=== PATIENT | male | born 1945 | race Caucasian/White ===

== ENCOUNTER 2020-09-20 08:07 | Outpatient (REF) | payer MEDICARE, SELFPAY ==
--- NOTE | ~2020-09-20 | US_ITS ---
EXAMINATION: US RETROPERITONEAL LIMITED (AORTA) CLINICAL INFORMATION: Screening for AAA. Tobacco abuse. COMPARISON: None. TECHNIQUE: Martin-scale, color Doppler and spectral Doppler evaluation of the abdominal aorta. Technically limited study secondary to bowel gas. FINDINGS: The measurements of the aorta in maximum AP and transverse dimensions respectively are as follows: There is moderate calcified plaque visualized in the abdominal aorta. Proximal: 3.0 x 2.9 cm. Mid: 2.3 x 2.3 cm. Distal: 1.8 x 2.0 cm. PSV: 102 cm/s. The measurements of the common iliac arteries in maximum AP and TRV dimensions are as follows: Right Common Iliac Artery: 1.2 x 1.2 cm. Left Common Iliac Artery: 1.2 x 1.2 cm. US/US aorta IMPRESSION: No evidence of abdominal aortic aneurysm. Moderate calcified plaque seen in the abdominal aorta. Normal bilateral common iliac arteries.
== END 2020-09-20 08:08 | disposition home or self-care (01) ==
LOC: HO.US 08:07
PROVIDERS: PCP Internal Medicine; Visit Provider Internal Medicine
DX: Z13.6 Encounter for screening for cardiovascular disorders (principal)
CPT/HCPCS: 76775

== ENCOUNTER 2022-07-23 16:14 | Inpatient (IN) | payer MEDICARE, SELFPAY ==
--- NOTE | ~2022-07-23 | XR_ITS ---
EXAMINATION: XR CHEST CLINICAL INFORMATION: Shortness of breath. COMPARISON: Chest radiograph 06/27/2015. TECHNIQUE: Frontal view of the chest was obtained. FINDINGS: Stable appearance of the cardiomediastinal silhouette with of atherosclerotic disease of the thoracic aorta. EKG wires overlie the chest. New diffuse interstitial coarsening. No dense focal airspace opacity. No pleural effusion or pneumothorax. No acute osseous abnormalities. XR/XR chest 1V IMPRESSION: New diffuse interstitial coarsening which is nonspecific and could be associated with bronchitis, reactive airways disease or atypical infections. Recommend clinical correlation and a follow-up study after treatment.
--- NOTE | 2022-07-23 16:16 | ED.SOB ---
HPI - SOB/Dyspnea General Chief Complaint: Dyspnea <RY Steiner - Last Filed: 07/23/22 16:25> Stated Complaint: SOB <RY Steiner - Last Filed: 07/23/22 16:25> Time Seen by Provider: 07/23/22 16:42 <RY Steiner - Last Filed: 07/23/22 16:25> Source: patient and family <Mariela Stinson MD - Last Filed: 07/23/22 20:09> Mode of arrival: ambulatory <Mariela Stinson MD - Last Filed: 07/23/22 20:09> History of Present Illness HPI Narrative: 77-year-old male who arrives as a referral from his primary care provider for shortness of breath. Patient and his report that he has had worsening shortness of breath over the past couple of weeks and has continued to smoke cigarettes and was noted to be 70% on room air upon arrival. He denies any associated fever, chills, but has had increased sputum production with cough. Otherwise he denies any GI or symptoms. <Mariela Stinson MD - Last Filed: 07/23/22 20:09> Related Data Home Medications: Home Medications Medication Instructions Recorded Confirmed albuterol sulfate 90 mcg/actuation 2 puff inhalation Q6H PRN wheezing 07/23/22 07/23/22 aerosol inhaler amlodipine 10 mg tablet 1 tab PO DAILY 07/23/22 07/23/22 cyanocobalamin (vitamin B-12) 1,000 mcg PO DAILY 07/23/22 07/23/22 1,000 mcg tablet garlic 1,000 mg capsule 2,000 mg PO DAILY 07/23/22 07/23/22 hydrochlorothiazide 12.5 mg tablet 1 tab PO DAILY 07/23/22 07/23/22 ketoconazole 2 % shampoo 1 appl topical MO 07/23/22 07/23/22 metformin 500 mg tablet,extended 2 tab PO DAILY@1700 07/23/22 07/23/22 release 24 hr multivitamin 1 tab PO DAILY 07/23/22 07/23/22 olmesartan 40 mg tablet 1 tab PO DAILY PRN high blood 07/23/22 07/23/22 pressure omega 6-lkd-hob-fish oil 1,000 mg 1 cap PO DAILY 07/23/22 07/23/22 (120 mg-180 mg) capsule (Fish Oil) simvastatin 10 mg tablet 1 tab PO BEDTIME 07/23/22 07/23/22 umeclidinium 62.5 mcg/actuation 1 puff inhalation DAILY 07/23/22 07/23/22 blister powder for inhalation (Incruse Ellipta) <RY Steiner - Last Filed: 07/23/22 16:25> Allergies/Adverse Reactions: Allergies Allergy/AdvReac Type Severity Reaction Status Date / Time No Known Allergies Allergy Unverified 04/06/20 15:42 [No Known Allergies*] <RY Steiner - Last Filed: 07/23/22 16:25> Review of Systems Review of Systems: Pertinent positives and negatives as stated in HPI <Mariela Stinson MD - Last Filed: 07/23/22 20:09> PMFSH Past Medical History Source: nursing notes reviewed <Mariela Stinson MD - Last Filed: 07/23/22 20:09> Social History Social History: Social History Advance Directives: No Advance Directives Information Provided: No <RY Steiner - Last Filed: 07/23/22 16:25> Physical Exam Vital Signs: Vital Signs: Last Vital Signs Temp 98.4 F 07/23/22 16:18 Pulse 97 07/23/22 18:09 Resp 15 07/23/22 18:09 BP 150/89 H 07/23/22 16:18 Pulse Ox 70 L 07/23/22 16:18 O2 Del Method 07/23/22 16:18 BMI result Body Mass Index 23.3 <RY Steiner - Last Filed: 07/23/22 16:25> Vital Signs: Last Vital Signs Temp 98.4 F 07/23/22 16:18 Pulse 97 07/23/22 18:09 Resp 15 07/23/22 18:09 BP 150/89 H 07/23/22 16:18 Pulse Ox 70 L 07/23/22 16:18 O2 Del Method 07/23/22 16:18 BMI result Body Mass Index 23.3 VITAL SIGNS: Reviewed. GENERAL: Chronically ill, elderly, in mild distress. HEAD: Normocephalic/atraumatic EYES: PERRLA, EOMI EARS: Ext canals without abnormality OROPHARYNX: no oral lesions noted, posterior pharynx clear LUNGS: Decreased breath sounds bilaterally with trace expiratory wheeze and occasional rhonchi, increased shortness of breath. SpO2<100> on 100% non-rebreather which is improved from 70% on room air. CARDIOVASCULAR: Regular rate and rhythm without noted murmurs, no JVD or lower extremity edema. ABDOMEN: Soft, non-tender, non-distended with bowel sounds. MUSCULOSKELETAL: No tenderness, deformities, or effusions noted on gross inspection. EXTREMITIES: No cyanosis, clubbing or edema. SKIN: Inspection of the skin reveals no rashes NEUROLOGIC: Alert and oriented x 3. Strength and sensation to light touch were grossly intact x 4. <Mariela Stinson MD - Last Filed: 07/23/22 20:09> Course Course Course Narrative: RME-- 77yo M w/PMHx DM, COPD, HTN, HLD, ?skin CA, c/o cough & SOB x 2 weeks. Sent in from urgent care for hypoxia 75-85% on RA. Denies CP, fever, recent travel, history of clots, pedal edema, sick contacts. Patient 70% on RA in triage increased to 100% on non-rebreather, coarse lung sounds throughout with diffuse rhonchi. No appreciable pedal edema Patient will be brought back to main department immediately EKG, labs, CXR, COVID/flu/RSV, DuoNeb, Solu-Medrol, magnesium ordered in triage <RY Steiner - Last Filed: 07/23/22 16:25> Medications Administered Discontinued Medications Generic Name Dose Route Start Last Admin Trade Name Freq PRN Reason Stop Dose Admin Albuterol Sulfate 7.5 mg/ 10 mg 07/23/22 16:19 07/23/22 17:43 Albuterol Sulfate 2.5 mg INHALE 07/23/22 16:20 Not Given ONCE ONE Albuterol Sulfate 2.5 mg/ 0 mg 07/23/22 16:19 07/23/22 17:04 Ipratropium [place] 0.5 mg INHALE 07/23/22 16:20 2.5 each ONCE ONE Administration Albuterol Sulfate 10 mg/ 0 mg 07/23/22 17:51 07/23/22 18:09 Ipratropium [place] 0.5 mg INHALE 07/23/22 17:52 10 each ONCE ONE Administration Magnesium Sulfate 2 gm in 50 mls @ 25 mls/hr 07/23/22 16:16 07/23/22 16:51 Magnesium Sulfate/H2o IV 07/23/22 18:15 25 mls/hr ONCE ONE Administration Methylprednisolone Sodium Succinate 125 mg 07/23/22 16:16 07/23/22 16:51 Methylprednisolone Sod Succ 125 Mg/2 Ml Vial IVPUSH 07/23/22 16:17 125 mg ONCE ONE Administration <RY Steiner - Last Filed: 07/23/22 16:25> Medications Administered Discontinued Medications Generic Name Dose Route Start Last Admin Trade Name Tylorq PRN Reason Stop Dose Admin Albuterol Sulfate 7.5 mg/ 10 mg 07/23/22 16:19 07/23/22 17:43 Albuterol Sulfate 2.5 mg INHALE 07/23/22 16:20 Not Given ONCE ONE Albuterol Sulfate 2.5 mg/ 0 mg 07/23/22 16:19 07/23/22 17:04 Ipratropium [place] 0.5 mg INHALE 07/23/22 16:20 2.5 each ONCE ONE Administration Albuterol Sulfate 10 mg/ 0 mg 07/23/22 17:51 07/23/22 18:09 Ipratropium [place] 0.5 mg INHALE 07/23/22 17:52 10 each ONCE ONE Administration Magnesium Sulfate 2 gm in 50 mls @ 25 mls/hr 07/23/22 16:16 07/23/22 16:51 Magnesium Sulfate/H2o IV 07/23/22 18:15 25 mls/hr ONCE ONE Administration Methylprednisolone Sodium Succinate 125 mg 07/23/22 16:16 07/23/22 16:51 Methylprednisolone Sod Succ 125 Mg/2 Ml Vial IVPUSH 07/23/22 16:17 125 mg ONCE ONE Administration <Mariela Stinson MD - Last Filed: 07/23/22 20:09> Medical Decision Making Medical Decision Making MDM Narrative: 77-year-old male who presents with shortness of breath and hypoxic. Patient started on DuoNebs as well as IV steroids and given supplemental oxygen 1800: I suspect infection 2000: My interpretation of entire workup is that this is a patient who is an acute COPD exacerbation/bronchitis with concomitant influenza a infection requiring supplemental oxygen. Patient to receive antibiotics and will be admitted. <Mariela Stinson MD - Last Filed: 07/23/22 20:09> Differential Diagnosis Differential Diagnoses: The differential diagnosis associated with the presentation includes <Mariela Stinson MD - Last Filed: 07/23/22 20:09> I will rule out pneumonia, COPD exacerbation, viral infection, CHF, cardiac ischemia <Mariela Stinson MD - Last Filed: 07/23/22 20:09> Admission/Observation Consideration of admission/observation: Escalation of care including admission/observation considered <Mariela Stinson MD - Last Filed: 07/23/22 20:09> Consult Healthcare Provider Management of the patient was discussed with: Hospitalist <Mariela Stinson MD - Last Filed: 07/23/22 20:09> 2002: I discussed the case with inpatient hospitalist who accepts admission. <Mariela Stinson MD - Last Filed: 07/23/22 20:09> Lab Data MDM Lab Attestation statement: I reviewed the patient's lab results. <Mariela Stinson MD - Last Filed: 07/23/22 20:09> Please see the discussion above <Mariela Stinson MD - Last Filed: 07/23/22 20:09> Result Diagrams: : 07/23/22 16:43 07/23/22 16:43 <RY Steiner - Last Filed: 07/23/22 16:25> Labs: Lab Results 07/23/22 07/23/22 07/23/22 Range/Units 16:43 16:43 16:43 WBC 13.2 H (4.8-10.8) X10*3/uL RBC 4.41 L (4.60-5.80) X10*6/uL Hgb 13.3 L (14.0-18.0) g/dl Hct 40.0 L (42.0-52.0) % MCV 90.7 (80.0-98.0) fL MCH 30.2 (27.0-33.0) pg MCHC 33.3 (31.0-36.0) g/dl RDW 12.9 (11.0-16.0) % Plt Count 304 (160-400) X10*3/uL MPV 10.1 (9.4-12.4) fL Immature Gran % (Auto) 2.2 H (0.0-0.4) % Neut % (Auto) 75.9 H (45-73) % Lymph % (Auto) 9.8 L (20-40) % [place] % (Auto) 11.8 H (2-11) % Eos % (Auto) 0.1 (0-4) % Baso % (Auto) 0.2 (0-2) % Lymph # (Auto) 1.3 (1.2-4.9) X10*3/uL [place] # (Auto) 1.6 H (0.1-1.2) X10*3/uL Eos # (Auto) 0.0 (0.0-0.4) X10*3/uL Baso # (Auto) 0.0 (0.0-0.2) X10*3/uL Abs Immat Gran (auto) 0.29 H (0.00-0.03) X10*3/uL Absolute Neuts (auto) 10.0 H (2.0-8.3) x10*3/uL Absolute Nucleated RBC 0.000 (0.0-0.012) X10*3/uL Nucleated RBC % (auto) 0.0 (0.0-0.2) /100WBC Smear Tech's Comments VERIFIED PT 12.1 (10.0-13.1) SEC INR 1.1 (0.9-1.1) Sodium 140 (135-145) mmol/L Potassium 4.2 (3.3-5.1) mmol/L Chloride 101 (96-108) mmol/L Carbon Dioxide 28 (22-29) mmol/L Anion Gap 15 (12-20) BUN 31 H (9-16) mg/dL Creatinine 1.49 H (0.5-1.4) mg/dL Estim Creat Clear Calc 36.6 Estimated GFR 46 Random Glucose 100 (60-115) mg/dL Lactic Acid (0.5-2.0) mmol/L Calcium 9.6 (8.4-10.2) mg/dL Magnesium 2.2 (1.6-2.6) mg/dL Total Bilirubin 1.4 H (0.0-1.0) mg/dL Direct Bilirubin 0.7 H (0.0-0.5) mg/dL AST 34 (5-37) U/L ALT 38 (0-40) U/L Alkaline Phosphatase 112 (39-117) U/L Troponin I High Sens (<3.5-35.0) ng/L B-Natriuretic Peptide (<100) pg/mL Total Protein 6.8 (6.5-8.0) g/dL Albumin 3.9 (3.5-5.0) g/dL Influenza Type A (PCR) (Negative) Influenza Type B (PCR) (Negative) RSV RNA Qual (PCR) (Negative) SARS-CoV-2 RNA (RT-PCR) (Negative) 07/23/22 07/23/22 07/23/22 Range/Units 16:43 16:43 16:52 WBC (4.8-10.8) X10*3/uL RBC (4.60-5.80) X10*6/uL Hgb (14.0-18.0) g/dl Hct (42.0-52.0) % MCV (80.0-98.0) fL MCH (27.0-33.0) pg MCHC (31.0-36.0) g/dl RDW (11.0-16.0) % Plt Count (160-400) X10*3/uL MPV (9.4-12.4) fL Immature Gran % (Auto) (0.0-0.4) % Neut % (Auto) (45-73) % Lymph % (Auto) (20-40) % [place] % (Auto) (2-11) % Eos % (Auto) (0-4) % Baso % (Auto) (0-2) % Lymph # (Auto) (1.2-4.9) X10*3/uL [place] # (Auto) (0.1-1.2) X10*3/uL Eos # (Auto) (0.0-0.4) X10*3/uL Baso # (Auto) (0.0-0.2) X10*3/uL Abs Immat Gran (auto) (0.00-0.03) X10*3/uL Absolute Neuts (auto) (2.0-8.3) x10*3/uL Absolute Nucleated RBC (0.0-0.012) X10*3/uL Nucleated RBC % (auto) (0.0-0.2) /100WBC Smear Tech's Comments PT (10.0-13.1) SEC INR (0.9-1.1) Sodium (135-145) mmol/L Potassium (3.3-5.1) mmol/L Chloride (96-108) mmol/L Carbon Dioxide (22-29) mmol/L Anion Gap (12-20) BUN (9-16) mg/dL Creatinine (0.5-1.4) mg/dL Estim Creat Clear Calc Estimated GFR Random Glucose (60-115) mg/dL Lactic Acid (0.5-2.0) mmol/L Calcium (8.4-10.2) mg/dL Magnesium (1.6-2.6) mg/dL Total Bilirubin (0.0-1.0) mg/dL Direct Bilirubin (0.0-0.5) mg/dL AST (5-37) U/L ALT (0-40) U/L Alkaline Phosphatase (39-117) U/L Troponin I High Sens 19.1 (<3.5-35.0) ng/L B-Natriuretic Peptide 76 (<100) pg/mL Total Protein (6.5-8.0) g/dL Albumin (3.5-5.0) g/dL Influenza Type A (PCR) POSITIVE A (Negative) Influenza Type B (PCR) NEGATIVE (Negative) RSV RNA Qual (PCR) NEGATIVE (Negative) SARS-CoV-2 RNA (RT-PCR) NEGATIVE (Negative) 07/23/22 Range/Units 17:03 WBC (4.8-10.8) X10*3/uL RBC (4.60-5.80) X10*6/uL Hgb (14.0-18.0) g/dl Hct (42.0-52.0) % MCV (80.0-98.0) fL MCH (27.0-33.0) pg MCHC (31.0-36.0) g/dl RDW (11.0-16.0) % Plt Count (160-400) X10*3/uL MPV (9.4-12.4) fL Immature Gran % (Auto) (0.0-0.4) % Neut % (Auto) (45-73) % Lymph % (Auto) (20-40) % [place] % (Auto) (2-11) % Eos % (Auto) (0-4) % Baso % (Auto) (0-2) % Lymph # (Auto) (1.2-4.9) X10*3/uL [place] # (Auto) (0.1-1.2) X10*3/uL Eos # (Auto) (0.0-0.4) X10*3/uL Baso # (Auto) (0.0-0.2) X10*3/uL Abs Immat Gran (auto) (0.00-0.03) X10*3/uL Absolute Neuts (auto) (2.0-8.3) x10*3/uL Absolute Nucleated RBC (0.0-0.012) X10*3/uL Nucleated RBC % (auto) (0.0-0.2) /100WBC Smear Tech's Comments PT (10.0-13.1) SEC INR (0.9-1.1) Sodium (135-145) mmol/L Potassium (3.3-5.1) mmol/L Chloride (96-108) mmol/L Carbon Dioxide (22-29) mmol/L Anion Gap (12-20) BUN (9-16) mg/dL Creatinine (0.5-1.4) mg/dL Estim Creat Clear Calc Estimated GFR Random Glucose (60-115) mg/dL Lactic Acid 0.8 (0.5-2.0) mmol/L Calcium (8.4-10.2) mg/dL Magnesium (1.6-2.6) mg/dL Total Bilirubin (0.0-1.0) mg/dL Direct Bilirubin (0.0-0.5) mg/dL AST (5-37) U/L ALT (0-40) U/L Alkaline Phosphatase (39-117) U/L Troponin I High Sens (<3.5-35.0) ng/L B-Natriuretic Peptide (<100) pg/mL Total Protein (6.5-8.0) g/dL Albumin (3.5-5.0) g/dL Influenza Type A (PCR) (Negative) Influenza Type B (PCR) (Negative) RSV RNA Qual (PCR) (Negative) SARS-CoV-2 RNA (RT-PCR) (Negative) <RY Steiner - Last Filed: 07/23/22 16:25> Lab Results 07/23/22 07/23/22 07/23/22 Range/Units 16:43 16:43 16:43 WBC 13.2 H (4.8-10.8) X10*3/uL RBC 4.41 L (4.60-5.80) X10*6/uL Hgb 13.3 L (14.0-18.0) g/dl Hct 40.0 L (42.0-52.0) % MCV 90.7 (80.0-98.0) fL MCH 30.2 (27.0-33.0) pg MCHC 33.3 (31.0-36.0) g/dl RDW 12.9 (11.0-16.0) % Plt Count 304 (160-400) X10*3/uL MPV 10.1 (9.4-12.4) fL Immature Gran % (Auto) 2.2 H (0.0-0.4) % Neut % (Auto) 75.9 H (45-73) % Lymph % (Auto) 9.8 L (20-40) % [place] % (Auto) 11.8 H (2-11) % Eos % (Auto) 0.1 (0-4) % Baso % (Auto) 0.2 (0-2) % Lymph # (Auto) 1.3 (1.2-4.9) X10*3/uL [place] # (Auto) 1.6 H (0.1-1.2) X10*3/uL Eos # (Auto) 0.0 (0.0-0.4) X10*3/uL Baso # (Auto) 0.0 (0.0-0.2) X10*3/uL Abs Immat Gran (auto) 0.29 H (0.00-0.03) X10*3/uL Absolute Neuts (auto) 10.0 H (2.0-8.3) x10*3/uL Absolute Nucleated RBC 0.000 (0.0-0.012) X10*3/uL Nucleated RBC % (auto) 0.0 (0.0-0.2) /100WBC Smear Tech's Comments VERIFIED PT 12.1 (10.0-13.1) SEC INR 1.1 (0.9-1.1) Sodium 140 (135-145) mmol/L Potassium 4.2 (3.3-5.1) mmol/L Chloride 101 (96-108) mmol/L Carbon Dioxide 28 (22-29) mmol/L Anion Gap 15 (12-20) BUN 31 H (9-16) mg/dL Creatinine 1.49 H (0.5-1.4) mg/dL Estim Creat Clear Calc 36.6 Estimated GFR 46 Random Glucose 100 (60-115) mg/dL Lactic Acid (0.5-2.0) mmol/L Calcium 9.6 (8.4-10.2) mg/dL Magnesium 2.2 (1.6-2.6) mg/dL Total Bilirubin 1.4 H (0.0-1.0) mg/dL Direct Bilirubin 0.7 H (0.0-0.5) mg/dL AST 34 (5-37) U/L ALT 38 (0-40) U/L Alkaline Phosphatase 112 (39-117) U/L Troponin I High Sens (<3.5-35.0) ng/L B-Natriuretic Peptide (<100) pg/mL Total Protein 6.8 (6.5-8.0) g/dL Albumin 3.9 (3.5-5.0) g/dL Influenza Type A (PCR) (Negative) Influenza Type B (PCR) (Negative) RSV RNA Qual (PCR) (Negative) SARS-CoV-2 RNA (RT-PCR) (Negative) 07/23/22 07/23/22 07/23/22 Range/Units 16:43 16:43 16:52 WBC (4.8-10.8) X10*3/uL RBC (4.60-5.80) X10*6/uL Hgb (14.0-18.0) g/dl Hct (42.0-52.0) % MCV (80.0-98.0) fL MCH (27.0-33.0) pg MCHC (31.0-36.0) g/dl RDW (11.0-16.0) % Plt Count (160-400) X10*3/uL MPV (9.4-12.4) fL Immature Gran % (Auto) (0.0-0.4) % Neut % (Auto) (45-73) % Lymph % (Auto) (20-40) % [place] % (Auto) (2-11) % Eos % (Auto) (0-4) % Baso % (Auto) (0-2) % Lymph # (Auto) (1.2-4.9) X10*3/uL [place] # (Auto) (0.1-1.2) X10*3/uL Eos # (Auto) (0.0-0.4) X10*3/uL Baso # (Auto) (0.0-0.2) X10*3/uL Abs Immat Gran (auto) (0.00-0.03) X10*3/uL Absolute Neuts (auto) (2.0-8.3) x10*3/uL Absolute Nucleated RBC (0.0-0.012) X10*3/uL Nucleated RBC % (auto) (0.0-0.2) /100WBC Smear Tech's Comments PT (10.0-13.1) SEC INR (0.9-1.1) Sodium (135-145) mmol/L Potassium (3.3-5.1) mmol/L Chloride (96-108) mmol/L Carbon Dioxide (22-29) mmol/L Anion Gap (12-20) BUN (9-16) mg/dL Creatinine (0.5-1.4) mg/dL Estim Creat Clear Calc Estimated GFR Random Glucose (60-115) mg/dL Lactic Acid (0.5-2.0) mmol/L Calcium (8.4-10.2) mg/dL Magnesium (1.6-2.6) mg/dL Total Bilirubin (0.0-1.0) mg/dL Direct Bilirubin (0.0-0.5) mg/dL AST (5-37) U/L ALT (0-40) U/L Alkaline Phosphatase (39-117) U/L Troponin I High Sens 19.1 (<3.5-35.0) ng/L B-Natriuretic Peptide 76 (<100) pg/mL Total Protein (6.5-8.0) g/dL Albumin (3.5-5.0) g/dL Influenza Type A (PCR) POSITIVE A (Negative) Influenza Type B (PCR) NEGATIVE (Negative) RSV RNA Qual (PCR) NEGATIVE (Negative) SARS-CoV-2 RNA (RT-PCR) NEGATIVE (Negative) 07/23/22 Range/Units 17:03 WBC (4.8-10.8) X10*3/uL RBC (4.60-5.80) X10*6/uL Hgb (14.0-18.0) g/dl Hct (42.0-52.0) % MCV (80.0-98.0) fL MCH (27.0-33.0) pg MCHC (31.0-36.0) g/dl RDW (11.0-16.0) % Plt Count (160-400) X10*3/uL MPV (9.4-12.4) fL Immature Gran % (Auto) (0.0-0.4) % Neut % (Auto) (45-73) % Lymph % (Auto) (20-40) % [place] % (Auto) (2-11) % Eos % (Auto) (0-4) % Baso % (Auto) (0-2) % Lymph # (Auto) (1.2-4.9) X10*3/uL [place] # (Auto) (0.1-1.2) X10*3/uL Eos # (Auto) (0.0-0.4) X10*3/uL Baso # (Auto) (0.0-0.2) X10*3/uL Abs Immat Gran (auto) (0.00-0.03) X10*3/uL Absolute Neuts (auto) (2.0-8.3) x10*3/uL Absolute Nucleated RBC (0.0-0.012) X10*3/uL Nucleated RBC % (auto) (0.0-0.2) /100WBC Smear Tech's Comments PT (10.0-13.1) SEC INR (0.9-1.1) Sodium (135-145) mmol/L Potassium (3.3-5.1) mmol/L Chloride (96-108) mmol/L Carbon Dioxide (22-29) mmol/L Anion Gap (12-20) BUN (9-16) mg/dL Creatinine (0.5-1.4) mg/dL Estim Creat Clear Calc Estimated GFR Random Glucose (60-115) mg/dL Lactic Acid 0.8 (0.5-2.0) mmol/L Calcium (8.4-10.2) mg/dL Magnesium (1.6-2.6) mg/dL Total Bilirubin (0.0-1.0) mg/dL Direct Bilirubin (0.0-0.5) mg/dL AST (5-37) U/L ALT (0-40) U/L Alkaline Phosphatase (39-117) U/L Troponin I High Sens (<3.5-35.0) ng/L B-Natriuretic Peptide (<100) pg/mL Total Protein (6.5-8.0) g/dL Albumin (3.5-5.0) g/dL Influenza Type A (PCR) (Negative) Influenza Type B (PCR) (Negative) RSV RNA Qual (PCR) (Negative) SARS-CoV-2 RNA (RT-PCR) (Negative) <Mariela Stinson MD - Last Filed: 07/23/22 20:09> Independent Interpretation I performed an independent interpretation of an: EKG <Mariela Stinson MD - Last Filed: 07/23/22 20:09> Interpretation: Normal sinus rhythm, HR-86, no STEMI, WA/QRS/QTC is within normal limits. <Mariela Stinson MD - Last Filed: 07/23/22 20:09> Radiology Impression Radiologist Impression: My interpretation is in agreement with radiology's impression of imaging studies. <Mariela Stinson MD - Last Filed: 07/23/22 20:09> External Record Review External record reviewed: Inpatient record, Outpatient record and Prior outpatient labs <Mariela Stinson MD - Last Filed: 07/23/22 20:09> Chronic Conditions Patient?s care impacted by: Diabetes and Hypertension <Mariela Stinson MD - Last Filed: 07/23/22 20:09> Critical Care Time Critical Care Time Critical Care Time: Yes <Mariela Stinson MD - Last Filed: 07/23/22 20:09> Total Critical Care Time: 45 <Mariela Stinson MD - Last Filed: 07/23/22 20:09> Attestation: I personally attest to this time spent taking care of the patient. <Mariela Stinson MD - Last Filed: 07/23/22 20:09> Discharge Plan Discharge Clinical Impression: Hypoxia, COPD exacerbation, Acute on chronic renal failure, Acute bronchitis with COPD <RY Steiner - Last Filed: 07/23/22 16:25> Patient Disposition: Admitted As Inpatient <RY Steiner - Last Filed: 07/23/22 16:25> Prescriptions: No Action multivitamin Tablet 1 tab PO DAILY ketoconazole 2 % shampoo 1 appl TOPICAL MO simvastatin 10 mg tablet 1 tab PO BEDTIME cyanocobalamin (vitamin B-12) 1,000 mcg Tablet 1,000 mcg PO DAILY garlic 1,000 mg Capsule 2,000 mg PO DAILY amlodipine 10 mg tablet 1 tab PO DAILY albuterol sulfate 90 mcg/actuation HFA aerosol inhaler 2 puff inhalation Q6H PRN (Reason: wheezing) metformin 500 mg tablet extended release 24 hr 2 tab PO DAILY@1700 olmesartan 40 mg tablet 1 tab PO DAILY PRN (Reason: high blood pressure) hydrochlorothiazide 12.5 mg tablet 1 tab PO DAILY omega 7-yji-lay-fish oil [Fish Oil] 1,000 mg (120 mg-180 mg) Capsule 1 cap PO DAILY Incruse Ellipta 62.5 mcg/actuation blister with device 1 puff inhalation DAILY <RY Steiner - Last Filed: 07/23/22 16:25>
[2022-07-23 16:18] VITALS: BP 150/89; PULSE 88; RESP 40; TEMP 36.9; O2SAT 70; BMI 23.3
--- NOTE | 2022-07-23 16:18 | ECG_ITS ---
Test Reason : SOB Blood Pressure : / mmHG Vent. Rate : 086 BPM Atrial Rate : 086 BPM P-R Int : 130 ms QRS Dur : 096 ms QT Int : 358 ms P-R-T Axes : 071 055 062 degrees QTc Int : 428 ms Normal sinus rhythm Incomplete right bundle branch block Nonspecific ST abnormality Abnormal ECG No previous ECGs available Referred By: Darcy Soriano Electronically Signed By:RAFAELA PRATHER
[2022-07-23] MEDS: Magnesium Sulfate/H2O 2 GM/50 ML PIGGYBACK IV (16:51)
[2022-07-23] MEDS: methylPREDNISolone Sod Succ 125 MG/2 ML VIAL IVPUSH (16:51)
[2022-07-23 16:59] LABS: INTERNATIONAL NORM RATIO 1.1 (0.9-1.1); Prothrombin Time 12.1 SEC (10.0-13.1)
[2022-07-23 17:05] LABS: Alanine Aminotransferase 38 U/L (0-40); Albumin Level 3.9 g/dL (3.5-5.0); Alkaline Phosphatase 112 U/L (39-117); Anion Gap 15 (12-20); Aspartate Amino Transferase 34 U/L (5-37); Bilirubin Direct 0.7 mg/dL (0.0-0.5); Bilirubin Total 1.4 mg/dL (0.0-1.0); Blood Urea Nitrogen 31 mg/dL (9-16); Calcium 9.6 mg/dL (8.4-10.2); Carbon Dioxide 28 mmol/L (22-29); Chloride 101 mmol/L (96-108); Creatinine Clr Calc Pharmacy 36.6; Estimated Glomerular Filt Rate 46; Glucose Random 100 mg/dL (60-115); Magnesium 2.2 mg/dL (1.6-2.6); Potassium 4.2 mmol/L (3.3-5.1); Sodium 140 mmol/L (135-145); Total Protein 6.8 g/dL (6.5-8.0)
[2022-07-23 17:07] VITALS: PULSE 81; RESP 20; O2SAT 91
[2022-07-23 17:08] LABS: Basophils Percent Auto 0.2 % (0-2); Eosinophils Percent Auto 0.1 % (0-4); Hemoglobin 13.3 g/dl (14.0-18.0); Imm Gran Abs Auto 0.29 X10*3/uL (0.00-0.03); Imm Gran Pct Auto 2.2 % (0.0-0.4); Lymphocytes Absolute Auto 1.3 X10*3/uL (1.2-4.9); Lymphocytes Percent Auto 9.8 % (20-40); MANUAL DIFF FLAG SCAN; Mean Corpuscular HGB Conc 33.3 g/dl (31.0-36.0); Mean Corpuscular Hemoglobin 30.2 pg (27.0-33.0); Mean Corpuscular Volume 90.7 fL (80.0-98.0); Mean Platelet Volume 10.1 fL (9.4-12.4); Monocytes Absolute Auto 1.6 X10*3/uL (0.1-1.2); Monocytes Percent Auto 11.8 % (2-11); Neutrophils Percent Auto 75.9 % (45-73); Platelet Count 304 X10*3/uL (160-400); Red Blood Count 4.41 X10*6/uL (4.60-5.80); Red Cell Distribution Width 12.9 % (11.0-16.0); SCAN SMEAR FLAG 1; White Blood Count 13.2 X10*3/uL (4.8-10.8)
--- NOTE | 2022-07-23 17:14 | PHA.MEDREC ---
Pharmacy Consult ? Medication Reconciliation Pharmacy has completed the medication reconciliation.
[2022-07-23 17:16] LABS: Troponin-I High Sensitivity 19.1 ng/L (<3.5-35.0)
[2022-07-23 17:18] LABS: B Type Natriuretic Peptide 76 pg/mL (<100)
[2022-07-23 17:21] LABS: Lactic Acid 0.8 mmol/L (0.5-2.0)
[2022-07-23 17:33] LABS: SLIDE REVIEW VERIFIED
[2022-07-23 17:54] LABS: Influenza A PCR POSITIVE (Negative); Influenza B PCR NEGATIVE (Negative); Resp Syncy Virus RNA Qual PCR NEGATIVE (Negative); SARS COV2 PCR INHOUSE NEGATIVE (Negative)
[2022-07-23 18:09] VITALS: PULSE 97; RESP 15; O2SAT 90
--- NOTE | 2022-07-23 20:06 | P.HPHOSP_ITS ---
History of Present Illness Date of Service: 07/23/22 Attending physician on admission: Katherine Haskins Chief Complaint: SOB Pt is a 77-year-old male with a PMH significant for?COPD, diabetes, HTN, and HLD who presents to the ED with?cough and shortness of breath. Patient states that the symptoms began approximately 3 weeks ago when he began coughing and feeling short of breath. Symptoms initially got better but did not fully resolve and then they became worse. 2-3 days ago patient was noted to be very weak and shaking when trying to walk. Patient then went to his PCP who noted him to be hypoxic and sent him to the ED. Patient has not been eating or drinking much during this period of time; his notes that he has not been drinking fluids even though family has been encouraging him to. Also complains of having headache, and he has become especially weak in the last 2 days to the fact that he has been shaking uncontrollably when trying to move. Patient self reports a low-grade fever on and off for the past few weeks with occasional nausea. No chills, vomiting. No chest pain/pressure, palpitations. No abdominal pain. Patient is former smoker of at least 1 pack a day for many years who has recently quit. In the ED patient was afebrile but initially tachypneic at 40 and hypoxic at 70 on RA. Labs were significant for leukocytosis of 13.2, elevated BUN of 31, mild hyperbilirubinemia, elevated creatinine of 1.49 (baseline unknown), and lactic acid WNL. Patient tested positive for influenza A. CXR showed new diffuse interstitial coarsening which is nonspecific and could be associated with bronchitis, reactive airway disease, or atypical infection. Pt was treated with DuoNebs, Solu-Medrol, and Zosyn. Pt will be admitted to the hospital for treatment for hypoxia and respiratory failure in setting of COPD exacerbation and influenza infection. Review of Systems Review of Systems: Shortness of breath Productive cough Generalized weakness and fatigue with tremors Intermittent Headache Denies chest pain/pressure, palpitations No abdominal pain Yes all other systems are reviewed and are negative [facility] Social History Advance Directives: No Advance Directives Information Provided: No Meds Allergies Allergy/AdvReac Type Severity Reaction Status Date / Time No Known Allergies Allergy Unverified 04/06/20 15:42 [No Known Allergies*] Active Medications: Current Medications Piperacillin Sod/Tazobactam (Sod 3.375 gm/ Sodium Chloride) 50 mls @ 100 mls/hr IV ONCE ONE Stop: 07/23/22 20:27 Home Medications Medication Instructions Recorded Confirmed Last Taken Type albuterol sulfate 90 mcg/actuation 2 puff inhalation Q6H PRN wheezing 07/23/22 07/23/22 Unknown History aerosol inhaler amlodipine 10 mg tablet 1 tab PO DAILY 07/23/22 07/23/22 07/23/22 History cyanocobalamin (vitamin B-12) 1,000 mcg PO DAILY 07/23/22 07/23/22 07/23/22 History 1,000 mcg tablet garlic 1,000 mg capsule 2,000 mg PO DAILY 07/23/22 07/23/22 07/23/22 History hydrochlorothiazide 12.5 mg tablet 1 tab PO DAILY 07/23/22 07/23/22 07/23/22 History ketoconazole 2 % shampoo 1 appl topical MO 07/23/22 07/23/22 07/22/22 History metformin 500 mg tablet,extended 2 tab PO DAILY@1700 07/23/22 07/23/22 07/22/22 History release 24 hr multivitamin 1 tab PO DAILY 07/23/22 07/23/22 07/23/22 History olmesartan 40 mg tablet 1 tab PO DAILY PRN high blood 07/23/22 07/23/22 Unknown History pressure omega 3-bif-fnc-fish oil 1,000 mg 1 cap PO DAILY 07/23/22 07/23/22 07/23/22 History (120 mg-180 mg) capsule (Fish Oil) simvastatin 10 mg tablet 1 tab PO BEDTIME 07/23/22 07/23/22 07/22/22 History umeclidinium 62.5 mcg/actuation 1 puff inhalation DAILY 07/23/22 07/23/22 07/23/22 History blister powder for inhalation (Incruse Ellipta) Physical Exam Vital Signs and Narrative: Vital Signs: Last Vital Signs Temp 98.4 F 07/23/22 16:18 Pulse 97 07/23/22 18:09 Resp 15 07/23/22 18:09 BP 150/89 H 07/23/22 16:18 Pulse Ox 70 L 07/23/22 16:18 O2 Del Method 07/23/22 16:18 BMI result Body Mass Index 23.3 Constitutional: Alert, in respiratory distress, using a non-rebreather. Mental Status: Oriented to person, place and time. Eyes: Pupils are equal, round, and reactive to light. Ear, Nose, and Throat: Oropharynx clear, mucous membranes dry. Ears and nose without deformities. Trachea midline. Respiratory: Coarse lung sounds throughout bilaterally. Mild rhonchi bilaterally. Cardiovascular: S1, S2. Tachycardic. No murmurs, rubs, or gallops. Gastrointestinal: Abdomen soft, non-tender, non-distended. Normal bowel sounds. Neurologic: Cranial nerves II-XI are grossly intact. No focal neurological deficits. Moves all extremities spontaneously. Skin: No rashes or lesions noted. Musculoskeletal: No cyanosis or clubbing. Extremities: No edema. Psychiatric: Normal mood and affect. Results Labs CBC and Chem 7: 07/23/22 16:43 07/23/22 16:43 Labs: Laboratory Results - last 24 hr 07/23/22 07/23/22 07/23/22 16:43 16:43 16:43 MCV 90.7 MCH 30.2 MCHC 33.3 RDW 12.9 Plt Count 304 MPV 10.1 Immature Gran % (Auto) 2.2 H Neut % (Auto) 75.9 H Lymph % (Auto) 9.8 L [place] % (Auto) 11.8 H Eos % (Auto) 0.1 Baso % (Auto) 0.2 Lymph # (Auto) 1.3 [place] # (Auto) 1.6 H Eos # (Auto) 0.0 Baso # (Auto) 0.0 Abs Immat Gran (auto) 0.29 H Absolute Neuts (auto) 10.0 H Absolute Nucleated RBC 0.000 Nucleated RBC % (auto) 0.0 Smear Tech's Comments VERIFIED PT 12.1 INR 1.1 Anion Gap 15 Estim Creat Clear Calc 36.6 Estimated GFR 46 Random Glucose 100 Lactic Acid Calcium 9.6 Magnesium 2.2 Total Bilirubin 1.4 H Direct Bilirubin 0.7 H AST 34 ALT 38 Alkaline Phosphatase 112 Troponin I High Sens B-Natriuretic Peptide Total Protein 6.8 Albumin 3.9 Influenza Type A (PCR) Influenza Type B (PCR) RSV RNA Qual (PCR) SARS-CoV-2 RNA (RT-PCR) 07/23/22 07/23/22 07/23/22 16:43 16:43 16:52 MCV MCH MCHC RDW Plt Count MPV Immature Gran % (Auto) Neut % (Auto) Lymph % (Auto) [place] % (Auto) Eos % (Auto) Baso % (Auto) Lymph # (Auto) [place] # (Auto) Eos # (Auto) Baso # (Auto) Abs Immat Gran (auto) Absolute Neuts (auto) Absolute Nucleated RBC Nucleated RBC % (auto) Smear Tech's Comments PT INR Anion Gap Estim Creat Clear Calc Estimated GFR Random Glucose Lactic Acid Calcium Magnesium Total Bilirubin Direct Bilirubin AST ALT Alkaline Phosphatase Troponin I High Sens 19.1 B-Natriuretic Peptide 76 Total Protein Albumin Influenza Type A (PCR) POSITIVE A Influenza Type B (PCR) NEGATIVE RSV RNA Qual (PCR) NEGATIVE SARS-CoV-2 RNA (RT-PCR) NEGATIVE 07/23/22 17:03 MCV MCH MCHC RDW Plt Count MPV Immature Gran % (Auto) Neut % (Auto) Lymph % (Auto) [place] % (Auto) Eos % (Auto) Baso % (Auto) Lymph # (Auto) [place] # (Auto) Eos # (Auto) Baso # (Auto) Abs Immat Gran (auto) Absolute Neuts (auto) Absolute Nucleated RBC Nucleated RBC % (auto) Smear Tech's Comments PT INR Anion Gap Estim Creat Clear Calc Estimated GFR Random Glucose Lactic Acid 0.8 Calcium Magnesium Total Bilirubin Direct Bilirubin AST ALT Alkaline Phosphatase Troponin I High Sens B-Natriuretic Peptide Total Protein Albumin Influenza Type A (PCR) Influenza Type B (PCR) RSV RNA Qual (PCR) SARS-CoV-2 RNA (RT-PCR) Imaging Radiologist's Impressions: Impressions Chest X-Ray 07/23/22 16:51 IMPRESSION: New diffuse interstitial coarsening which is nonspecific and could be associated with bronchitis, reactive airways disease or atypical infections. Recommend clinical correlation and a follow-up study after treatment. Assessment and Plan (1) Hypoxia: Status: Acute (2) COPD exacerbation: Status: Acute (3) Influenza A: Status: Acute Plan Pt is a 77-year-old male with a PMH significant for?COPD, diabetes, HTN, and HLD who presents to the ED with?worsening cough and shortness of breath x3 weeks. Pt was hypoxic at O2 sat of 70 on RA on arrival and tested positive for influenza A. Hypoxic respiratory failure in the setting of acute COPD exacerbation and influenza infection Tamiflu 30 mg b.i.d. 1/5 days, renally dosed DuoNebs Q 4 while awake? Solu-Medrol 40 mg b.i.d.? Azithromycin for COPD exacearbation Continue on non-rebreather and wean as tolerated with goal of O2>92 Monitor respiratory status Sepsis Likely viral rather than bacterial Chest x-ray showed no focal consolidation, patient afebrile upon presentation, lactic acid WNL Check procalcitonin Azithromycin for COPD exacerbation ELSIE Creatinine 1.49, baseline unknown Likely secondary to dehydration due to poor p.o. intake for the past 3 weeks while still taking hydrochlorothiazide 1L IVF tonight, check labs and BP tomorrow and supplement as necessary HTN Hold hydrochlorothiazide for now while receiving IV fluids for dehydration HLD Continue home meds Non insulin-dependent diabetes Hold metformin SSI Full Code Attending:?Dr. Haskins DVT Prophylaxis: Lovenox Pt will require a hospitalization of at least two nights for treatment of hypoxic respiratory failure in the setting of acute COPD and influenza infection.. Time Spent With Patient Time: Total time managing care of this patient today ____ minutes. Quality Stroke Does the patient have a stroke diagnosis?: No VTE Prior VTE?: No VTE Risk Level:: Medical - moderate - high VTE Device Contraindication: Treatment Not Indicated VTE Drug Contraindication: N/A - Med Ordered
[2022-07-23] MEDS: Piperacillin Sodium/Tazobactam 3.375 GM in 0.9 % Sodium Chloride 50 ML IV (20:08)
[2022-07-23 20:11] VITALS: PULSE 97; RESP 15; O2SAT 90
[2022-07-23 20:14] LABS: VBG Base Excess -5.4 mmol/L; VBG HCO3 18 mmol/L (22-26); VBG pCO2 31 mmHg; VBG pH 7.37 (7.32-7.43); VBG pO2 76 mmHg
[2022-07-23 20:14] LABS: Venous Blood Gas Refer to POC result
--- OUTSIDE RECORDS SUMMARY | 2022-07-23 21:22 | XMS_ITS ---
:1945 Author Name ScottyGabriel barry Care Team Providers Name Role Phone Gabriel Fajardo Unavailable Unavailable PROBLEMS Type Condition ICD9-CM [id number] Onset Condition SNOMED Cod e Code Code Dates Status Problem Other hammer M20.42 Active 8679469 [id number] toe(s) (acquired), left foot Problem Type 2 diabetes E11.51 Active 3149 85674 mellitus with diabetic peripheral angiopathy without gangrene Problem Plantar wart B07.0 Active 8599240 8 Problem Other hammer M20.41 Active 6439929 [id number] toe(s) (acquired), right foot ALLERGIES No Known Allergies ENCOUNTERS Encounter Location Date Diagnosis [address] May, Aris n in right toe(s) [place], [place] M79.674 ; Pain in left [address] toe(s) M79.675 ; Tinea unguium B35.1 ; Plantar wart B07.0 ; Aris n in right foot M79.6 71 ; Other hammer toe (s) (acquired), righ t foot M20.41 ; Other h ammer toe(s) (acquired ), left foot M20.42 and Type 2 diabetes mellitu s with diabetic periphe ral angiopathy witho ut gangrene E11.51 [facility] [address] [address] 14 Mar, 2022 [place] [address] [facility] Oct, Typ e 2 diabetes mellitus [place]enio [place] without complic [place]ion [address] E11.9 ; Pain in right toe(s) M79.674 ; Tinea unguium B35.1 ; Pain in left toe(s) M79. 675 ; Plantar wart B07 .0 ; Pain in right foot M7 9.671 ; Other hammer toe (s) (acquired), righ t foot M20.41 and Other hammer toe(s) (acquired ), left foot M20.[address] 17 Mar, 2020 Typ e 2 diabetes mellitus Eugenio Becker [place] without complic [place]ion [address] E11.9 ; Pain in right toe(s) M79.674 ; Tinea unguium B35.1 ; Pain in left toe(s) M79. 675 ; Plantar wart B07 .0 ; Pain in right foot M7 9.671 ; Other hammer toe (s) (acquired), righ t foot M20.41 and Other hammer toe(s) (acquired ), left foot M20.[address] Sep, Tin ea unguium B35.1 ; Eugenio Becker [place] Plantar wart B0 7.0 ; [address] Other hammer toe (s) (acquired), righ t foot M20.41 ; Other h ammer toe(s) (acquired ), left foot M20.42 ; Pa in in right foot M79.6 71 ; Pain in right toe(s) M79.674 ; Pain in left toe (s) M79.675 and Type 2 diabetes mellitu s without complications E1 1.[address] Mar, Tin ea unguium B35.1 ; Eugenio Becker [place] Plantar wart B0 7.0 ; [address] Other hammer toe (s) (acquired), righ t foot M20.41 ; Other h ammer toe(s) (acquired ), left foot M20.42 ; Pa in in right foot M79.6 71 ; Pain in right toe(s) M79.674 ; Pain in left toe (s) M79.675 and Type 2 diabetes mellitu s without complications E1 1.[address] Sep, Tin ea unguium B35.1 ; Eugenio Becker [place] Plantar wart B0 7.0 ; [address] Other hammer toe (s) (acquired), righ t foot M20.41 ; Other h ammer toe(s) (acquired ), left foot M20.42 ; Pa in in right foot M79.6 71 ; Pain in right toe(s) M79.674 ; Pain in left toe (s) M79.675 and Type 2 diabetes mellitu s without complications E1 1. [address] Mar, Tin ea unguium B35.1 ; Eugenio Becker [place] Plantar wart B0 7.0 ; [address] Other hammer toe (s) (acquired), righ t foot M20.41 ; Other h ammer toe(s) (acquired ), left foot M20.42 ; Pa in in right foot M79.6 71 ; Pain in right toe(s) M79.674 ; Pain in left toe (s) M79.675 and Type 2 diabetes mellitu s without complications E1 1.[address] Sep, Eugenio Becker ALEJANDR[place] [address] Sep, Tin ea unguium B35.1 ; Eugenio Becker [place] Plantar wart B0 7.0 ; [address] Other hammer toe (s) (acquired), righ t foot M20.41 ; Other h ammer toe(s) (acquired ), left foot M20.42 ; Pa in in right foot M79.6 71 ; Pain in right toe(s) M79.674 ; Pain in left toe (s) M79.675 and Type 2 diabetes mellitu s without complications E1 1.[address] Mar, Tin ea unguium B35.1 ; Eugenio Becker [place] Plantar wart B0 7.0 ; [address] Other hammer toe (s) (acquired), righ t foot M20.41 ; Other h ammer toe(s) (acquired ), left foot M20.42 ; Pa in in right foot M79.6 71 ; Pain in right toe(s) M79.674 ; Pain in left toe (s) M79.675 and Type 2 diabetes mellitu s without complications E1 . [address] Sep, Oth er hammer toe(s) [place]enio [place] (acquired), rig ht foot [address] M20.41 ; Tinea u nguium B35.1 ; Other lucero mmer toe(s) (acquired ), left foot M20.42 ; Pl jose wart B07.0 ; Aris n in right foot M79.6 71 ; Pain in right toe(s) M79.674 ; Pain in left toe (s) M79.675 and Type 2 diabetes mellitu s without complications E1 07.[address] Sep, [place] [address] Mar, Tin ea unguium B35.1 ; Eugenio Becker [place] Plantar wart B0 7.0 ; [address] Other hammer toe (s) (acquired), righ t foot M20.41 ; Other h ammer toe(s) (acquired ), left foot M20.42 ; Pa in in right foot M79.6 71 ; Pain in right toe(s) M79.674 ; Pain in left toe (s) M79.675 and Type 2 diabetes mellitu s without complications E1 .[address] [place] [address] Sep, Tin ea unguium B35.1 ; Eugenio Becker [place] Plantar wart B0 7.0 ; [address] Other hammer toe (s) (acquired), righ t foot M20.41 ; Other h ammer toe(s) (acquired ), left foot M20.42 ; Pa in in right foot M79.6 71 ; Pain in right toe(s) M79.674 ; Pain in left toe (s) M79.675 and Type 2 diabetes mellitu s without complications E1 .[address] [place] [address] Mar, Carey ntar wart B07.0 ; Eugenio Becker [place] Tinea unguium B 35.1 ; [address] Other hammer toe (s) (acquired), righ t foot M20.41 ; Other h ammer toe(s) (acquired ), left foot M20.42 ; Pa in in right foot M79.6 71 ; Pain in right toe(s) M79.674 ; Pain in left toe (s) M79.675 and Type 2 diabetes mellitu s without complications E1 1.[address] [facility] Sep, Tin ea unguium B35.1 ; Eugenio Becker [place] Other hammer to e(s) [address] (acquired), righ t foot M20.41 ; Other v iral warts B07.8 ; Ot her hammer toe(s) (a cquired), left foot M20.42 ; Pain in right foot M7 9.671 ; Pain in right to e(s) M79.674 ; Pain i n left toe(s) M79.675 a nd Type 2 diabetes mellitu s without complications E1 1.[address] [facility] Mar, Cherri chomycosis 110.1 ; Eugenio Becker [place] Verruca Plantar is 078.19 [address] ; Hammer toe 735 .4 ; Pain in Limb 729.5 an d Diabetic - NIDDM 250.[address] [facility] Sep, Cherri chomycosis 110.1 ; Eugenio Becker [place] Plantar is 078.19 [address] ; Pain in Limb 7 29.5 and Diabetic - NIDDM 250.[address] [facility] Mar, Cherri chomycosis 110.1 ; Eugenio Becker [place]ca Plantar is 078.19 [address] ; Hammer toe 735 .4 ; Xerosis 706.8 ; Pain in Limb 729.5 and D iabetic - NIDDM 250.[address] [facility] Sep, Cherri chomycosis 110.1 ; [facility] [place] Verruca Plantar is 078.19 [address] ; Pain in Limb 7 29.5 and Diabetic - NIDDM 250.[address] Mar, Cherri chomycosis 110.1 ; Eugenio [facility] Eugneio [place] Pain in Limb 72 9.5 ; [address] Diabetic - NIDDM 250.00 and Verruca Plan taris 078.[address] November, Cherri chomycosis 110.1 ; Eugenio [facility] Eugenio [place] Pain in Limb 72 9.5 ; [address] Diabetic - NIDDM 250.00 ; Verruca Plantari s 078.19 and Hammer toe 7 35.4 IMMUNIZATIONS Vaccine Route Administration Date Status COVID-19 Moderna Vaccine Unknown Apr 13, 2022 Adminis tered Pneumococcal Unknown May 20, 2016 Administered Influenza Unknown Mar 21, 2022 Administered Influenza Unknown Mar 27, 2018 Administered Influenza Unknown May 20, 2016 Administered SOCIAL HISTORY Qualifiers Date Current Smoker REASON FOR REFERRAL Referring Provider First Name Felice Referring Provider Last Name Melly Referring Provider Specialty Podiatry Referring Provider email [email or web address] Referred Provider Gabriel Fajardo Reason Consult Notes Referring Provider First Name Felice Referring Provider Last Name Melly Referring Provider Specialty Podiatry Referring Provider email [email or web address] Referred Provider Gabriel Fajardo Reason Consult Notes Referring Provider First Name Felice Referring Provider Last Name Melly Referring Provider Specialty Podiatry Referring Provider email [email or web address] Referred Provider Gabriel Fajardo Reason Consult Notes Referring Provider First Name Felice Referring Provider Last Name Melly Referring Provider Specialty Podiatry Referring Provider email [email or web address] Referred Provider Gabriel Fajardo FUNCTIONAL STATUS PLAN OF CARE Activity Details Follow Up prn Reason: Future Appointment Provider Name:Felice Pickard , 2022-12-17 09:30:00 AM, [address] [place] [address] [place], [address], Referral Gabriel Fajardo Referral Consult Notes, Gabriel Fajardo Referral Consult Notes, Gabriel Fajardo Referral Consult Notes, Gabriel Fajardo Pending Test Hemoglobin A1c Future/Pending Procedure 43454-VPXBJCE NAIL, 6 [place] MOR E Future/Pending Procedure 22373-Zixi Destruction, 1-14 Future/Pending Procedure 91409-ENFO SKIN LESIONS, OVE R 4 Future/Pending Procedure 50235-MYJRISJ NAIL, 6 OR MOR E Future/Pending Procedure 07847-Cjvw Destruction, 1-14 Future/Pending Procedure 91421-DERRIMH NAIL, 6 OR MOR E Future/Pending Procedure 64235-Orii Destruction, 1-14 Future/Pending Procedure 03209-AYVNJYG NAIL, 6 OR MOR E Future/Pending Procedure 31951-Kcbv Destruction, 1-14 Future/Pending Procedure 78771-TVORJVP NAIL, 6 OR MOR E Future/Pending Procedure 04412-Ytcx Destruction, 1-14 Future/Pending Procedure 73836-BQPEMIX NAIL, 6 OR MOR E Future/Pending Procedure 82737-Eupo Destruction, 1-14 Future/Pending Procedure 74983-TOOAQSN NAIL, 6 OR MOR E Future/Pending Procedure 51878-Xdae Destruction, 1-14 Future/Pending Procedure 87909-CMJOILW NAIL, 6 OR MOR E Future/Pending Procedure 07829-Gylf Destruction, 1-14 Future/Pending Procedure 15939-RCRSDOL NAIL, 6 [place] MOR E Future/Pending Procedure 64323-Itvq Destruction, 1-14 Future/Pending Procedure 62805-YCEUELK NAIL, 6 OR MOR E Future/Pending Procedure 64675-Mhia Destruction, 1-14 Future/Pending Procedure 24595-EWEXZUS NAIL, 6 [place] MOR E Future/Pending Procedure 02567-Zajt Destruction, 1-14 Future/Pending Procedure 88918-LHZBSPD NAIL, 6 OR MOR E Future/Pending Procedure 07170-Jqtm Destruction, 1-14 Future/Pending Procedure 06741-OCOXIYS NAIL, 6 OR MOR E Future/Pending Procedure 87121-Bguf Destruction, 1-14 Future/Pending Procedure 50408-MBLBTOQ NAIL, 6 OR MOR E Future/Pending Procedure 06003-Oapa Destruction, 1-14 Future/Pending Procedure 20627-ILGDUEQ NAIL, 6 OR MOR E Future/Pending Procedure 44493-Larr Destruction, 1-14 Future/Pending Procedure 90046-FNZRWNF NAIL, 6 OR MOR E Future/Pending Procedure 17991-Ppfk Destruction, 1-14 Future/Pending Procedure 38186-OCKOEWX NAIL, 6 OR MOR E Future/Pending Procedure 57071-Rfho Destruction, - Future/Pending Procedure 61640-AYWHLPI NAIL, 6 OR MOR E Future/Pending Procedure 58308-Pcuv Destruction, 08-03 Future/Pending Procedure 58968-IQFFISX NAIL, 6 OR MOR E Future/Pending Procedure 02344-Zjmw Destruction, 08-03 Future/Pending Procedure 73701-IFJKWHC NAIL, 6 OR MOR E Future/Pending Procedure 20146-Digh Destruction, 08-03 VITAL SIGNS Height 5 ft 6 in in 2022-06-18 Weight 162 lbs 2022-06-18 BMI 26.14 kg/m2 2022-06-18 Heart Rate 99 /min 2019-10-05 Temperature 97.2 degrees Fahrenheit 2020-10-06 Blood pressure systolic 130 mm Hg 2022-06-18 Blood pressure diastolic 70 mm Hg 2022-06-18 MEDICATIONS Medication Instructions Dosage Frequency Start End Duration Statu s Date Date hydroCHLOROthiazide Acti ve Multivitamin Not-Dante ing metFORMIN HCl 500 MG Orally Twice a 1 tablet 12h 30 day(s) Active day with meals Fish Oil 1000 MG Orally Once a 1 capsule 24h 30 day( s) Active day Dulera 100-5 MCG/ACT as Act damian directed Claritin Active Extra Depth as Active Orthopedic Shoes (1 directed Pair) with Customized Heat Molded Multidensity Innersoles (3 Pair) Simvastatin 10 MG Orally Once a 1 tablet 24h 30 day( s) Active day in the evening Centrum Silver as Active directed Incruse Ellipta Active Extra Depth as 29 Nov, Active Orthopedic Shoes (1 directed 2021 Pair) with Customized Heat Molded Multidensity Innersoles (3 Pair) Claravis Not-Dante ing Spiriva HandiHaler 18 Inhalation 1 capsule 24h Not-Dante MCG Once a day ing Garlic-Vit B6-Vit Active B12-FA PROCEDURES Procedure Date Ordered Result Body Site Wart Destruction, 08-03October 05, 2019 DEBRIDE NAIL, 6 OR MORE Apr 17, 2018 DEBRIDE NAIL, OR MORE Mar 28, 2017 Wart Destruction, -November 09, 2021 DEBRIDE NAIL, OR MORE September 20, 2016 DEBRIDE NAIL, OR MORE October 17, 2017 Wart Destruction, 08-03September 20, 2016 Wart Destruction, 08-03October 06, 2020 DEBRIDE NAIL, 6 OR MORE Mar 22, 2016 Wart Destruction, 08-03October 17, 2017 DEBRIDE NAIL, 6 OR MORE September 22, 2015 DEBRIDE NAIL, OR MORE Apr 07, 2020 Wart Destruction, 08-03Mar 24, 2015 BP SCR PRFRM RCMDD DEFIND SCR INTVL September 22, 2015 DEBRIDE NAIL, 6 OR MORE September 23, 2014 DEBRIDE NAIL, OR MORE Apr 06, 2019 TRIM SKIN LESIONS, OVER 4 Jun 18, 2022 DEBRIDE NAIL, 6 OR MORE Mar 24, 2014 Wart Destruction, 08-03September 23, 2014 DEBRIDE NAIL, OR MORE Mar 25, 2013 DEBRIDE NAIL, OR MORE October 09, 2018 Wart Destruction, 08-03Mar 22, 2016 DEBRIDE NAIL, OR MORE Jun 18, 2022 DEBRIDE NAIL, OR MORE Apr 06, 2021 Wart Destruction, 08-03September 21, 2013 Wart Destruction, 08-03Mar 25, 2014 DEBRIDE NAIL, OR MORE September 21, 2013 DEBRIDE NAIL, OR MORE Mar 23, 2013 Wart Destruction, 08-03Mar 23, 2013 EVAL ON FOOT DOCUMENTED Mar 25, 2014 LOW EXTEMITY NEUR EXAM DOCUM Mar 25, 2014 LOW EXTEMITY NEUR EXAM DOCUM Mar 24, 2015 Wart Destruction, 08-03Jun 18, 2022 Wart Destruction, 08-03December 08, 2012 FOOT EXAM PERFORMED Mar 25, 2014 DEBRIDE NAIL, OR MORE December 08, 2012 Wart Destruction, 08-03September 22, 2015 FOOT EXAM PERFORMED Mar 24, 2015 EVAL ON FOOT DOCUMENTED Mar 24, 2015 Wart Destruction, 08-03Apr 07, 2020 DEBRIDE NAIL, OR MORE October 06, 2020 DEBRIDE NAIL, 6 OR MORE November 09, 2021 Wart Destruction, 08-03Mar 28, 2017 Wart Destruction, 08-03Apr 06, 2021 Wart Destruction, 08-03October 09, 2018 DEBRIDE NAIL, OR MORE October 05, 2019 Wart Destruction, 08-03Apr 06, 2019 Wart Destruction, 08-03Apr 17, 2018 RESULTS Name Result Date Reference Range Hemoglobin A1c 2018-08-06 Hemoglobin A1c 5.9 Hemoglobin A1c 2016-05-20 Hemoglobin A1c 6.7 Microalbumin, 24 hr Urine 2016-05-20 Microalbum.,U,Random 7.9 Microalbumin,mg/day REASON FOR VISIT Insurance Providers [facility] Health Member Patient Patient Patient Patient Patient Subscriber Subscriber Subscriber Group Insurance Plan Plan Plan Plan ID Relationship Address Phone Name Date of ID Name Date of No Type Insurance Insurance Insurance Coverage to Subscriber Address Phone Name Dates [employer] [phone] [employer] self [place] [id number] Shield [id number] [place] [address] Medicare National [phone] Medicare self Edward [id number] [address] [employer] [address] [place] [address] Medicare National [phone] Medicare self Edward [id number] [address] [employer] [address] [place] [address] [facility] [phone] Blue[place]ield self [place] [id number] All Others [id number] All Others [address] [address] MEDICAL (GENERAL) HISTORY Type Description Date Medical History lung disease Medical History measles Medical History chicken pox Medical History cholesterol Medical History Diabetic type ll Surgical History appendectomy 1963 Surgical History colonoscopy 01/2014 Surgical History cataract surgery 09/28/2018
[2022-07-23] MEDS: 0.9 % Sodium Chloride 1,000 ML 100 ML IVCONT (21:35)
[2022-07-23 22:08] LABS: Procalcitonin 0.09 ng/mL
[2022-07-23] MEDS: Azithromycin 500 MG in 0.9 % Sodium Chloride 250 ML 125 MG IV (22:34)
[2022-07-23] MEDS: Oseltamivir Phosphate 30 MG CAPSULE PO (22:35)
[2022-07-23] MEDS: Enoxaparin Sodium 40 MG/0.4 ML SYRINGE SUBCUT (22:35)
[2022-07-24] VITALS (11 sets, daily range): BP systolic 116–159; BP diastolic 42–78; PULSE 74–100; RESP 16–100; TEMP 36–37.2; O2SAT 90–98; BMI 24.6
--- NOTE | 2022-07-24 00:20 | PC.NURSE ---
Pt resting, pt has removed NC a few time. This RN educated pt on need for supplemental O2.
--- NOTE | 2022-07-24 02:02 | PC.NURSE ---
Pt resting quietly, no needs expressed at this time.
--- NOTE | 2022-07-24 02:53 | PC.NURSE ---
Pt sleeping respirations regular.
--- NOTE | 2022-07-24 04:10 | PC.NURSE ---
Pt arrived from the ED via stretcher, stand and pivot to hospital bed with unsteady gait. No SOB, dizziness/lightheadedness, denies the use of assistive device at home, however he is agreeable to use the Walker, walker at bedsides.He is A/O X 3, forgetful. Respiration is even and non-labored; 94 % on 4L NC. Pt has no concerns at this time, resting in bed and is aware of plan of care.
[2022-07-24] MEDS: methylPREDNISolone Sod Succ 40 MG/ML VIAL IVPUSH ×2 (05:10→17:27)
[2022-07-24 05:55] LABS: Hematocrit 33.7 % (42.0-52.0); Hemoglobin 11.3 g/dl (14.0-18.0); Mean Corpuscular HGB Conc 33.5 g/dl (31.0-36.0); Mean Corpuscular Hemoglobin 30.5 pg (27.0-33.0); Mean Corpuscular Volume 90.8 fL (80.0-98.0); Mean Platelet Volume 10.3 fL (9.4-12.4); Platelet Count 283 X10*3/uL (160-400); Red Blood Count 3.71 X10*6/uL (4.60-5.80); Red Cell Distribution Width 12.9 % (11.0-16.0); White Blood Count 12.7 X10*3/uL (4.8-10.8)
[2022-07-24 06:16] LABS: Anion Gap 13 (12-20); Blood Urea Nitrogen 32 mg/dL (9-16); Calcium 8.4 mg/dL (8.4-10.2); Carbon Dioxide 25 mmol/L (22-29); Chloride 104 mmol/L (96-108); Creatinine Clr Calc Pharmacy 38.4; Estimated Glomerular Filt Rate 48; Glucose Random 183 mg/dL (60-115); Potassium 3.8 mmol/L (3.3-5.1); Sodium 138 mmol/L (135-145)
[2022-07-24 07:35] LABS: Glucose, Whole Blood 166 mg/dL (60-115)
[2022-07-24] MEDS: Insulin Lispro 100 UNIT/ML 3 ML VIAL SUBCUT ×4 (07:40→20:24)
[2022-07-24] MEDS: amLODIPine Besylate 10 MG TABLET PO (07:41)
[2022-07-24] MEDS: 0.9 % Sodium Chloride Flush 3 ML SYRINGE IVFLUSH ×3 (07:41→20:24)
[2022-07-24] MEDS: Cyanocobalamin (Vitamin B-12) 1,000 MCG TABLET 1000 MCG PO (07:41)
[2022-07-24] MEDS: Multivitamin TABLET 1 TAB PO (07:41)
--- NOTE | 2022-07-24 09:19 | MHC.CM.PN ---
PATIENT LIVES WITH , DAUGHTER, AND GRAND CHILD HE BELIEVES HE HAS A HCP DOCUMENT AT HOME AND WILL ASK HIS WHEN SHE VISITS TODAY NO DME OR VNA SERVICES IN THE HOME. HE HAS BEEN COVID VACCINATED AND BOOSTED PATIENT HOPES TO RETURN HOME WITH NO NEED FOR SERVICES. IMM 07/24 IN CHART
[2022-07-24] MEDS: Oseltamivir Phosphate 30 MG CAPSULE PO ×2 (09:26→20:24)
[2022-07-24 11:21] LABS: Glucose, Whole Blood 178 mg/dL (60-115)
--- NOTE | 2022-07-24 13:58 | P.PNIM_ITS ---
Subjective Subjective Date of Service: 07/24/22 Interval History: cc: sob interval history: still sob, desatting when walking to bathroom Physical Exam Vital Signs: Vital Signs: Last Vital Signs Temp 98.3 F 07/24/22 07:30 Pulse 88 07/24/22 12:14 Resp 16 07/24/22 12:14 BP 134/78 07/24/22 07:30 Pulse Ox 93 07/24/22 07:30 O2 Del Method 07/24/22 07:30 O2 Flow Rate 3 07/24/22 07:30 BMI result Body Mass Index 24.6 General: AO X 3, no acute distress Resp: wheezes bilateral, no accessory muscles used CVS: S1,S2,RRR GI: soft, non tender, non distended Neuro: motor grossly intact, alert Psych: appropriate affect, appropriate insight Objective Data Active Medications Acetaminophen (Acetaminophen 325 Mg Tablet) 650 mg PO Q6H PRN PRN Reason: Pain, Mild (Pain Scale 1-3) Amlodipine Besylate (Amlodipine Besylate 10 Mg Tablet) 10 mg PO DAILY [facility]; Protocol Last Admin: 07/24/22 07:41 Dose: 10 mg Documented By: MONA Atorvastatin Calcium (Atorvastatin Calcium 20 Mg Tablet) 20 mg PO BEDTIME [facility] Albuterol Sulfate 2.5 mg/ (Ipratropium [place] 0.5 mg) 0 mg INHALE RQ4H WHILE AWAKE [facility] Last Admin: 07/24/22 12:12 Dose: 2.5 each Documented By: LEXI Cyanocobalamin (Cyanocobalamin (Vitamin B-12) 1,000 Mcg Tablet) 1,000 mcg PO DAILY [facility] Last Admin: 07/24/22 07:41 Dose: 1,000 mcg Documented By: MONA Dextrose (Dextrose 50 % 25 Gm/50 Ml Syringe) 25 gm IVPUSH Q15M PRN; Protocol PRN Reason: per Hypoglycemia Standing Ord. Docusate Sodium (Docusate Sodium 100 Mg Capsule) 100 mg PO DAILY PRN PRN Reason: Constipation Enoxaparin Sodium (Enoxaparin Sodium 40 Mg/0.4 Ml Syringe) 40 mg SUBCUT Q24H [facility] Last Admin: 07/23/22 22:35 Dose: 40 mg Documented By: CAESAR Glucose (Glucose Gel 15 Gm Gel..Gram.) 15 gm PO Q15M PRN; Protocol PRN Reason: per Hypoglycemia Standing Ord. Azithromycin 500 mg/ Sodium (Chloride) 250 mls @ 125 mls/hr IV Q24H [facility] Stop: 07/26/22 21:59 Last Infusion: 07/24/22 00:36 Dose: 0 mls/hr Documented By: LITZY-LITRANJIT Insulin Human Lispro (Insulin Lispro 100 Unit/Ml 3 Ml Vial) 0 unit SUBCUT QIDACHS [facility]; Protocol Last Admin: 07/24/22 11:42 Dose: 2 unit Documented By: MONA Methylprednisolone Sodium Succinate (Methylprednisolone Sod Succ 40 Mg/Ml Vial) 40 mg IVPUSH Q12H [facility] Last Admin: 07/24/22 05:10 Dose: 40 mg Documented By: SAI Multivitamins/Vitamin C (Multivitamin Tablet) 1 tab PO DAILY [facility] Last Admin: 07/24/22 07:41 Dose: 1 tab Documented By: MONA Ondansetron HCl (Ondansetron Hcl 4 Mg/2 Ml Vial) 4 mg IVPUSH Q8H PRN PRN Reason: Nausea and Vomiting Oseltamivir Phosphate (Oseltamivir Phosphate 30 Mg Capsule) 30 mg PO Q12H [facility] Last Admin: 07/24/22 09:26 Dose: 30 mg Documented By: MONA Sodium Chloride (0.9 % Sodium Chloride Flush 3 Ml Syringe) 3 ml IVFLUSH QSHIFT [facility] Last Admin: 07/24/22 07:41 Dose: 3 ml Documented By: MONA Valsartan (Valsartan 160 Mg Tablet) 160 mg PO DAILY PRN PRN Reason: high blood pressure Labs CBC & Chem 7: 07/24/22 05:16 07/24/22 05:16 Labs: Laboratory Results - last 24 hr 07/23/22 07/23/22 07/23/22 16:43 16:43 16:43 MCV 90.7 MCH 30.2 MCHC 33.3 RDW 12.9 Plt Count 304 MPV 10.1 Immature Gran % (Auto) 2.2 H Neut % (Auto) 75.9 H Lymph % (Auto) 9.8 L [place] % (Auto) 11.8 H Eos % (Auto) 0.1 Baso % (Auto) 0.2 Lymph # (Auto) 1.3 [place] # (Auto) 1.6 H Eos # (Auto) 0.0 Baso # (Auto) 0.0 Abs Immat Gran (auto) 0.29 H Absolute Neuts (auto) 10.0 H Absolute Nucleated RBC 0.000 Nucleated RBC % (auto) 0.0 Smear Tech's Comments VERIFIED PT 12.1 INR 1.1 VBG pH VBG pCO2 VBG pO2 VBG HCO3 VBG O2 Saturation VBG Base Excess Anion Gap 15 Estim Creat Clear Calc 36.6 Estimated GFR 46 POC Glucose Random Glucose 100 Lactic Acid Calcium 9.6 Magnesium 2.2 Total Bilirubin 1.4 H Direct Bilirubin 0.7 H AST 34 ALT 38 Alkaline Phosphatase 112 Troponin I High Sens B-Natriuretic Peptide Total Protein 6.8 Albumin 3.9 Procalcitonin Influenza Type A (PCR) Influenza Type B (PCR) RSV RNA Qual (PCR) SARS-CoV-2 RNA (RT-PCR) 07/23/22 07/23/22 07/23/22 16:43 16:43 16:43 MCV MCH MCHC RDW Plt Count MPV Immature Gran % (Auto) Neut % (Auto) Lymph % (Auto) [place] % (Auto) Eos % (Auto) Baso % (Auto) Lymph # (Auto) [place] # (Auto) Eos # (Auto) Baso # (Auto) Abs Immat Gran (auto) Absolute Neuts (auto) Absolute Nucleated RBC Nucleated RBC % (auto) Smear Tech's Comments PT INR VBG pH VBG pCO2 VBG pO2 VBG HCO3 VBG O2 Saturation VBG Base Excess Anion Gap Estim Creat Clear Calc Estimated GFR POC Glucose Random Glucose Lactic Acid Calcium Magnesium Total Bilirubin Direct Bilirubin AST ALT Alkaline Phosphatase Troponin I High Sens 19.1 B-Natriuretic Peptide 76 Total Protein Albumin Procalcitonin 0.09 Influenza Type A (PCR) Influenza Type B (PCR) RSV RNA Qual (PCR) SARS-CoV-2 RNA (RT-PCR) 07/23/22 07/23/22 07/23/22 16:52 17:03 20:09 MCV MCH MCHC RDW Plt Count MPV Immature Gran % (Auto) Neut % (Auto) Lymph % (Auto) [place] % (Auto) Eos % (Auto) Baso % (Auto) Lymph # (Auto) [place] # (Auto) Eos # (Auto) Baso # (Auto) Abs Immat Gran (auto) Absolute Neuts (auto) Absolute Nucleated RBC Nucleated RBC % (auto) Smear Tech's Comments PT INR VBG pH 7.37 VBG pCO2 31 VBG pO2 76 VBG HCO3 18 L VBG O2 Saturation 94.0 VBG Base Excess -5.4 Anion Gap Estim Creat Clear Calc Estimated GFR POC Glucose Random Glucose Lactic Acid 0.8 Calcium Magnesium Total Bilirubin Direct Bilirubin AST ALT Alkaline Phosphatase Troponin I High Sens B-Natriuretic Peptide Total Protein Albumin Procalcitonin Influenza Type A (PCR) POSITIVE A Influenza Type B (PCR) NEGATIVE RSV RNA Qual (PCR) NEGATIVE SARS-CoV-2 RNA (RT-PCR) NEGATIVE 07/24/22 07/24/22 07/24/22 05:16 05:16 07:29 MCV 90.8 MCH 30.5 MCHC 33.5 RDW 12.9 Plt Count 283 MPV 10.3 Immature Gran % (Auto) Neut % (Auto) Lymph % (Auto) [place] % (Auto) Eos % (Auto) Baso % (Auto) Lymph # (Auto) [place] # (Auto) Eos # (Auto) Baso # (Auto) Abs Immat Gran (auto) Absolute Neuts (auto) Absolute Nucleated RBC 0.000 Nucleated RBC % (auto) 0.0 Smear Tech's Comments PT INR VBG pH VBG pCO2 VBG pO2 VBG HCO3 VBG O2 Saturation VBG Base Excess Anion Gap 13 Estim Creat Clear Calc 38.4 Estimated GFR 48 POC Glucose 166 H Random Glucose 183 H Lactic Acid Calcium 8.4 D Magnesium Total Bilirubin Direct Bilirubin AST ALT Alkaline Phosphatase Troponin I High Sens B-Natriuretic Peptide Total Protein Albumin Procalcitonin Influenza Type A (PCR) Influenza Type B (PCR) RSV RNA Qual (PCR) SARS-CoV-2 RNA (RT-PCR) 07/24/22 11:17 MCV MCH MCHC RDW Plt Count MPV Immature Gran % (Auto) Neut % (Auto) Lymph % (Auto) [place] % (Auto) Eos % (Auto) Baso % (Auto) Lymph # (Auto) [place] # (Auto) Eos # (Auto) Baso # (Auto) Abs Immat Gran (auto) Absolute Neuts (auto) Absolute Nucleated RBC Nucleated RBC % (auto) Smear Tech's Comments PT INR VBG pH VBG pCO2 VBG pO2 VBG HCO3 VBG O2 Saturation VBG Base Excess Anion Gap Estim Creat Clear Calc Estimated GFR POC Glucose 178 H Random Glucose Lactic Acid Calcium Magnesium Total Bilirubin Direct Bilirubin AST ALT Alkaline Phosphatase Troponin I High Sens B-Natriuretic Peptide Total Protein Albumin Procalcitonin Influenza Type A (PCR) Influenza Type B (PCR) RSV RNA Qual (PCR) SARS-CoV-2 RNA (RT-PCR) Assessment and Plan (1) Hypoxia: Status: Acute Plan 77-year-old male with a PMH significant for?COPD, diabetes, HTN, and HLD who presented to the ED with?worsening cough and shortness of breath x3 weeks. Pt was hypoxic at O2 sat of 70 on RA on arrival and tested positive for influenza A. viral sepsis and acute hypoxic respiratory failure due to flu A complicated by copd with acute decompensation Tamiflu 30 mg b.i.d. 2/5 days, renally dosed DuoNebs Q 4 while awake? Solu-Medrol 40 mg b.i.d.? Azithromycin for COPD exacerbation wean o2 as tolerated Monitor respiratory status ELSIE vs CKD II baseline unknown HTN amldoipine HLD statin Non insulin-dependent diabetes Hold metformin SSI Full Code DVT Prophylaxis: Lovenox reason for continued hospitalization:still hypoxic Time Spent With Patient Time: Total time managing care of this patient today ____ minutes. Quality Stroke Does the patient have a stroke diagnosis?: No VTE Prior VTE?: No VTE Risk Level:: Medical - moderate - high VTE Device Contraindication: Treatment Not Indicated VTE Drug Contraindication: N/A - Med Ordered
[2022-07-24 16:31] LABS: Glucose, Whole Blood 173 mg/dL (60-115)
[2022-07-24 20:13] LABS: Glucose, Whole Blood 216 mg/dL (60-115)
[2022-07-24] MEDS: Atorvastatin Calcium 20 MG TABLET PO (20:24)
[2022-07-24] MEDS: Enoxaparin Sodium 40 MG/0.4 ML SYRINGE SUBCUT (21:06)
[2022-07-24] MEDS: Azithromycin 500 MG in 0.9 % Sodium Chloride 250 ML 125 MG IV (21:06)
[2022-07-25] VITALS (8 sets, daily range): BP systolic 107–158; BP diastolic 59–75; PULSE 55–102; RESP 16–24; TEMP 36.1–36.7; O2SAT 90–94
[2022-07-25] MEDS: methylPREDNISolone Sod Succ 40 MG/ML VIAL IVPUSH ×2 (05:00→17:18)
[2022-07-25 06:22] LABS: Hemoglobin 11.7 g/dl (14.0-18.0); Mean Corpuscular HGB Conc 33.4 g/dl (31.0-36.0); Mean Corpuscular Hemoglobin 30.4 pg (27.0-33.0); Mean Corpuscular Volume 90.9 fL (80.0-98.0); Mean Platelet Volume 10.4 fL (9.4-12.4); Platelet Count 327 X10*3/uL (160-400); Red Blood Count 3.85 X10*6/uL (4.60-5.80); White Blood Count 20.5 X10*3/uL (4.8-10.8)
[2022-07-25 07:16] LABS: Anion Gap 18 (12-20); Blood Urea Nitrogen 35 mg/dL (9-16); Calcium 8.3 mg/dL (8.4-10.2); Carbon Dioxide 18 mmol/L (22-29); Chloride 104 mmol/L (96-108); Creatinine Clr Calc Pharmacy 39.9; Estimated Glomerular Filt Rate 51; Glucose Fasting 148 mg/dL (60-99); Sodium 136 mmol/L (135-145)
[2022-07-25 07:50] LABS: Glucose, Whole Blood 159 mg/dL (60-115)
[2022-07-25] MEDS: Cyanocobalamin (Vitamin B-12) 1,000 MCG TABLET 1000 MCG PO (07:52)
[2022-07-25] MEDS: amLODIPine Besylate 10 MG TABLET PO (07:52)
[2022-07-25] MEDS: 0.9 % Sodium Chloride Flush 3 ML SYRINGE IVFLUSH ×3 (07:53→23:47)
[2022-07-25] MEDS: Insulin Lispro 100 UNIT/ML 3 ML VIAL SUBCUT ×3 (07:53→21:38)
[2022-07-25] MEDS: Multivitamin TABLET 1 TAB PO (07:53)
[2022-07-25] MEDS: Oseltamivir Phosphate 30 MG CAPSULE PO ×2 (07:58→21:37)
--- NOTE | 2022-07-25 10:24 | HO.PM.IMPN ---
Subjective Subjective Date of Service: 07/25/22 Interval History: cc: sob interval history: still sob, desatting Physical Exam Vital Signs: Vital Signs: Last Vital Signs Temp 97.6 F 07/25/22 08:00 Pulse 55 07/25/22 08:37 Resp 16 07/25/22 08:37 BP 120/62 07/25/22 08:00 Pulse Ox 93 07/25/22 08:00 O2 Del Method 07/25/22 08:00 O2 Flow Rate 4 07/25/22 02:56 BMI result Body Mass Index 24.6 General: AO X 3, no acute distress Resp: wheezes bilateral, no accessory muscles used CVS: S1,S2,RRR GI: soft, non tender, non distended Neuro: motor grossly intact, alert Psych: appropriate affect, appropriate insight Objective Data Active Medications Acetaminophen (Acetaminophen 325 Mg Tablet) 650 mg PO Q6H PRN PRN Reason: Pain, Mild (Pain Scale 1-3) Amlodipine Besylate (Amlodipine Besylate 10 Mg Tablet) 10 mg PO DAILY [facility]; Protocol Last Admin: 07/25/22 07:52 Dose: 10 mg Documented By: MONA Atorvastatin Calcium (Atorvastatin Calcium 20 Mg Tablet) 20 mg PO BEDTIME [facility] Last Admin: 07/24/22 20:24 Dose: 20 mg Documented By: SAI Albuterol Sulfate 2.5 mg/ (Ipratropium [place] 0.5 mg) 0 mg INHALE RQ4H WHILE AWAKE [facility]PL[facility] Last Admin: 07/25/22 08:35 Dose: 2.5 each Documented By: CONSUELO Cyanocobalamin (Cyanocobalamin (Vitamin B-12) 1,000 Mcg Tablet) 1,000 mcg PO DAILY [facility] Last Admin: 07/25/22 07:52 Dose: 1,000 mcg Documented By: MONA Dextrose (Dextrose 50 % 25 Gm/50 Ml Syringe) 25 gm IVPUSH Q15M PRN; Protocol PRN Reason: per Hypoglycemia Standing Ord. Docusate Sodium (Docusate Sodium 100 Mg Capsule) 100 mg PO DAILY PRN PRN Reason: Constipation Enoxaparin Sodium (Enoxaparin Sodium 40 Mg/0.4 Ml Syringe) 40 mg SUBCUT Q24H [facility] Last Admin: 07/24/22 21:06 Dose: 40 mg Documented By: SAI Glucose (Glucose Gel 15 Gm Gel..Gram.) 15 gm PO Q15M PRN; Protocol PRN Reason: per Hypoglycemia Standing Ord. Azithromycin 500 mg/ Sodium (Chloride) 250 mls @ 125 mls/hr IV Q24H [facility] Stop: 07/26/22 21:59 Last Infusion: 07/24/22 23:19 Dose: 0 mls/hr Documented By: SAI Insulin Human Lispro (Insulin Lispro 100 Unit/Ml 3 Ml Vial) 0 unit SUBCUT QIDACHS [facility]PL[facility]; Protocol Last Admin: 07/25/22 07:53 Dose: 2 unit Documented By: MONA Methylprednisolone Sodium Succinate (Methylprednisolone Sod Succ 40 Mg/Ml Vial) 40 mg IVPUSH Q12H [facility] Last Admin: 07/25/22 05:00 Dose: 40 mg Documented By: SAI Multivitamins/Vitamin C (Multivitamin Tablet) 1 tab PO DAILY [facility] Last Admin: 07/25/22 07:53 Dose: 1 tab Documented By: MONA Ondansetron HCl (Ondansetron Hcl 4 Mg/2 Ml Vial) 4 mg IVPUSH Q8H PRN PRN Reason: Nausea and Vomiting Oseltamivir Phosphate (Oseltamivir Phosphate 30 Mg Capsule) 30 mg PO Q12H [facility] Last Admin: 07/25/22 07:58 Dose: 30 mg Documented By: MNOA Sodium Chloride (0.9 % Sodium Chloride Flush 3 Ml Syringe) 3 ml IVFLUSH QSHIFT REPLACED BY [facility] Last Admin: 07/25/22 07:53 Dose: 3 ml Documented By: MONA Valsartan (Valsartan 160 Mg Tablet) 160 mg PO DAILY PRN PRN Reason: high blood pressure Labs CBC & Chem 7: 07/25/22 05:43 07/25/22 05:43 Labs: Laboratory Results - last 24 hr 07/24/22 07/24/22 07/24/22 11:17 16:18 20:04 MCV MCH MCHC RDW Plt Count MPV Absolute Nucleated RBC Nucleated RBC % (auto) Anion Gap Estim Creat Clear Calc Estimated GFR POC Glucose 178 H 173 H 216 H Fasting Glucose Calcium 07/25/22 07/25/22 07/25/22 05:43 05:43 07:32 MCV 90.9 MCH 30.4 MCHC 33.4 RDW 13.0 Plt Count 327 MPV 10.4 Absolute Nucleated RBC 0.000 Nucleated RBC % (auto) 0.0 Anion Gap 18 Estim Creat Clear Calc 39.9 Estimated GFR 51 POC Glucose 159 H Fasting Glucose 148 H Calcium 8.3 L Microbiology Microbiology Results: Microbiology 07/23/22 17:03 Blood Culture - Preliminary Blood - Venous No growth after 24 hours. 07/23/22 16:42 Blood Culture - Preliminary Blood - Venous No growth after 24 hours. Assessment and Plan (1) Hypoxia: Status: Acute Plan 77-year-old male with a PMH significant for?COPD, diabetes, HTN, and HLD who presented to the ED with?worsening cough and shortness of breath x3 weeks. Pt was hypoxic at O2 sat of 70 on RA on arrival and tested positive for influenza A. viral sepsis and acute hypoxic respiratory failure due to flu A complicated by copd with acute decompensation Tamiflu 30 mg b.i.d. 3/5 days, renally dosed DuoNebs Q 4 while awake? Solu-Medrol 40 mg b.i.d.? Azithromycin for COPD exacerbation wean o2 as tolerated Monitor respiratory status ELSIE vs CKD II baseline unknown HTN amldoipine HLD statin Non insulin-dependent diabetes Hold metformin SSI Full Code DVT Prophylaxis: Lovenox reason for continued hospitalization:still hypoxic Time Spent With Patient Time: Total time managing care of this patient today ____ minutes. Quality Stroke Does the patient have a stroke diagnosis?: No VTE Prior VTE?: No VTE Risk Level:: Medical - moderate - high VTE Device Contraindication: Treatment Not Indicated VTE Drug Contraindication: N/A - Med Ordered
[2022-07-25 11:48] LABS: Glucose, Whole Blood 239 mg/dL (60-115)
[2022-07-25 16:34] LABS: Glucose, Whole Blood 128 mg/dL (60-115)
[2022-07-25 20:20] LABS: Glucose, Whole Blood 207 mg/dL (60-115)
[2022-07-25] MEDS: Atorvastatin Calcium 20 MG TABLET PO (21:37)
[2022-07-25] MEDS: Docusate Sodium 100 MG CAPSULE PO (21:37)
[2022-07-25] MEDS: Enoxaparin Sodium 40 MG/0.4 ML SYRINGE SUBCUT (21:37)
[2022-07-25] MEDS: Azithromycin 500 MG in 0.9 % Sodium Chloride 250 ML 125 MG IV (21:38)
[2022-07-26] VITALS (7 sets, daily range): BP systolic 118–137; BP diastolic 59–74; PULSE 98–105; RESP 17–20; TEMP 36.2–36.8; O2SAT 90–94
[2022-07-26] MEDS: methylPREDNISolone Sod Succ 40 MG/ML VIAL IVPUSH ×2 (05:35→18:57)
[2022-07-26 06:36] LABS: Hematocrit 35.1 % (42.0-52.0); Hemoglobin 11.8 g/dl (14.0-18.0); Mean Corpuscular HGB Conc 33.6 g/dl (31.0-36.0); Mean Corpuscular Hemoglobin 29.9 pg (27.0-33.0); Mean Corpuscular Volume 89.1 fL (80.0-98.0); Platelet Count 369 X10*3/uL (160-400); Red Blood Count 3.94 X10*6/uL (4.60-5.80); Red Cell Distribution Width 12.9 % (11.0-16.0); White Blood Count 17.2 X10*3/uL (4.8-10.8)
[2022-07-26 07:03] LABS: Anion Gap 15 (12-20); Blood Urea Nitrogen 40 mg/dL (9-16); Calcium 8.6 mg/dL (8.4-10.2); Carbon Dioxide 23 mmol/L (22-29); Chloride 105 mmol/L (96-108); Creatinine Clr Calc Pharmacy 38.4; Estimated Glomerular Filt Rate 48; Glucose Fasting 153 mg/dL (60-99); Potassium 4.5 mmol/L (3.3-5.1); Sodium 138 mmol/L (135-145)
[2022-07-26] MEDS: 0.9 % Sodium Chloride Flush 3 ML SYRINGE IVFLUSH ×3 (07:08→23:53)
[2022-07-26 07:35] LABS: Glucose, Whole Blood 139 mg/dL (60-115)
--- NOTE | 2022-07-26 10:02 | P.PNIM_ITS ---
Subjective Subjective Date of Service: 07/26/22 Interval History: cc: sob interval history: still sob, desatting Physical Exam Vital Signs: Vital Signs: Last Vital Signs Temp 98.2 F 07/26/22 08:00 Pulse 104 H 07/26/22 08:49 Resp 20 07/26/22 08:49 BP 137/74 07/26/22 08:00 Pulse Ox 93 07/26/22 08:00 O2 Del Method 07/26/22 08:00 O2 Flow Rate 2.5 07/26/22 08:00 BMI result Body Mass Index 24.6 General: AO X 3, no acute distress Resp: wheezes bilateral, no accessory muscles used CVS: S1,S2,RRR GI: soft, non tender, non distended Neuro: motor grossly intact, alert Psych: appropriate affect, appropriate insight Objective Data Active Medications Acetaminophen (Acetaminophen 325 Mg Tablet) 650 mg PO Q6H PRN PRN Reason: Pain, Mild (Pain Scale 1-3) Amlodipine Besylate (Amlodipine Besylate 10 Mg Tablet) 10 mg PO DAILY [facility]; Protocol Last Admin: 07/25/22 07:52 Dose: 10 mg Documented By: MONA Atorvastatin Calcium (Atorvastatin Calcium 20 Mg Tablet) 20 mg PO BEDTIME [facility] Last Admin: 07/25/22 21:37 Dose: 20 mg Documented By: DEON Albuterol Sulfate 2.5 mg/ (Ipratropium [place] 0.5 mg) 0 mg INHALE RQ4H WHILE AWAKE [facility] Last Admin: 07/26/22 08:48 Dose: 1 each Documented By: ROBEL Cyanocobalamin (Cyanocobalamin (Vitamin B-12) 1,000 Mcg Tablet) 1,000 mcg PO DAILY [facility] Last Admin: 07/25/22 07:52 Dose: 1,000 mcg Documented By: MONA Dextrose (Dextrose 50 % 25 Gm/50 Ml Syringe) 25 gm IVPUSH Q15M PRN; Protocol PRN Reason: per Hypoglycemia Standing Ord. Docusate Sodium (Docusate Sodium 100 Mg Capsule) 100 mg PO DAILY PRN PRN Reason: Constipation Last Admin: 07/25/22 21:37 Dose: 100 mg Documented By: DEON Enoxaparin Sodium (Enoxaparin Sodium 40 Mg/0.4 Ml Syringe) 40 mg SUBCUT Q24H [facility] Last Admin: 07/25/22 21:37 Dose: 40 mg Documented By: DEON Glucose (Glucose Gel 15 Gm Gel..Gram.) 15 gm PO Q15M PRN; Protocol PRN Reason: per Hypoglycemia Standing Ord. Azithromycin 500 mg/ Sodium (Chloride) 250 mls @ 125 mls/hr IV Q24H [facility] Stop: 07/26/22 21:59 Last Infusion: 07/25/22 23:40 Dose: 0 mls/hr Documented By: CARLITO Insulin Human Lispro (Insulin Lispro 100 Unit/Ml 3 Ml Vial) 0 unit SUBCUT QIDACHS [facility]; Protocol Last Admin: 07/26/22 07:46 Dose: Not Given Documented By: CARLITO Non-Admin Reason: No Insulin Coverage Comments: poc 139 Methylprednisolone Sodium Succinate (Methylprednisolone Sod Succ 40 Mg/Ml Vial) 40 mg IVPUSH Q12H [facility] Last Admin: 07/26/22 05:35 Dose: 40 mg Documented By: CARLITO Multivitamins/Vitamin C (Multivitamin Tablet) 1 tab PO DAILY [facility] Last Admin: 07/25/22 07:53 Dose: 1 tab Documented By: MONA Ondansetron HCl (Ondansetron Hcl 4 Mg/2 Ml Vial) 4 mg IVPUSH Q8H PRN PRN Reason: Nausea and Vomiting Oseltamivir Phosphate (Oseltamivir Phosphate 30 Mg Capsule) 30 mg PO Q12H [facility] Last Admin: 07/25/22 21:37 Dose: 30 mg Documented By: DEON Sodium Chloride (0.9 % Sodium Chloride Flush 3 Ml Syringe) 3 ml IVFLUSH QSHIFT [facility] Last Admin: 07/26/22 07:08 Dose: 3 ml Documented By: CARLITO Valsartan (Valsartan 160 Mg Tablet) 160 mg PO DAILY PRN PRN Reason: high blood pressure Labs 07/26/22 06:22 07/26/22 06:22 Labs: Laboratory Results - last 24 hr 07/25/22 07/25/22 07/25/22 11:31 16:27 19:53 MCV MCH MCHC RDW Plt Count MPV Absolute Nucleated RBC Nucleated RBC % (auto) Anion Gap Estim Creat Clear Calc Estimated GFR POC Glucose 239 H 128 H 207 H Fasting Glucose Calcium 07/26/22 07/26/22 07/26/22 06:22 06:22 07:26 MCV 89.1 MCH 29.9 MCHC 33.6 RDW 12.9 Plt Count 369 MPV 10.0 Absolute Nucleated RBC 0.000 Nucleated RBC % (auto) 0.0 Anion Gap 15 Estim Creat Clear Calc 38.4 Estimated GFR 48 POC Glucose 139 H Fasting Glucose 153 H Calcium 8.6 Microbiology Microbiology Results: Microbiology 07/23/22 17:03 Blood Culture - Preliminary Blood - Venous No growth after 48 hours. 07/23/22 16:42 Blood Culture - Preliminary Blood - Venous No growth after 48 hours. Assessment and Plan (1) Hypoxia: Status: Acute Plan 77-year-old male with a PMH significant for?COPD, diabetes, HTN, and HLD who presented to the ED with?worsening cough and shortness of breath x3 weeks. Pt was hypoxic at O2 sat of 70 on RA on arrival and tested positive for influenza A. viral sepsis and acute hypoxic respiratory failure due to flu A complicated by copd with acute decompensation Tamiflu 30 mg b.i.d. 4/5 days, renally dosed DuoNebs Q 4 while awake? Solu-Medrol 40 mg b.i.d.? Azithromycin for COPD exacerbation wean o2 as tolerated Monitor respiratory status ELSIE vs CKD II baseline unknown HTN amldoipine HLD statin Non insulin-dependent diabetes Hold metformin SSI Full Code DVT Prophylaxis: Lovenox reason for continued hospitalization:still hypoxic on ambulation Time Spent With Patient Time: Total time managing care of this patient today ____ minutes. Quality Stroke Does the patient have a stroke diagnosis?: No VTE Prior VTE?: No VTE Risk Level:: Medical - moderate - high VTE Device Contraindication: Treatment Not Indicated VTE Drug Contraindication: N/A - Med Ordered
[2022-07-26] MEDS: Multivitamin TABLET 1 TAB PO (10:53)
[2022-07-26] MEDS: Oseltamivir Phosphate 30 MG CAPSULE PO ×2 (10:53→20:59)
[2022-07-26] MEDS: Cyanocobalamin (Vitamin B-12) 1,000 MCG TABLET 1000 MCG PO (10:53)
[2022-07-26] MEDS: amLODIPine Besylate 10 MG TABLET PO (10:54)
[2022-07-26 11:11] LABS: Glucose, Whole Blood 174 mg/dL (60-115)
[2022-07-26] MEDS: Insulin Lispro 100 UNIT/ML 3 ML VIAL SUBCUT ×3 (11:35→21:02)
[2022-07-26 16:44] LABS: Glucose, Whole Blood 193 mg/dL (60-115)
[2022-07-26 20:13] LABS: Glucose, Whole Blood 180 mg/dL (60-115)
[2022-07-26] MEDS: Atorvastatin Calcium 20 MG TABLET PO (21:00)
[2022-07-26] MEDS: Enoxaparin Sodium 40 MG/0.4 ML SYRINGE SUBCUT (21:01)
[2022-07-27] VITALS (7 sets, daily range): BP systolic 128–136; BP diastolic 60–76; PULSE 69–102; RESP 16–22; TEMP 36.6–36.9; O2SAT 87–95
[2022-07-27] MEDS: methylPREDNISolone Sod Succ 40 MG/ML VIAL IVPUSH (05:11)
[2022-07-27 07:43] LABS: Glucose, Whole Blood 157 mg/dL (60-115)
[2022-07-27] MEDS: Oseltamivir Phosphate 30 MG CAPSULE PO (08:03)
[2022-07-27] MEDS: Cyanocobalamin (Vitamin B-12) 1,000 MCG TABLET 1000 MCG PO (08:03)
[2022-07-27] MEDS: 0.9 % Sodium Chloride Flush 3 ML SYRINGE IVFLUSH (08:03)
[2022-07-27] MEDS: Multivitamin TABLET 1 TAB PO (08:03)
[2022-07-27] MEDS: Insulin Lispro 100 UNIT/ML 3 ML VIAL SUBCUT ×2 (08:03→11:43)
[2022-07-27] MEDS: amLODIPine Besylate 10 MG TABLET PO (08:03)
--- NOTE | 2022-07-27 10:23 | HO.PM.IMPN ---
Subjective Subjective Date of Service: 07/27/22 Interval History: cc: sob interval history: still sob, desatting Physical Exam Vital Signs: Vital Signs: Last Vital Signs Temp 98.2 F 07/27/22 08:00 Pulse 69 07/27/22 08:58 Resp 18 07/27/22 08:58 BP 136/76 07/27/22 08:00 Pulse Ox 92 07/27/22 08:00 O2 Del Method 07/27/22 08:00 O2 Flow Rate 2.5 07/26/22 08:00 BMI result Body Mass Index 24.6 General: AO X 3, no acute distress Resp: wheezes bilateral, no accessory muscles used CVS: S1,S2,RRR GI: soft, non tender, non distended Neuro: motor grossly intact, alert Psych: appropriate affect, appropriate insight Objective Data Active Medications Acetaminophen (Acetaminophen 325 Mg Tablet) 650 mg PO Q6H PRN PRN Reason: Pain, Mild (Pain Scale 1-3) Amlodipine Besylate (Amlodipine Besylate 10 Mg Tablet) 10 mg PO DAILY [facility]; Protocol Last Admin: 07/27/22 08:03 Dose: 10 mg Documented By: ALEX Atorvastatin Calcium (Atorvastatin Calcium 20 Mg Tablet) 20 mg PO BEDTIME [facility] Last Admin: 07/26/22 21:00 Dose: 20 mg Documented By: CAMERON Albuterol Sulfate 2.5 mg/ (Ipratropium [place] 0.5 mg) 0 mg INHALE RQ4H WHILE AWAKE [facility] Last Admin: 07/27/22 08:57 Dose: 0.5 each Documented By: DOUGLAS Cyanocobalamin (Cyanocobalamin (Vitamin B-12) 1,000 Mcg Tablet) 1,000 mcg PO DAILY [facility] Last Admin: 07/27/22 08:03 Dose: 1,000 mcg Documented By: ALEX Dextrose (Dextrose 50 % 25 Gm/50 Ml Syringe) 25 gm IVPUSH Q15M PRN; Protocol PRN Reason: per Hypoglycemia Standing Ord. Docusate Sodium (Docusate Sodium 100 Mg Capsule) 100 mg PO DAILY PRN PRN Reason: Constipation Last Admin: 07/25/22 21:37 Dose: 100 mg Documented By: DEON Enoxaparin Sodium (Enoxaparin Sodium 40 Mg/0.4 Ml Syringe) 40 mg SUBCUT Q24H [facility] Last Admin: 07/26/22 21:01 Dose: 40 mg Documented By: CAMERON Glucose (Glucose Gel 15 Gm Gel..Gram.) 15 gm PO Q15M PRN; Protocol PRN Reason: per Hypoglycemia Standing Ord. Insulin Human Lispro (Insulin Lispro 100 Unit/Ml 3 Ml Vial) 0 unit SUBCUT QIDACHS [facility]; Protocol Last Admin: 07/27/22 08:03 Dose: 2 unit Documented By: ALEX Methylprednisolone Sodium Succinate (Methylprednisolone Sod Succ 40 Mg/Ml Vial) 40 mg IVPUSH Q12H [facility] Last Admin: 07/27/22 05:11 Dose: 40 mg Documented By: LEONARDO Multivitamins/Vitamin C (Multivitamin Tablet) 1 tab PO DAILY [facility] Last Admin: 07/27/22 08:03 Dose: 1 tab Documented By: ALEX Ondansetron HCl (Ondansetron Hcl 4 Mg/2 Ml Vial) 4 mg IVPUSH Q8H PRN PRN Reason: Nausea and Vomiting Oseltamivir Phosphate (Oseltamivir Phosphate 30 Mg Capsule) 30 mg PO Q12H [facility] Last Admin: 07/27/22 08:03 Dose: 30 mg Documented By: ALXE Sodium Chloride (0.9 % Sodium Chloride Flush 3 Ml Syringe) 3 ml IVFLUSH QSHIFT [facility] Last Admin: 07/27/22 08:03 Dose: 3 ml Documented By: ALEX Valsartan (Valsartan 160 Mg Tablet) 160 mg PO DAILY PRN PRN Reason: high blood pressure Labs 07/26/22 06:22 07/26/22 06:22 Labs: Laboratory Results - last 24 hr 07/26/22 07/26/22 07/26/22 11:04 16:16 19:48 POC Glucose 174 H 193 H 180 H 07/27/22 07:30 POC Glucose 157 H Assessment and Plan (1) Hypoxia: Status: Acute Plan 77-year-old male with a PMH significant for?COPD, diabetes, HTN, and HLD who presented to the ED with?worsening cough and shortness of breath x3 weeks. Pt was hypoxic at O2 sat of 70 on RA on arrival and tested positive for influenza A. viral sepsis and acute hypoxic respiratory failure due to flu A complicated by copd with acute decompensation Tamiflu 30 mg b.i.d. 5/5 days, renally dosed DuoNebs Q 4 while awake? Solu-Medrol 40 mg b.i.d.? Azithromycin for COPD exacerbation wean o2 as tolerated Monitor respiratory status ELSIE vs CKD II baseline unknown HTN amldoipine HLD statin Non insulin-dependent diabetes Hold metformin SSI Full Code DVT Prophylaxis: Lovenox reason for continued hospitalization:still hypoxic on ambulation Time Spent With Patient Time: Total time managing care of this patient today ____ minutes. Quality Stroke Does the patient have a stroke diagnosis?: No VTE Prior VTE?: No VTE Risk Level:: Medical - moderate - high VTE Device Contraindication: Treatment Not Indicated VTE Drug Contraindication: N/A - Med Ordered
--- NOTE | 2022-07-27 10:40 | P.DS_ITS ---
DS: Providers Provider Date of Service: 07/27/22 Date of admission: 07/23/22 21:10 Primary care physician: Gabriel Fajardo MD DS: Diagnosis Discharge Diagnosis (1) Hypoxia: Status: Acute DS: Summary Hospital Course Hospital Course: from initial hpi: Pt is a 77-year-old male with a PMH significant for?COPD, diabetes, HTN, and HLD who presents to the ED with?cough and shortness of breath.? Patient states that the symptoms began approximately 3 weeks ago when he began coughing and feeling short of breath.? Symptoms initially got better but did not fully resolve and then they became worse.? 2-3 days ago patient was noted to be very weak and shaking when trying to walk.? Patient then went to his PCP who noted him to be hypoxic and sent him to the ED. Patient has not been eating or drinking much during this period of time; his notes that he has not been drinking fluids even though family has been encouraging him to.? Also complains of having headache, and he has become especially weak in the last 2 days to the fact that he has been shaking uncontrollably when trying to move.? Patient self reports a low-grade fever on and off for the past few weeks with occasional nausea.? No chills, vomiting.? No chest pain/pressure, palpitations.? No abdominal pain.? Patient is former smoker of at least 1 pack a day for many years who has recently quit. In the ED patient was afebrile but initially tachypneic at 40 and hypoxic at 70 on RA. Labs were significant for leukocytosis of 13.2, elevated BUN of 31, mild hyperbilirubinemia, elevated creatinine of 1.49 (baseline unknown), and lactic acid WNL. Patient tested positive for influenza A. CXR showed new diffuse interstitial coarsening which is nonspecific and could be associated with bronchitis, reactive airway disease, or atypical infection. Pt was treated with DuoNebs, Solu-Medrol, and Zosyn. Pt will be admitted to the hospital for treatment for hypoxia and respiratory failure in setting of COPD exacerbation and influenza infection. hospital course: Patient was admitted for viral sepsis and acute hypoxic respiratory failure due to flu a complicated by COPD with acute decompensation. He was treated with Tamiflu, Solu-Medrol, bronchodilators, azithromycin. His shortness of breath i mproved significantly he was able to be weaned off oxygen, though still requiring on ambulation. He will be discharged on 5 more days of p.o. prednisone and on home o2. Course complicated by acute kidney injury versus CKD 2, his baseline is unknown. First hypertension use continued on amlodipine. For hyperlipidemia continue on statin. For diabetes he was continued on insulin. Patient is feeling better will be discharged home. Time Spent with Patient Time attestation: Total time managing care of this patient today ____ minutes. Discharge coordination time: Greater than 30 minutes Quality: Safe Use of Opioids Does Pt have an Active Cancer Diagnosis on the Problem List?: No Quality: Stroke Does the patient have a stroke diagnosis?: No Physical Exam Vital Signs: Vital Signs: Last Vital Signs Temp 98.2 F 07/27/22 08:00 Pulse 69 07/27/22 08:58 Resp 18 07/27/22 08:58 BP 136/76 07/27/22 08:00 Pulse Ox 92 07/27/22 08:00 O2 Del Method 07/27/22 08:00 O2 Flow Rate 2.5 07/26/22 08:00 BMI result Body Mass Index 24.6 General: AO X 3, no acute distress Resp: CTA bilateral, no accessory muscles used CVS: S1,S2,RRR GI: soft, non tender, non distended Neuro: motor grossly intact, alert Psych: appropriate affect, appropriate insight DS: Data Data Completed and Pending Labs on day of discharge: Laboratory Results - last 24 hr 07/26/22 07/26/22 07/26/22 11:04 16:16 19:48 POC Glucose 174 H 193 H 180 H 07/27/22 07:30 POC Glucose 157 H Preliminary micro results at discharge 07/23/22 17:03 Blood Culture - Preliminary Blood - Venous No growth after 48 hours. 07/23/22 16:42 Blood Culture - Preliminary Blood - Venous No growth after 48 hours. Discharge Plan Discharge Anticipated Discharge Date/Time: 07/27/22 10:15 Patient Disposition: Home, Self-Care Discharge Diagnosis: flu Referrals: Gabriel Fajardo MD [Primary Care Provider] - 1 Week Discharge Medications: New prednisone 20 mg tablet 40 mg PO DAILY Qty: 10 0RF Continued multivitamin Tablet 1 tab PO DAILY ketoconazole 2 % shampoo 1 appl TOPICAL MO simvastatin 10 mg tablet 1 tab PO BEDTIME cyanocobalamin (vitamin B-12) 1,000 mcg Tablet 1,000 mcg PO DAILY garlic 1,000 mg Capsule 2,000 mg PO DAILY amlodipine 10 mg tablet 1 tab PO DAILY albuterol sulfate 90 mcg/actuation HFA aerosol inhaler 2 puff inhalation Q6H PRN (Reason: wheezing) metformin 500 mg tablet extended release 24 hr 2 tab PO DAILY@1700 olmesartan 40 mg tablet 1 tab PO DAILY PRN (Reason: high blood pressure) hydrochlorothiazide 12.5 mg tablet 1 tab PO DAILY omega 9-ytu-ueo-fish oil [Fish Oil] 1,000 mg (120 mg-180 mg) Capsule 1 cap PO DAILY Incruse Ellipta 62.5 mcg/actuation blister with device 1 puff inhalation DAILY Discharge Orders: Discharge Order (Routine); Ordered 07/27/22 Ordered By: David Glez Diet: Advance to usual diet Activity on Discharge: As tolerated Stand Alone Forms: Patient Portal Discharge page Care Plan Goals: recovery Health Concerns: flu Plan of Treatment: prednisone Assessment: see above
[2022-07-27 11:26] LABS: Glucose, Whole Blood 177 mg/dL (60-115)
--- NOTE | 2022-07-27 11:45 | MHC.CM.PN ---
Addendum entered by Karen Barbour 07/28/22 08:25: [facility] ADDED TO DC DUE TO PT QUALIFYING FOR NEW HOME [facility] WILL PROVIDE SERVICES PT AWARE [facility] WILL CONTACT HIM DIRECTLY Original Note: PT TO DC HOME TODAY WITH NO SERVICES FAMILY TO TRANSPORT
--- NOTE | 2022-07-27 16:24 | P.F2F_ITS ---
Service Date Service Date: 07/27/22 Encounter Date of encounter: 07/27/22 Reasons for Services Signs and symptoms assessed: weakness, new o2 Reason for senior care: medication management, medication treatment and teach disease management Homebound: Leaving the home is medically contraindicated at this time without the asist of a device and/or another person due th the listed conditions above and below. Reason homebound: unsteady gait / fall risk Certification: Based on the above findings, I certify that this patient is confined to the home and needs intermittent senior care care, physical therapy and/or speech therapy, or continues to need occupational therapy. The patient is under my care, and I have initiated the establishment of the plan of care. The patient will be followed by a physician who will periodically review the plan of care. Time Spent With Patient Time: Total time managing care of this patient today ____ minutes.
== END 2022-07-27 16:44 | disposition home health service (06) | DRG 871 ==
LOC: HO.ED 20:09 → HO.EDOVER 21:20 → HO.S3 07-24 02:12
PROVIDERS: Physician Assistant; Admitting Provider Student in an Organized Health Care Education/Training Program; Emergency Provider Student in an Organized Health Care Education/Training Program; PCP Internal Medicine; Visit Provider Internal Medicine
DX: A41.89 Other specified sepsis (principal); J96.01 Acute respiratory failure with hypoxia; J44.1 Chronic obstructive pulmonary disease with (acute) exacerbation; N17.9 Acute kidney failure, unspecified; J10.1 Influenza due to other identified influenza virus with other respiratory manifestations; E78.5 Hyperlipidemia, unspecified; I12.9 Hypertensive chronic kidney disease with stage 1 through stage 4 chronic kidney disease, or unspecified chronic kidney disease; N18.2 Chronic kidney disease, stage 2 (mild); E11.22 Type 2 diabetes mellitus with diabetic chronic kidney disease; Z87.891 Personal history of nicotine dependence; Z79.84 Long term (current) use of oral hypoglycemic drugs; Z79.899 Other long term (current) drug therapy
CPT/HCPCS: 0241U; 36415; 71045; 80048; 80076; 82803; 82947; 83605; 83735; 83880; 84145; 84484; 85025; 85027; 85610; 87040; 93005; 94640; 99285; J0456; J1650; J2543; J2920; J2930; J3475

== ENCOUNTER 2022-08-06 09:55 | Outpatient (REF) | payer MEDICARE, SELFPAY ==
--- NOTE | ~2022-08-06 | XR_ITS ---
EXAMINATION: XR CHEST CLINICAL INFORMATION: Shortness of breath. COMPARISON: July 23, 2022. TECHNIQUE: 2 views of the chest were obtained. XR/XR chest 2V FINDINGS/IMPRESSION: Question mildly increased, predominantly perihilar markings, similar to improved compared with July 23, 2022. No focal infiltrate, effusion, or pneumothorax is seen. The heart appears normal in size. The aorta is mildly atherosclerotic.
--- NOTE | ~2022-08-06 | MR_ITS ---
EXAMINATION: MR head/brain wo con CLINICAL INFORMATION: Memory loss COMPARISON: MRI brain 03/28/2020. TECHNIQUE: Routine unenhanced MRI of the brain. FINDINGS: Moderate-marked diffuse commensurate prominence of ventricles and sulci is present unchanged compared with 03/28/2020. No disproportionate prominence of the temporal horns of the lateral ventricles is noted to specifically suggest disproportionate hippocampal volume loss. Moderate periventricular and scattered subcortical white matter patchy T2 hyperintensities are visualized without gross change compared with 03/28/2020. Susceptibility weighted images reveal no evidence of acute or chronic hemorrhage within the brain parenchyma. The craniocervical junction cerebellar tonsils are normal in configuration with incidental note made of mild pannus formation along the posterior dens. Partial visualization of C4-C5 chronic appearing endplate discogenic marrow changes. No suspicious marrow abnormalities identified. Grossly normal flow-related signal intensity within the visualized major intracranial vessels and dural sinuses. Bilateral ocular lens extractions. Mild, physiologic mucosal thickening and/or retained secretions within the left maxillary sinus. No mastoid or middle ear cavity effusions. MR/MR head/brain wo con IMPRESSION: *No change compared with 03/28/2020. *Diffuse parenchymal volume loss of the brain and mild chronic microangiopathic ischemic changes. *No qualitative evidence of disproportionate hippocampal volume loss to specifically suggest Alzheimer's type neurodegeneration.
== END 2022-08-06 09:56 | disposition home or self-care (01) ==
LOC: HO.MRI 09:55
PROVIDERS: PCP Internal Medicine; Visit Provider Internal Medicine
DX: R41.3 Other amnesia (principal); R06.02 Shortness of breath; R05.9 Cough, unspecified
CPT/HCPCS: 70551; 71046

== ENCOUNTER 2023-01-20 10:34 | Outpatient (REF) | payer MEDICARE, SELFPAY | END 2023-01-20 10:35 | disposition home or self-care (01) | LOC: HO.LAB 10:34 | PROVIDERS: PCP Internal Medicine; Visit Provider Psychiatry & Neurology Neurology | DX: G31.84 Mild cognitive impairment of uncertain or unknown etiology (principal); G31.09 Other frontotemporal neurocognitive disorder | CPT/HCPCS: 36415; 80048; 82607; 82746; 84436; 84443 ==

== ENCOUNTER 2023-08-11 09:28 | Outpatient (REF) | payer MEDICARE, SELFPAY ==
--- NOTE | ~2023-08-11 | XR_ITS ---
EXAMINATION: XR CHEST CLINICAL INFORMATION: Cough COMPARISON: 08/06/2022 TECHNIQUE: 2 views of the chest were obtained. FINDINGS: No significant abnormality is noted involving the heart, lungs, mediastinum, bony thorax or soft tissues. XR/XR chest 2V IMPRESSION: Unremarkable examination.
== END 2023-08-11 09:29 | disposition home or self-care (01) ==
LOC: HO.HMGCX 09:28
PROVIDERS: PCP Internal Medicine; Visit Provider Internal Medicine
DX: R05.1 Acute cough (principal); J44.9 Chronic obstructive pulmonary disease, unspecified; R06.09 Other forms of dyspnea
CPT/HCPCS: 71046

== ENCOUNTER 2023-09-16 08:36 | Outpatient (REF) | payer MEDICARE, SELFPAY ==
--- NOTE | ~2023-09-16 | US_ITS ---
EXAMINATION: US ABDOMEN LIMITED CLINICAL INFORMATION: Elevated LFTs. COMPARISON: CT abdomen and pelvis 04/24/2017. TECHNIQUE: Real-time imaging of the right upper quadrant abdominal viscera. FINDINGS: PANCREAS: LIVER: Normal. The liver is normal in size. The liver contour is normal. Parenchymal echogenicity is normal. No focal hepatic lesion. There is no intrahepatic biliary duct dilatation seen. GALLBLADDER: Normal. The gallbladder is physiologically distended without evidence of stones, sludge, polyps, wall thickening or pericholecystic fluid. COMMON BILE DUCT: Normal in caliber measuring 0.3 cm in diameter. RIGHT KIDNEY: No hydronephrosis or renal calculi. The kidney measures 11.2 cm in maximum dimension. FREE FLUID: None. US/US abdomen limited IMPRESSION:
[2023-09-16 08:54] LABS: MANUAL DIFF FLAG NO
[2023-09-16 09:29] LABS: Basophils Percent Auto 0.4 % (0-2); Eosinophils Absolute Auto 0.2 X10*3/uL (0.0-0.4); Eosinophils Percent Auto 2.9 % (0-4); Hematocrit 39.5 % (42.0-52.0); Hemoglobin 13.2 g/dl (14.0-18.0); Imm Gran Abs Auto 0.13 X10*3/uL (0.00-0.03); Imm Gran Pct Auto 1.7 % (0.0-0.4); Lymphocytes Percent Auto 39.4 % (20-40); Mean Corpuscular HGB Conc 33.4 g/dl (31.0-36.0); Mean Corpuscular Hemoglobin 30.6 pg (27.0-33.0); Mean Corpuscular Volume 91.6 fL (80.0-98.0); Mean Platelet Volume 9.9 fL (9.4-12.4); Monocytes Absolute Auto 0.7 X10*3/uL (0.1-1.2); Monocytes Percent Auto 9.5 % (2-11); Neutrophils Absolute Auto 3.6 x10*3/uL (2.0-8.3); Neutrophils Percent Auto 46.1 % (45-73); Platelet Count 270 X10*3/uL (160-400); Red Blood Count 4.31 X10*6/uL (4.60-5.80); Red Cell Distribution Width 12.9 % (11.0-16.0); White Blood Count 7.7 X10*3/uL (4.8-10.8)
[2023-09-16 09:43] LABS: Estimated Average Glucose 140 mg/dL; Hemoglobin A1c % 6.5 % (<6.0)
[2023-09-16 10:47] LABS: Alanine Aminotransferase 50 U/L (0-40); Albumin Level 4.2 g/dL (3.5-5.0); Alkaline Phosphatase 102 U/L (39-117); Anion Gap 13 (12-20); Aspartate Amino Transferase 46 U/L (5-37); Bilirubin Total 0.6 mg/dL (0.0-1.0); Blood Urea Nitrogen 21 mg/dL (9-16); Calcium 9.3 mg/dL (8.4-10.2); Carbon Dioxide 28 mmol/L (22-29); Chloride 108 mmol/L (96-108); Estimated Glomerular Filt Rate 35; Glucose Random 143 mg/dL (60-115); Potassium 4.2 mmol/L (3.3-5.1); Sodium 145 mmol/L (135-145); Total Protein 6.6 g/dL (6.5-8.0)
== END 2023-09-16 08:37 | disposition home or self-care (01) ==
LOC: HO.US 08:36
PROVIDERS: PCP Internal Medicine; Visit Provider Internal Medicine
DX: R94.5 Abnormal results of liver function studies (principal); E11.29 Type 2 diabetes mellitus with other diabetic kidney complication; R80.9 Proteinuria, unspecified
CPT/HCPCS: 36415; 76705; 80053; 83036; 85025

== ENCOUNTER 2024-11-23 11:07 | Outpatient (AMB) | payer MEDICARE, SELFPAY ==
--- NOTE | 2024-11-23 11:21 | MHC.OFFVIS ---
Vital Signs 11/23/24 11:31 Height 5 ft 6 in Weight 161 lb BMI 26.0 BP 162/78 H Blood Pressure Location Rt brachial Position Sitting Pulse 72 Pulse Source Pulse Oximeter Pulse Oximetry (%) 91 L Oxygen Delivery Method Room Air Intake Visit Reasons: Colonoscopy Screening Intake Note: NEW PATIENT for repeat colo screening. Hx of colo w/ polypectomy (TA). Chief Complaint; Pt denies any GI sx or concerns at this time. Pt reports last colo was roughly 5 years ago via [facility]. Teletray Operator Required: No Accompanied by: Spouse Allergies No Known Allergies [No Known Allergies*] Allergy (Unverified 11/23/24 11:22) HPI HPI Colonoscopy Screening: Details: 79 year old? male with past medical history of hypertension, diabetes, early Alzheimer, CKD, COPD is here today for pre colonoscopy screening.? Patient was sent to us by his PCP.? Last colonoscopy over 5 years ago at [facility]. One tubular adenoma found. Patient denies any gastrointestinal symptoms in the past or at present.? Denies any personal or family history of gastrointestinal disease, colon polyps, or CRC.? Denies history of difficulty with sedation or anesthesia in the past.? History of admission for hypoxia. Patient was diagnosed with COPD and is following with Dr. Daniels, phone [phone]. Negative for history of sleep apnea.? Denies any history of cardiac, renal, pulmonary, or hepatic disease.?? No history of infectious? diseases like hepatitis A, B, C, HIV or tuberculosis.? Patient is not on any anticoagulation [facility] Medical History (Updated 11/23/24 @ 20:48 by Shawna Sands [facility]) Early onset Alzheimer's dementia COPD (chronic obstructive pulmonary disease) CKD (chronic kidney disease) Diabetes mellitus HTN (hypertension) Surgical History Hx of colonoscopy Cataract Hx of appendectomy Social History Household Members: Family Housing: House Patient Tobacco Use Status: Former Tobacco user Tobacco use type: Cigarette Cigarettes Per Day: 1 Years Smoked: >50 service: No Current occupational status: retired Review of Systems Const Denies weight gain and Denies weight loss ENT Reports no additional complaints, Denies dysphagia and Denies odynophagia Card Reports no additional complaints Resp Reports no additional complaints GI Denies abdominal pain, Denies belching, Denies melena, Denies bloating, Denies change in bowel habits, Denies dysphagia, Denies excessive flatus, Denies dyspepsia, Denies heartburn, Denies diarrhea, Denies loose stools, Denies nausea, Denies odynophagia and Denies vomiting Reports no additional complaints Musc Reports no additional complaints Neuro Reports no additional complaints and Reports memory loss (Forgetfulness) Psych Reports no additional complaints and Reports memory loss (Forgetfulness) Endo Reports no additional complaints Physical Exam Vital Signs: Last Vital Signs Pulse 72 11/23/24 11:31 BP 162/78 H 11/23/24 11:31 Pulse Ox 91 L 11/23/24 11:31 Oxygen Delivery Method Room Air 11/23/24 11:31 BMI result Body Mass Index 26.0 Assessment & Plan Assessment & Plan (1) Screen for colon cancer: Code(s): Z12.11 - Encounter for screening for malignant neoplasm of colon Plan Patient denies any GI, cardiac or respiratory symptoms.? Denies any issues with anesthesia in the past.? Denies any history of sleep apnea.? No history infectious diseases in the past or present.? Not on any anticoagulation therapy.? No family or personal history of colon cancer.? Patient denies melena, hematochezia, unintentional weight loss or ribbon like stools.? Discussed at length the pre-procedure,? prep, diet & medications as well as what to expect prior, during and after the procedure.?? Patient is seeing his traffic survey technician in February. Dr. Daniels phone #[phone]. Please call to see if he can go for procedure. Patient has a history of hypoxia due to his COPD. Stressed the importance of good bowel prep.? Recommended the use of Vaseline or Calmoseptine OTC & baby wipes with bowel movements to promote comfort.? ?Patient verbalizes understanding and agrees to plan of care.? He was given the opportunity to ask questions and all questions answered.? We will see him after the procedure.? Medications: New bisacodyl (Dulcolax (bisacodyl)) take 4 tabs at noon the day before your colonoscopy 20 mg (4 x 5 mg) PO ONCE 1 day 4 tabs 0RF Z12.11 - Encounter for screening for malignant neoplasm of colon polyethylene glycol 3350 (Miralax) As directed by gastroenterology department at [facility] 238 grams PO ONCE 238 grams 0RF Z12.11 - Encounter for screening for malignant neoplasm of colon bisacodyl (Dulcolax (bisacodyl)) 10 mg (2 x 5 mg) PO BEDTIME 180 tabs 4RF Coding Level of Care Code New Pt Level 3 (42723) Diagnoses Screen for colon cancer Z12.11 Time Spent (min) 40 Comment 30 minutes spent with patient and additional 10 minutes spent reviewing his records
[2024-11-23 11:31] VITALS: BP 162/78; PULSE 72; O2SAT 91; BMI 26.0
--- OUTSIDE RECORDS SUMMARY | 2024-11-23 12:57 | XMS_ITS | Patient Health Record ---
[facility] Address [address] [place] [address] Care Team Providers Care Yarn Examiner Name Role Phone Gabriel Fajardo MD Primary Care Provider Unavaila Felice Bullard Unavailable [phone] Allergies No Known Allergies Results Component Value Reference Range Notes HEMOGLOBIN A1C (GLYCOHEMOGLO BIN) Reviewed date:09/03/2024 11:33:14 AM Interpretation: Performing Lab: Notes/Report: HEMOGLOBIN A1C % (HH) 7.0 Reason For Referral No Information Medications Medication SIG (Take, Route, Frequency, Duration) Notes Start Date End Date Status hydroCHLOROthiazide Active Garlic-Vit B6-Vit B12-FA Active Incruse Ellipta Acti ve Simvastatin 10 MG 1 tablet in the evening Orally Once a day for 30 day(s) Active metFORMIN HCl 500 MG 1 tablet with meals Orally Twice a day for 30 day(s) Active Donezepil HCl-10 mg Active Claravis Not-Taking Extra Depth Orthopedic Shoes, (1) Pair With (3) Pair Custom Heat Molded Multidensity Innersoles Dx: NIDDM/PVD(E11.51), Hammertoe Foot Deformity(M20.41,M20. 42), Preulcerative Skin Lesion(s)(L85.1) Wear Daily for 365 days Active Centrum Silver as directed Orally Active Spiriva HandiHaler 18 MCG 1 capsule Inha lation Once a day Not-Taking Dulera 100-5 MCG/ACT as directed Inhalation Active Multivitamin Not-Dante ing Fish Oil 1000 MG 1 capsule Orally Onc e a day for 30 day(s) Active Claritin Active Immunizations Vaccine Route Administration Date Status Comme nts COVID-19 Moderna Vaccine Unknown 04/13/2022 Administere d 1st 09/20/20 2nd 10/11/202020 Influenza Unknown 05/20/2016 Administered Influenza Unknown 03/27/2018 Administered Influenza Unknown 03/21/2022 Administered Pneumococcal Unknown 05/20/2016 Administered Social History Tobacco Use: Social History Observation Description Date Details (start date - stop date) Never Smoker NA - NA Tobacco use other than smoking: Question Answer Notes Are you an other tobacco user? No Tobacco Control (Standard) Question Answer Notes Tobacco use: Nonsmoker Additional Findings: Tobacco non-user Current no nsmoker AUDIT-C (Standard) Question Answer Notes Did you have a drink containing alcohol in the p ast year? No Points 0 Interpretation Negative Problems Problem Type SNOMED Code ICD Code Onset Dates Problem Status W/U Status Risk Notes Problem Acquired hammer toe of right foot (1365546240737 105) Other hammer toe(s) (acquired), right foot (M20.41) Active confirmed Response to treatment,I mprovement Problem Type 2 diabetes mellitus with peripheral angiopathy (773342346) Type 2 diabetes mellitus with diabetic peripheral angiopathy without gangrene (E11.51) Active confirmed Problem Acquired hammer toe of left foot (7315375936418 103) Other hammer toe(s) (acquired), left foot (M20.42) Active confirmed Response to treatment,I mprovement Problem Plantar wart (64092963) Plantar wart (B07.0) Active confirmed Chronic Vital Signs Blood pressure diastolic 70 mm Hg 09/03/2024 Height 5 ft 6 in in 09/03/2024 Blood pressure systolic 130 mm Hg 09/03/2024 Weight 170 lbs 09/03/2024 BMI 27.44 kg/m2 09/03/2024 Procedures Procedure Date Ordered Date Performed Result Body Sit e 55331-NWVOUPT NAIL, 6 OR MORE 02/24/2024 N/A 08634-Yajx Destruction, 1-14 02/24/2024 N/A 56394-MZDR SKIN LESIONS, OVER 4 02/24/2024 N/A 39936-Wqyd. Subungual Hematoma 02/24/2024 N/A 67051-AVOMAGH NAIL, 6 OR MORE 09/03/2024 N/A 18832-Amdl Destruction, 1-09/03/2024 N/A 81398-WCIX SKIN LESIONS, OVER 4 09/03/2024 N/A Encounters Encounter Location Date Provider [facility] [address] 02/24/2024 Felice Pickard Type 2 diabetes mellitus with diabetic peripheral angiopathy without gangrene E11.51 ; Plantar wart B07.0 ; Tinea unguium B35.1 ; Pain in right toe(s) M79.674 ; Pain in left toe(s) M79.675 ; Right foot pain M79.671 ; Other hammer toe(s) (acquired), right foot M20.41 ; Other hammer toe(s) (acquired), left foot M20.42 and Subungual hematoma of left foot, initial encounter S90.222A [facility] [address] [address] 09/03/2024 Felice Pickard Type 2 diabetes mellitus with diabetic peripheral angiopathy without gangrene E11.51 ; Plantar wart B07.0 ; Tinea unguium B35.1 ; Pain in right toe(s) M79.674 ; Pain in left toe(s) M79.675 ; Other hammer toe(s) (acquired), right foot M20.41 ; Other hammer toe(s) (acquired), left foot M20.42 and Pain in left foot M79.672 Assessments Encounter Date Diagnosis (ICD Code) Assessment Notes Treatment Notes Treatment Clinical Notes Section Notes 02/24/2024 Type 2 diabetes mellitus with diabetic peripheral angiopathy without gangrene (ICD-10 - E11.51) 02/24/2024 Plantar wart (ICD-10 - B07.0) 09/03/2024 Type 2 diabetes mellitus with diabetic peripheral angiopathy without gangrene (ICD-10 - E11.51) 09/03/2024 Plantar wart (ICD-10 - B07.0) 09/03/2024 Tinea unguium (ICD-10 - B35.1) 02/24/2024 Tinea unguium (ICD-10 - B35.1) 02/24/2024 Pain in right toe(s) (ICD-10 - M79.674) 09/03/2024 Pain in right toe(s) (ICD-10 - M79.674) 09/03/2024 Pain in left toe(s) (ICD-10 - M79.675) 02/24/2024 Pain in left toe(s) (ICD-10 - M79.675) 02/24/2024 Right foot pain (ICD-10 - M79.671) 09/03/2024 Other hammer toe(s) (acquired), right foot (ICD-10 - M20.41) Patient Educated with: DIABETIC FOOT CARE INSTRUCTIONS.p df (DIABETIC FOOT CARE INSTRUCTIONS.p df) 09/03/2024 Other hammer toe(s) (acquired), left foot (ICD-10 - M20.42) 02/24/2024 Other hammer toe(s) (acquired), right foot (ICD-10 - M20.41) Patient Educated with: DIABETIC FOOT CARE INSTRUCTIONS.p df (DIABETIC FOOT CARE INSTRUCTIONS.p df) 02/24/2024 Other hammer toe(s) (acquired), left foot (ICD-10 - M20.42) 09/03/2024 Pain in left foot (ICD-10 - M79.672) 02/24/2024 Subungual hematoma of left foot, initial encounter (ICD-10 - S90.222A) Plan Of Treatment Pending Test Test Name Order Date Hemoglobin A1c 03/24/2015 37893-PSEILWG NAIL, 6 OR MORE 09/22/2015 38700-AWMOZAI NAIL, 6 OR MORE 03/24/2015 44086-ADVQMHP NAIL, 6 OR MORE 03/22/2016 59354-XTUDION NAIL, 6 OR MORE 09/20/2016 06682-AYCJAWF NAIL, 6 OR MORE 12/08/2012 53101-KCHHGFI NAIL, 6 OR MORE 03/23/2013 76183-YLRKCAP NAIL, 6 OR MORE 09/21/2013 82957-URAZVKV NAIL, 6 OR MORE 03/25/2014 94281-TBXDLBJ NAIL, 6 OR MORE 09/23/2014 98672-ZSNXWPX NAIL, 6 OR MORE 03/28/2017 32324-JIALQQZ NAIL, 6 OR MORE 10/17/2017 72500-ZOELXBT NAIL, 6 OR MORE 04/17/2018 38840-QWSEPLL NAIL, 6 OR MORE 10/09/2018 50421-XLBUPTD NAIL, 6 OR MORE 04/06/2019 67407-PPSYQGS NAIL, 6 OR MORE 10/05/2019 19547-MGMNOTI NAIL, 6 OR MORE 04/07/2020 06972-KPXXIUH NAIL, 6 OR MORE 10/06/2020 99353-XEEAVSO NAIL, 6 OR MORE 04/06/2021 03027-LTZOXKE NAIL, 6 OR MORE 11/09/2021 90957-VYORYIS NAIL, 6 OR MORE 06/18/2022 71607-BXAYIDJ NAIL, 6 OR MORE 12/17/2022 87866-GTODFDX NAIL, 6 OR MORE 06/17/2023 09210-RDPSEEQ NAIL, 6 OR MORE 02/24/2024 81424-GQTQIYI NAIL, 6 OR MORE 09/03/2024 12874-Xkyq Destruction, -09/03/2024 29435-Ehrn Destruction, 08-0312/08/2012 74755-Irne Destruction, 08-0302/24/2024 58734-Tomp Destruction, 08-0306/17/2023 26277-Jokl Destruction, 08-0312/17/2022 31409-Knkk Destruction, 08-0306/18/2022 14525-Lkzc Destruction, 08-0311/09/2021 55091-Luro Destruction, 08-0304/06/2021 30707-Ttyc Destruction, 08-0310/06/2020 02763-Lilv Destruction, 08-0304/07/2020 45029-Mbvz Destruction, 08-0310/05/2019 30007-Kxuh Destruction, 08-0304/06/2019 07042-Tqkt Destruction, 08-0310/09/2018 87306-Jhel Destruction, 08-0304/17/2018 08068-Pbhl Destruction, 08-0310/17/2017 00137-Bycj Destruction, 08-0309/23/2014 63998-Kjzb Destruction, 08-0303/25/2014 94810-Aefl Destruction, 08-0309/21/2013 98706-Zhed Destruction, 08-0303/23/2013 97443-Dedt Destruction, 1-14 09/20/2016 18352-Oiym Destruction, -03/28/2017 34486-Nsdx Destruction, -03/22/2016 44751-Ekgb Destruction, -03/24/2015 67349-Velx Destruction, -09/22/2015 12729-NZYK SKIN LESIONS, OVER 4 06/18/20 22 88464-ZDYM SKIN LESIONS, OVER 4 12/18/19 23 68624-DJUF SKIN LESIONS, OVER 4 06/17/20 23 52845-KKPR SKIN LESIONS, OVER 4 02/24/20 24 18559-BVRI SKIN LESIONS, OVER 4 09/03/19 25 14504-Pedo. Subungual Hematoma 4 Next Appt Details Provider Name:Felice Kwame Pickard , 12/10/2024 10:00:00 AM, [address] [place], [address], Insurance Providers Payer Name Payer Address Payer Phone Subscriber Number Group Number Insured Name Patient Relationship to Insured Coverage Start Date Coverage End Date Medicare National [employer] [address] [facility] [place] [address] [id number] Justin Barclay Self - patient is the insured 3 [employer] [address] [place] [address] [id number] Justin Barclay Self - patient is the insured Medical (General) History Medical History History ICD Code lung disease measles chicken pox cholesterol Diabetic type ll Surgical History Surgery Date(Month/Year) appendectomy 1963 colonoscopy 01/2014 cataract surgery 09/28/2018
--- OUTSIDE RECORDS SUMMARY | 2024-11-23 12:57 | XMS_ITS | Clinical Summary ---
Author Organization [facility] Address [address] [address] Phone Care Team Providers Care Client Engagement Specialist Name Role Phone Gabriel Fajardo MD Primary Care Provider [phone] Allergies No known active allergies Medications amLODIPine (NORVASC) 10 MG tablet Take 10 mg by mouth 1 (one) time each day Active olmesartan (BENICAR) 40 MG tablet Take 40 mg by mouth 1 (one) time each day Active hydroCHLOROthia zide 12.5 MG tablet Take 12.5 mg by mouth 1 (one) time each day Active metFORMIN (GLUCOPHAGE) 500 MG tablet Take 500 mg by mouth in the morning and 500 mg in the evening. Take with meals. Active simvastatin (ZOCOR) 10 MG tablet Take 10 mg by mouth 1 (one) time each day 03/06/2023 Active donepezil (ARICEPT) 10 MG tablet Take 10 mg by mouth in the morning. Active tiotropium (Spiriva HandiHaler) 18 MCG per inhalation capsule Place 1 capsule into inhaler and inhale 1 (one) time each day Active albuterol HFA (PROVENTIL HFA;VENTOLIN HFA) 108 (90 Base) MCG/ACT inhaler Inhale 2 puffs every 6 (six) hours if needed 08/11/2023 Active Trelegy Ellipta 100-62.5-25 MCG/ACT aerosol powder Inhale 1 puff 1 (one) time each day Active Diggs-3 Fatty Acids 1400 MG capsule Take 1 capsule by mouth 1 (one) time each day Active GARLIC PO Take 2,000 mg by mouth in the morning. Active cyanocobalamin 500 MCG tablet Take 1 tablet by mouth 1 (one) time each day Active Multiple Vitamin (MULTIVITAMIN ADULT PO) Take 1 tablet by mouth 1 (one) time each day Active memantine (NAMENDA) 10 MG tablet Take 1 tablet by mouth in the morning and 1 tablet in the evening. 05/02/2023 Active sertraline (ZOLOFT) 25 MG tablet 08/09/2024 Active Active Problems Problem Noted Date Diagnosed Date Cyst of kidney 04/11/2024 Proteinuria, not otherwise specified 04/11/2024 Nephrolithiasis 04/11/2024 Stage 3a chronic kidney disease 08/18/2023 Hypertension 08/18/2023 Diabetes mellitus, not otherwise specified 08/18 Dyslipidemia 08/18/2023 Family History Medical History Relation Comments Autosomal Dominant Polycystic Kidney Disease Neg Hx Kidney disease Neg Hx Social History Tobacco Use Types Packs/Day Years Used Date Smoking Tobacco: Former Cigarettes Smokeless Tobacco: Former Tobacco Cessation:Counseling Given: Not Answered Sex and Gender Information Value Date Recorded Sex Assigned at Not on file Legal Sex Male 2:35 PM EST Gender Identity Not on file Sexual Orientation Not on file Last Filed Vital Signs Vital Sign Reading Time Taken Comments Blood Pressure 132/50 08/11/2024 10:55 AM EST Pulse 78 08/11/2024 10:55 AM EST Temperature - - Respiratory Rate - - Oxygen Saturation 94% 04/13/2024 10:11 AM EDT Inhaled Oxygen Concentration - - Weight 72.2 kg (159 lb 3.2 oz) 08/11/2024 10:55 AM EST Height 167.6 cm (5' 6 ) 04/13/2024 10:11 AM EDT Body Mass Index 25.7 04/13/2024 10:11 AM EDT Plan of Treatment Upcoming Encounters Date Type Department Care Team (Late st Contact Info) Description 12/09/2024 Orders Only [facility] [address] [address] Sebastián Timmons MD [address] [phone] Stage 3a chronic kidney disease (HCC); Proteinuria, not otherwise specified; Nephrolithiasis; Hypertension; Dyslipidemia; Diabetes mellitus, not otherwise specified (HCC); Cyst of kidney 12/09/2024 10:20 AM EDT Office Visit [facility] [address] [address] Sebastián Timmons MD [address] [address] Health Maintenance Due Date Last Done Comments Diabetes: Ophthalmology Exam 06/18/2023 Diabetes: Pedal Pulse Checked 06/18/2023 Diabetes: Sensory Foot Exam 06/18/2023 Diabetes: Visual Foot Exam 06/18/2023 Diabetes: Hemoglobin A1C 08/30/2023 05/30/2023 Pneumococcal Vaccine: 50+ Years Completed 05/20/2016, 01/10/2015, 05/03/2011, Additional history exists Influenza Vaccine Completed 04/01/2024, , 03/12/2019, Additional history exists Hepatitis B Vaccine Aged Out No longe r eligible based on patient's age to complete this topic Procedures Procedure Name Priority Date/Time Associated Diagnosis Comments EXT RESULT ENTRY Routine 05/30/2023 from Last 3 Months or Most Recently Relevant to Health Maintenance Results * (ABNORMAL) EXT RESULT ENTRY (05/30/2023) Sodium 144 137 - 147 Potassium 5.0 3.4 - 5.5 Chloride 104.0 99.0 - 108.0 Carbon Dioxide 28 mmol/L Anion Gap 17 <=30 MMOL/L Glucose 115 60 - 200 BUN 21 4 - 21 mg/dL Creatinine 1.70(A) 0.60 - 1.30 mg/dL Total Protein 7.1 6.4 - 8.2 G/DL Albumin 4.8 3.5 - 5.0 g/dL Calcium 9.5 8.7 - 10.7 mg/dL eGFR Non-Afr Cambodian 41 Total Bilirubin 0.5 MG/DL ALT (SGPT) 55 U/L AST (SGOT) 58 U/L Alkaline Phosphatase 112 U/L Hemoglobin A1C 6.2(A) 4.0 - 6.0 05/30/2023 us Historical Provider LAB BLOOD ORDERABLES Edit ed Result - Final from Last 3 Months or Most Recently Relevant to Health Maintenance Insurance Medicare [facility] Medicare [facility] Care Teams Client Engagement Specialist Relationship Specialty Start Date End Date Gabriel Fajardo MD [address] [place] [address] PCP - General Internal Medicine 06/05/23
--- OUTSIDE RECORDS SUMMARY | 2024-11-23 12:57 | XMS_ITS ---
Author Organization [facility] Address [address] [place] [address] Care Team Providers Care Medical Technologist Chemistry Name Role Phone Gabriel Fajardo MD Primary Care Provider Unavaila Felice Bullard Unavailable [phone] Allergies No Known Allergies REASON FOR VISIT At Risk Footcare, Painful Nail(s) aggrevated by shoes and causing difficulty standing/walking, Wart(s), Toe Irritation, Painful Toe/Nail(s) Medications Medication SIG (Take, Route, Frequency, Duration) Notes Start Date End Date Status Extra Depth Orthopedic Shoes, (1) Pair With (3) Pair Custom Heat Molded Multidensity Innersoles Dx: NIDDM/PVD(E11.51), Hammertoe Foot Deformity(M20.41,M20. 42), Preulcerative Skin Lesion(s)(L85.1) Wear Daily for 365 days 02/24/2024 Active Spiriva HandiHaler 18 MCG 1 capsule Inha lation Once a day Not-Taking Multivitamin Not-Dante ing Claravis Not-Taking Simvastatin 10 MG 1 tablet in the evening Orally Once a day for 30 day(s) Active metFORMIN HCl 500 MG 1 tablet with meals Orally Twice a day for 30 day(s) Active Incruse Ellipta Acti ve hydroCHLOROthiazide Active Garlic-Vit B6-Vit B12-FA Active Fish Oil 1000 MG 1 capsule Orally Onc e a day for 30 day(s) Active Dulera 100-5 MCG/ACT as directed Inhalation Active Donezepil HCl-10 mg Active Claritin Active Centrum Silver as directed Orally Active Social History Tobacco Use: Social History Observation Description Date Details (start date - stop date) Current Smoker NA - NA Tobacco Use/Smoking Question Answer Notes Are you a: current smoker Alcohol Screen Question Answer Notes Did you have a drink containing alcohol in the p ast year? No Points 0 Interpretation Negative Tobacco use other than smoking: Question Answer Notes Are you an other tobacco user? No Vital Signs Height 5 ft 6 in in 02/24/2024 Weight 170 lbs 02/24/2024 BMI 27.44 kg/m2 02/24/2024 Blood pressure systolic 130 mm Hg 02/24/20 24 Blood pressure diastolic 70 mm Hg 024 Procedures Procedure Date Ordered Date Performed Result Body Sit e 48964-NIDFPKJ NAIL, 6 OR MORE 02/24/2024 N/A 66349-Grbj Destruction, 1-14 02/24/2024 N/A 75401-PKIP SKIN LESIONS, OVER 4 02/24/2024 N/A 71441-Ocnh. Subungual Hematoma 02/24/2024 N/A Encounters Encounter Location Date Provider Diagnosis [facility] [address] [address] 02/24/2024 Felice Pickard Type 2 diabetes mellitus with diabetic peripheral angiopathy without gangrene E11.51 ; Plantar wart B07.0 ; Tinea unguium B35.1 ; Pain in right toe(s) M79.674 ; Pain in left toe(s) M79.675 ; Right foot pain M79.671 ; Other hammer toe(s) (acquired), right foot M20.41 ; Other hammer toe(s) (acquired), left foot M20.42 and Subungual hematoma of left foot, initial encounter S90.465A Assessments Encounter Date Diagnosis (ICD Code) Assessment Notes Treatment Notes Treatment Clinical Notes Section Notes 02/24/2024 Type 2 diabetes mellitus with diabetic peripheral angiopathy without gangrene (ICD-10 - E11.51) 02/24/2024 Plantar wart (ICD-10 - B07.0) 02/24/2024 Tinea unguium (ICD-10 - B35.1) 02/24/2024 Pain in right toe(s) (ICD-10 - M79.674) 02/24/2024 Pain in left toe(s) (ICD-10 - M79.675) 02/24/2024 Right foot pain (ICD-10 - M79.671) 02/24/2024 Other hammer toe(s) (acquired), right foot (ICD-10 - M20.41) Patient Educated with: DIABETIC FOOT CARE INSTRUCTIONS.p df (DIABETIC FOOT CARE INSTRUCTIONS.p df) 02/24/2024 Other hammer toe(s) (acquired), left foot (ICD-10 - M20.42) 02/24/2024 Subungual hematoma of left foot, initial encounter (ICD-10 - S90.222A) Plan Of Treatment Medication Medication Name Sig Start Date Stop Date Notes Extra Depth Orthopedic Shoes , (1) Pair With (3) Pair Custom Heat Molded Multidensity Innersoles Dx: NIDDM/PVD(E11.51), Hammertoe Foot Deformity(M20.41,M20.42), Preulcerative Skin Lesion(s)(L85.1) Wear Daily for 365 days 02/24/2024 Treatment Notes Assessment Notes Other hammer toe(s) (acquired), right fo ot Patient Educated with: DIABETIC FOOT CARE INSTRUCTIONS.pdf (DIABETIC FOOT CARE INSTRUCTIONS.pdf) Pending Test Test Name Order Date [id number]-TQKFECX NAIL, 6 OR MORE 02/24/2024 69966-Edxq Destruction, 1-14 02/24/2024 15508-ZOFV SKIN LESIONS, OVER 4 02/24/20 24 12854-Pdun. Subungual Hematoma Next Appt Details Follow Up: prn, Reason: Provider Name:Felice Pickard , 12/10/2024 10:00:00 AM, [address] [place], [address], Procedure Notes * Category Sub-Category Detail Notes Wart Treatment Procedure Verrucae(s) were debrided to pin-point bleeding margins with sterile surgical blade, silver nitrate chemocautery applied, recomm. immune-boosting meds such as zinc, recomm. follow up with topical chemosurgical agents, Pt STILL defers any other forms of tx (04377) , DIABETES: Any more invasive procedure to wart deferred due to diabetes risk Debride Nail 6-10 Nail debridement Nail debridem ent performed extensively to reduce/remove overall nail length and girth, subungual debris, and necrotic tissue, by manual and electrical means with use of a nail nipper and/or dremel, to more viable healthy nail plate or bed tissue 6-10. Silver nitrate used for any petechial bleeding as necessary. Patient chooses, no pharmaceutical tx (84939) I&D subungual hematoma: Location T2 , As per exam Procedure: Performed incision a nd drainage of subungual hematoma with use of sterile power hillary and/or nail nipper. Approximately ( 0.1 ) cc of hemorrhagic fluid material was drained. No underlying bone was visualized. An application of sterile Bacitracin dressing was performed. Local wound care instructions were discussed and dispensed , Pt was advised of the possibilty for nail auto-avulsion (92319) , DIABETES: Pt was advised as to the risk of delayed or nonhealing due to diabetes. Pt is to call the office with any questions, concerns, or complications Anesthesia was deferred - PT AB SOLUTELY REFUSES - tolerant to pain without issue/complication Keratoma Treatment Parring or Cutting o f Benign Hyperkeratotic Lesion(s) 39515 ( >4 Lesions) - The Benign hyperkeratotic lesions, as described above were pared, and/or cut utilizing a sterile #15 blade, tissue nippers, and/or dremel, Q8 Progress Notes * Aleksey BARCLAYaugust JrDOB:1944 (79 yo M)Acc No.[id number]:02/24/2024 Progress Note Patient:?Ning Justin Provider:?Felice Pickard DPM :1945???Age:79 Y???Sex:Male Luciano e:02/24/2024 Address:[address] [place], [place] [id number] Pcp:Gabriel Fajardo MD Subjective: * Chief Complaints: * ???At Risk FootcarePainful N ail(s) aggrevated by shoes and causing difficulty standing/walkingWart(s)Toe IrritationPainful Toe/Nail(s) * HPI: ???At Risk footcare:?Pt States Last PCP Visit:?Date?10/21/2023 ???Toe pain:?Location:?B/L feet.?Duration:?several years.?Course:?worse.?Aggravated by:?shoes, any pressure.?Treatments:?change in shoes.?Painful Nails:?Duration:?States Possible Date Of Injury - 02/21/24.? * ROS:?General/Constitutional:?Nausea?denies.?Vomiting?denies.?Hunger Thirst?denies.?Loss appetite?denies.?Chills?denies.?Fatigue?denies.?Fever?denies.?Night Sweats?denies.?Unexplained weight loss?denies.?Ophthalmologic:?Blurred vision?denies.?Red eye?denies.?HEENTM:?Dentures?admits.?Dizziness?denies.?Glasses/contacts?admits.?Retinopathy?de nies.?Blurred/double vision?denies.?TMJ?denies.?Discharge/drainage?denies.?Implants?denies.?Hard of hearing denies.?Difficulty chewing/swallowing/speaking?denies.?Nose bleeds?denies.?Sore mouth?denies.?Swollen glands?denies.?Respiratory:?On Oxygen?denies.?Pneumonia/pleurisy?denies.?Bronchitis?denies.?Emphysema?denies.?C oughing?denies.?Cough blood?denies.?Shortness of breath?admits.?Wheezing?admits.?Cardiovascular:?Pacemaker?denies.?MVP?denies.?WPW?denies.?CHF?denies.?Heart attack?denies.?Septal defect?denies.?Rapid beat?denies.?Chest pain ?denies.?Atrial Fib.?denies.?Murmur/Palpitations?denies.?Gastrointestinal:?Hemorrhoids?denies.?Stomach/Abdominal pain?denies.?Dark blood stool?denies.?Irritable bowel ?denies.?Constipation?denies.?Diarrhea?denies.?Vomiting?denies.?Hematology:?Swelling?denies.?Bruising?denies.?Bleeding problem?denies.?Genitourinary:?Blood urine?denies.?Frequent/Painfu/urination/bladder control?denies.?Kidney stones?denies.?Infection (UTI)?denies.?Nephropathy?denies.?Musculoskeletal:?Hammertoes?admits.?Bunions?denies.?Scoliosis/kyphosis?denies.?Muscle cramps / walking?denies.?Generalized aches and pains?denies.?Weakness?denies.?Integ.:?Tadeo?denies.?Scars?denies.?Corns/calluses?admits.?Ingrown nails?admits.?Painful nails?admits.?Rashes?denies.?Neurologic:?Difficulty sleeping?denies.?Bipolar?denies.?Brain disorder?denies.?Balance trouble?denies.?Confusion?denies.?Fainting/blackouts?denies.?Headache?denies.?Tr emors?denies.? * Medical History:? * Surgical History:?appendecto my 1963colonoscopy 01/2014cataract surgery 09/28/2018 * Hospitalization/Major Diagno stic Procedure:?Denies Past Hospitalization * Family History:?Mother: dece ased.?Father: , diagnosed with Other malignant neoplasm of unspecified site.? * Social History:?Tobacco Use:?Tobacco Use/Smoking?Are you a:?current smoker ?Tobacco use other than smoking?Are you an other tobacco user??No ???Drugs/Alcohol:?Drugs?Have you used drugs other than those for medical reasons in the past 12 months??No ?Alcohol Screen?Did you have a drink containing alcohol in the past year??No ?Points?0 ?Interpretation?Negative ???Miscellaneous:?Caffeine: yes, frequency:, 1-2 cups per day. ?Children: yes, 3. ?Exercise: yes, yard work, walking dog. ?Marital status: . ?Occupation: Retired. * Medications:?TakingDonezepil HCl-10 mg Dulera 100-5 MCG/ACT Aerosol as directed Inhalation Centrum Silver Tablet as directed Orally Claritin Fish Oil 1000 MG Capsule 1 capsule Orally Once a dayGarlic-Vit B6-Vit B12-FA hydroCHLOROthiazide Incruse Ellipta metFORMIN HCl 500 MG Tablet 1 tablet with meals Orally Twice a daySimvastatin 10 MG Tablet 1 tablet in the evening Orally Once a dayTaking Donezepil HCl-10 mg Taking Dulera 100-5 MCG/ACT Aerosol as directed Inhalation Taking Centrum Silver Tablet as directed Orally Taking Claritin Taking Fish Oil 1000 MG Capsule 1 capsule Orally Once a dayTaking Garlic-Vit B6-Vit B12-FA Taking hydroCHLOROthiazide Taking Incruse Ellipta Taking metFORMIN HCl 500 MG Tablet 1 tablet with meals Orally Twice a dayTaking Simvastatin 10 MG Tablet 1 tablet in the evening Orally Once a dayNot-Taking/PRNClaravis Multivitamin Spiriva HandiHaler 18 MCG Capsule 1 capsule Inhalation Once a dayMedication List reviewed and reconciled with the patientNot-Taking/PRN Claravis Not-Taking/PRN Multivitamin Not-Taking/PRN Spiriva HandiHaler 18 MCG Capsule 1 capsule Inhalation Once a dayMedication List reviewed and reconciled with the patient * Allergies:?N.K.D.A.yes[Aller junior Verified] Objective: * Vitals:?Ht: 5 ft 6 in, Wt:17 0, BMI:27.44, Shoe size:8, BP:130/70 mm Hg, BS:not taken. * Examination: ???Vascular: ?DP PULSES:?0-1 B/L.?PT PULSES:?0/4, B/L.?CAPILLARY FILL TIME:?delayed, all digits, B/L.?SKIN TEMPERTURE GRADIENT OF THE LOWER EXTERMITIES:? decreased, cool to cool, proximal to distal, B/L.?HAIR GROWTH/TEXTURE/ELASTICITY/TURGOR:? decreased, B/L.?PIGMENTATION:? mottled, B/L.?EDEMA:?absent, B/L.?CLAUDICATION:?denies, B/L.?REST PAIN:?denies, B/L.?Nails: ?NAILS are:?Elongated, overgrown, dystrophic, lytic, greater than 3mm thick, discolored and friable with crumbly malodorous subungual debris, with pain on palpation, TA, T4, T5, T6, T7, T9 , remaining nails are elongated, overgrown, dystrophic , There is evidence of pain on palpation, and an area of SUBUNGUAL HEMORRHAGIC fluid with a pre-operative size measuring approximately ( 1-2 ) mm square, T2.?Dermatologic: ?SKIN FINDINGS:? Skin exam reveals Keratotic lesion(s) located at, Medial plantar, IPJ, TA, Medial plantar, IPJ, T5, Plantar, T9, SUB MTH (s), 1, B/L , Heel(s), B/L.?VERRUCA:?Cont to reveal a Single , multi-loculated , mosaic, round, raised, flat-topped, petechial bleeding papulae(s), with cauliflower appearance and interrruption of skin lines, with pain to lateral compression, and size estimated at 3-4mm diameter, plantar Forefoot, RIGHT.?Orthopedic: ?MUSCLE STRENGTH:?5/5 all groups in a symmetrical fashion , B/L , 5/5 all groups in a symmetrical fashion , B/L.?FOOT MORPHOLOGY:? Pes Planus structure, No Charcot collapse/destruction noted at MTJ.?DIGITAL DEFORMITIES:?Digital contracture, PIPJ, 2-5 B/L, incompl-reducible to push-up test, no over, nor underlapping,?with evidence of shoe producing skin irritation.?FOOTWEAR:?worn, OT were inspected and noted to be severely worn , in poor condition not giving proper support at the present time , shoe gear properties exacerbate patients foot/toe deformity.?Neurological: ?SENSORY:?Neurological exam reveals intact sensorium, pain sensation normal, vibration sensation intact, pinprick sensation is normal in the lower extremities, 5.07 monofilament test performed at plantar aspects of 5 varied sites per foot shows sensation, normal, B/L, Pt denies, anesthesia, burning, paresthesia, tingling, B/L.?Ophthalmology Referral: ?DIABETES EYE EXAM?Diabetic Retinopathy Screening:?Yes ?Findings of Diabetic Eye Exam:?no retinopathy?General Examination: ?GENERAL APPEARANCE:?Reveals a pleasant, alert, well nourished, well developed, well hydrated individual, who demonstrates proper attention to hygiene/body habitus, and is in no acute distress.?ORIENTED:?person, place, and time.?FOOT EXAM:?Lower Extremity Neurological Exam performed:?Yes ?Footwear Evaluation?Footwear Evaluation performed:?Yes??? Assessment: * Assessment: 1.?Type 2 diabetes mellitus with diabetic peripheral angiopathy without gangrene - E11.51?2.?Plantar wart - B07.0 (Primary), RIGHT?3.?Tinea unguium - B35.1?4.?Pain in right toe(s) - M79.674?5.?Pain in left toe(s) - M79.675?6.?Right foot pain - M79.671?7.?Other hammer toe(s) (acquired), right foot - M20.41, Chronic problem, Worse (4),Rx Management (4)?8.?Other hammer toe(s) (acquired), left foot - M20.42, Chronic problem, Worse (4),Rx Management (4)?9.?Subungual hematoma of left foot, initial encounter - S90.222A? Plan: * Treatment: 2.?Type 2 diabetes mellitus with diabetic peripheral angiopathy without gangrene?Procedure: 75750-XWAY SKIN LESIONS, OVER 4 3.?Tinea unguium?Procedure: 69028-GWIHYZC NAIL, 6 OR MORE 4.?Other hammer toe(s) (acqu ired), right foot? Start Extra Depth Orthopedic Shoes, (1) Pair ., With (3) Pair Custom Heat Molded Multidensity Innersoles, Dx: NIDDM/PVD(E11.51), Hammertoe Foot Deformity(M20.41,M20.42), Preulcerative Skin Lesion(s)(L85.1), Wear, Daily, 365 days, 2, Refills 0.?? Notes: Patient Educated with: DIABETIC FOOT CARE INSTRUCTIONS.pdf (DIABETIC FOOT CARE INSTRUCTIONS.pdf)?? 5.?Subungual hematoma of lef t foot, initial encounter?Procedure: 23661-Tzyf. Subungual Hematoma * Procedures:?Debride Nail 6-10:?Nail debridement?Nail debridement performed extensively to reduce/remove overall nail length and girth, subungual debris, and necrotic tissue, by manual and electrical means with use of a nail nipper and/or dremel, to more viable healthy nail plate or bed tissue 6-10. Silver nitrate used for any petechial bleeding as necessary. Patient chooses, no pharmaceutical tx (16412).?I&D subungual hematoma::?Location?T2 , As per exam.?Anesthesia?was deferred - PT ABSOLUTELY REFUSES - tolerant to pain without issue/complication.?Procedure:?Performed incision and drainage of subungual hematoma with use of sterile power hillary and/or nail nipper. Approximately ( 0.1 ) cc of hemorrhagic fluid material was drained. No underlying bone was visualized. An application of sterile Bacitracin dressing was performed. Local wound care instructions were discussed and dispensed , Pt was advised of the possibilty for nail auto-avulsion (33907) , DIABETES: Pt was advised as to the risk of delayed or nonhealing due to diabetes. Pt is to call the office with any questions, concerns, or complications.?Keratoma Treatment:?Parring or Cutting of Benign Hyperkeratotic Lesion(s)?19789 ( >4 Lesions) - The Benign hyperkeratotic lesions, as described above were pared, and/or cut utilizing a sterile #15 blade, tissue nippers, and/or dremel, Q8.?Wart Treatment:?Procedure?Verrucae(s) were debrided to pin-point bleeding margins with sterile surgical blade, silver nitrate chemocautery applied, recomm. immune-boosting meds such as zinc, recomm. follow up with topical chemosurgical agents, Pt STILL defers any other forms of tx (93171) , DIABETES: Any more invasive procedure to wart deferred due to diabetes risk.? * Procedure Codes:?30804 DEBRI DE NAIL, 6 OR MORE, Modifiers: XS 81409 DRAIN BLOOD FROM UNDER NAIL, Modifiers: XS , [id number] Wart Destruction, 1-14, Modifiers: XS 37795 TRIM SKIN LESIONS, OVER 4, Modifiers: XS , Q8 * Preventive Medicine:? ??Counseling:?Tobacco use:?Type of Tobacco Use Cessation Counseling provided?Smoking effects education ?Discussion:?-14: Office or other outpatient visit for the evaluation and management of an established patient, which required a medically appropriate history and/or examination and MODERATE level of DECISION MAKING for: 1 OR MORE CHRONIC PROBLEM(S) THATS WORSENING, 2 STABLE CHRONIC PROBLEMS, A NEWLY DIAGNOSED PROBLEM WITH UNCERTAIN PROGNOSIS, AN ACUTE COMPLICATED INJURY WITH MULTIPLE TREATMENT OPTIONS, OR AN ACUTE PROBLEM WITH ACCOMPANYING SYSTEMIC SYMPTOMS, THAT POSE(S) A MODERATE RISK OF MORBIDITY. THIS CONDITION MAY ALSO INCLUDE RX DRUG MANAGEMENT, OR A DECISON FOR MINOR SURGERY. The visit on the day of the encounter encompassed interpreting the data and educating the patient as to the nature of their condition, treatment options available according to their individual PMH, meds, allergies, and overall health/living conditions, as well as any potential risks or complications that may occur from a failure to adhere to, and participate in, the recommended course of therapy. The discussion included a complete verbal, and/or written explanation of the examination results, any x-rays taken, the proposed diagnosis, and outline of the treatment plan. A schedule for future care needs was also explained. The patient verbalized an understanding of the instructions at this time and agreed to be an active participant in their treatment. If the patient should think of any questions or concerns after the visit, I have encouraged the patient to call the office.?Digital Surgery:?Digital surgery was discussed with the patient, We elected to try conservative treatment at the present time, due to the patients medical history and increased asssociated post-operative risks.?Digital Treatment:?HT- I explained to the patient the possible etiologies of Hammertoes, including genetics/foot type/shoegear/activity level/exercise routine and the risks/benefits of all the different treatment options for their pain including: No treatment at all, Rest, Ice, New/supportive/wider/deeper Shoegear, Digital Padding/Strapping/Taping/Bracing/Gel protective sleeves, Foot/Ankle AFO Bracing, Stretching exercises, Deep Tissue Massage, Arch support/shoe inserts with splay metatarsal padding, and Custom orthoses. I insisted that any digital devices be removed daily and not worn overnight for safety. The patient is to carefully examine the toes daily for any skin irritation while using any splinting or padding device. The advantages and disadvantages of each option were discussed and the patients questions re: shoegear, padding, custom vs prefabricated inserts, activity level, and consistency in home treatment regimens for optimal success were answered to their verbally confirmed satisfaction.?Shoe Gear Counseling:?SHOE Rx - The patient was counseled in great detail on their muscoloskeletal foot and toe deformities which coincided with the dermatological presentations visualized on exam. We discussed how their deformities put the integrity of their feet at risk for potential pedal complications which makes the accomidative diabetic shoes and cutomizable inserts medically necessary. We discussed the different shoe and insert treatment types and options, as well as the important advantages for adhering to regularly wearing these accomidative devices daily. The patient was made aware of the fact that a failure to abide by these recommedations may be deleterious to their foot health as they are able to prevent many pedal complications such as skin irritation, skin ulceration, infection, and even loss of toe/foot/leg/or life. Time was also spent with the patient dispensing and discussing proper diabetic footcare techniques including daily skin moisturization, daily foot inspection for any interruption in skin integrity including open lesions, or sign of infection such as redness/malodor/drainage/swelling. Also discussed and recommended were procedures regarding daily shoe inspection for the presence of internal foreign bodies as well as any visualized irregular shoe or insert wear. Patient questions re: shoes, inserts, and self foot inspections were answered to their satisfaction as the patient verbally confirmed a full understanding of the above information. A Rx for Extra Depth Orthopedic Shoes with 3 pair of custom heat-molded inserts was dispensed.? ??Screening/Special Tests:?Fall Risk?Assessment:?Performed ?Plan of Care:?Documented ?Screening:?No falls in the past year ?FALLS: Screening for Future Fall Risk?Have you had two or more falls in the past year??No ?Have you had any falls with injury in the past year??No * Follow Up:?prn * Images: * Sign off status: Completed true * Provider:?Felice Melly, DPM Date:?2023 Generated for Emelina lucas/Vijaya/Krystinitting on:?11/23/2024 12:56 PM EDT History and Physical Notes * HPI (History of Present Illness) Category Sub-Category Detail Notes Category Not es Toe pain Location: B/L feet Duration: several years Course: worse Aggravated by: shoes, any pressure Treatments: change in shoes Painful Nails Duration: States Possible Date Of Inj ury - 02/21/24 At Risk footcare Pt States Last PCP Visit: Date: 4 Examination Category Sub-Category Detail Notes Category Not es Neurological SENSORY: Neurological exa m reveals intact sensorium, pain sensation normal, vibration sensation intact, pinprick sensation is normal in the lower extremities, 5.07 monofilament test performed at plantar aspects of 5 varied sites per foot shows sensation, normal, B/L, Pt denies, anesthesia, burning, paresthesia, tingling, B/L Dermatologic SKIN FINDINGS: Skin exam reveal s Keratotic lesion(s) located at, Medial plantar, IPJ, TA, Medial plantar, IPJ, T5, Plantar, T9, SUB MTH (s), 1, B/L , Heel(s), B/L VERRUCA: Cont to reveal a Sin gle , multi-loculated , mosaic, round, raised, flat-topped, petechial bleeding papulae(s), with cauliflower appearance and interrruption of skin lines, with pain to lateral compression, and size estimated at 3-4mm diameter, plantar Forefoot, RIGHT Orthopedic FOOT MORPHOLOGY: Pes Planus stru cture, No Charcot collapse/destruction noted at MTJ FOOTWEAR EVALUATION: worn, OT were inspe cted and noted to be severely worn , in poor condition not giving proper support at the present time , shoe gear properties exacerbate patients foot/toe deformity DIGITAL DEFORMITIES: Digital contracture , PIPJ, 2-5 B/L, incompl-reducible to push-up test, no over, nor underlapping, with evidence of shoe producing skin irritation MUSCLE STRENGTH: 5/5 all groups in a symmetrical fashion , B/L , 5/5 all groups in a symmetrical fashion , B/L General Examination GENERAL APPEARANCE: Reveals a pleasant, alert, well nourished, well developed, well hydrated individual, who demonstrates proper attention to hygiene/body habitus, and is in no acute distress FOOT EXAM: Lower Extremity Neurological Exa m performed:: Yes ORIENTED: person, place, and t agata Footwear Evaluation Footwear Evaluation performe d:: Yes Ophthalmology Referral DIABETES EYE EXAM Diabetic Retinopa thy Screening:: Yes Findings of Diabetic Eye Exam:: no retin opathy Vascular DP PULSES (B): 0-1 B/L PT PULSES (B): 0/4, B/L CAPILLARY FILL TIME: delayed, all digits , B/L TEMPERTURE GRADIENT (C): decreased, cool to cool, proximal to distal, B/L TROPHIC CONDITION-TEXTURE/ELASTICITY/TURGOR/HAIR GROWTH (B): decreased, B/L EDEMA (C): absent, B/L CLAUDICATION (C): denies, B/L REST PAIN: denies, B/L PIGMENTATION: mottled, B/L Nails NAILS are: Elongated, overg rown, dystrophic, lytic, greater than 3mm thick, discolored and friable with crumbly malodorous subungual debris, with pain on palpation, TA, T4, T5, T6, T7, T9 , remaining nails are elongated, overgrown, dystrophic , There is evidence of pain on palpation, and an area of SUBUNGUAL HEMORRHAGIC fluid with a pre-operative size measuring approximately ( 1-2 ) mm square, T2
--- OUTSIDE RECORDS SUMMARY | 2024-11-23 12:57 | XMS_ITS ---
Author Organization [facility] Address [address] [place] [id number] Care Team Providers Care Platform Mill Supervisor Name Role Phone Scotty FIGUEREDO, Gabriel Primary Care Provider Unavaila Felice Bullard Unavailable [phone] Encounters Encounter Location Date Provider Diagnosis [address] [address] 08/24/2024 Felice Pickard Plan Of Treatment Next Appt Details Provider Name:Felice Pickard , 12/10/2024 10:00:00 AM, [address] [place] [address], [phone], Progress Notes * Justin BARCLAY DOB:1944 (79 yo M)Acc No.[id number]:08/24/2024 Progress Note Patient:?Justin BARCLAY Provider:?Felice Pickard DPM :1945???Age:79 Y???Sex:Male Luciano e:08/24/2024 Address:[address] [place] [address] Pcp:Gabriel Fajardo MD Subjective: * Chief Complaints: * ??? * Medical History:? Objective: * Vitals:? Assessment: Plan: * Treatment: * Images: * The named appointment provid er may or may not be the originator of this progress note, and it is not deemed complete until electronically signed by the appointment provider. Sign off status: Pending * Provider:?Felice Pickard DPM Date:?2024 Generated for Emelina lucas/Vijaya/Marita on:?11/23/2024 12:57 PM EDT
--- OUTSIDE RECORDS SUMMARY | 2024-11-23 12:57 | XMS_ITS ---
[facility] Address [address] [place] [address] Care Team Providers Care Virtualization Architect Name Role Phone Gabriel Fajardo MD Primary Care Provider Unavaila Felice Bullard Unavailable [phone] Allergies No Known Allergies REASON FOR VISIT At Risk Footcare, Painful Nail(s) aggrevated by shoes and causing difficulty standing/walking, Wart(s), Toe Irritation Medications Medication SIG (Take, Route, Frequency, Duration) Notes Start Date End Date Status hydroCHLOROthiazide Active Garlic-Vit B6-Vit B12-FA Active Centrum Silver as directed Orally Active Fish Oil 1000 MG 1 capsule Orally Onc e a day for 30 day(s) Active Claritin Active Donezepil HCl-10 mg Active Extra Depth Orthopedic Shoes, (1) Pair With (3) Pair Custom Heat Molded Multidensity Innersoles Dx: NIDDM/PVD(E11.51), Hammertoe Foot Deformity(M20.41,M20. 42), Preulcerative Skin Lesion(s)(L85.1) Wear Daily for 365 days Active Spiriva HandiHaler 18 MCG 1 capsule Inha lation Once a day Not-Taking Dulera 100-5 MCG/ACT as directed Inhalation Active Multivitamin Not-Dante ing Incruse Ellipta Acti ve Simvastatin 10 MG 1 tablet in the evening Orally Once a day for 30 day(s) Active metFORMIN HCl 500 MG 1 tablet with meals Orally Twice a day for 30 day(s) Active Claravis Not-Taking Social History Tobacco Use: Social History Observation [...] ast year? No Points 0 Interpretation Negative Vital Signs Height 5 ft 6 in in 09/03/2024 Weight 170 lbs 09/03/2024 BMI 27.44 kg/m2 09/03/2024 Blood pressure systolic 130 mm Hg 09/03/19 25 Blood pressure diastolic 70 mm Hg 025 Procedures Procedure Date Ordered Date Performed Result Body Sit e 57147-SDOUXOF NAIL, 6 OR MORE 09/03/2024 N/A 43439-Afna Destruction, 1-14 09/03/2024 N/A 25427-SZGT SKIN LESIONS, OVER 4 09/03/2024 N/A Encounters Encounter Location Date Provider Diagnosis [facility] [address] [address] 09/03/2024 Felice Pickard Type 2 diabetes mellitus [...] Treatment Notes Treatment Clinical Notes Section Notes 09/03/2024 Type 2 diabetes mellitus with diabetic peripheral angiopathy without gangrene (ICD-10 - E11.51) 09/03/2024 Plantar wart (ICD-10 - B07.0) 09/03/2024 Tinea unguium (ICD-10 - B35.1) 09/03/2024 Pain in right toe(s) (ICD-10 - M79.674) 09/03/2024 Pain in left toe(s) (ICD-10 - M79.675) 09/03/2024 Other hammer toe(s) (acquired), right foot (ICD-10 - M20.41) Patient Educated with: DIABETIC FOOT CARE INSTRUCTIONS.p df (DIABETIC FOOT CARE INSTRUCTIONS.p df) 09/03/2024 Other hammer toe(s) (acquired), left foot (ICD-10 - M20.42) 09/03/2024 Pain in left foot (ICD-10 - M79.672) Plan Of Treatment Medication Medication Name Sig Start Date Stop Date Notes Extra Depth Orthopedic Shoes , (1) Pair With (3) Pair Custom Heat Molded Multidensity Innersoles Dx: NIDDM/PVD(E11.51), Hammertoe Foot Deformity(M20.41,M20.42), Preulcerative Skin Lesion(s)(L85.1) Wear Daily for 365 days Treatment Notes Assessment Notes Other hammer toe(s) (acquired), right fo ot Patient Educated with: DIABETIC FOOT CARE INSTRUCTIONS.pdf (DIABETIC FOOT CARE INSTRUCTIONS.pdf) Pending Test Test Name Order Date 89727-RVYAYUM NAIL, 6 OR MORE 09/03/2024 12008-Qoqa Destruction, -09/03/2024 21972-ICDI SKIN LESIONS, OVER 4 09/03/19 25 Next Appt Details Follow Up: prn, Reason: Provider Name:Felice Pickard , 12/10/2024 10:00:00 AM, [address] [place] [address], [phone], Procedure Notes * Category Sub-Category Detail Notes Wart Treatment Procedure Verruca, as desc ribed in exam, were debrided to pin-point bleeding margins with sterile 15 surgical blade, silver nitrate chemocautery applied, recomm. immune-boosting meds such as zinc, recomm. follow up with topical chemosurgical agents, Pt defers any other forms of tx - 22703 Debride Nail 6-10 Nail debridement Due to the cl inical pathology outlined in the exam findings, performance of this nail treatment is medically necessary as its management by an unskilled/untrained nonprofessional would put this patients foot and overall health at risk. Therefore, debridement to affected nail(s), as described in exam ( TA, T4, T5, T6, T7, T9 ), was performed exclusively by the physician of record to reduce/remove overall nail length, girth, thickness, subungual debris, and necrotic tissue, by manual and/or electrical means through the use of a nail nipper and/or dremel-type miter grinder operator, to a more viable healthy nail plate or bed tissue 6-10 nails in total. Silver nitrate was used for any petechial bleeding as necessary. Definitive antifungal treatment options, both pharmaceutical and surgical, have been reviewed and discussed with the patient. The patient solely prefers the use of intermittent/as needed professional debridement services for their nail condition and understands the need for additional periodic treatments to maintain effectiveness in symptomatic relief - 48202 Keratoma Treatment Parring or Cutting o f Benign Hyperkeratotic Lesion(s) (-57) More than 4 Lesions - Due to the at risk nature of the patients medical condition as documented in the exam findings, performance of this keratoderma treatment is medically necessary as its management by an unskilled/untrained nonprofessional would put this patients foot and overall health at risk. Therefore, the benign hyperkeratotic lesions, ( 7 ) in total, locations as stated and described in the exam ( Medial plantar, IPJ, TA, Medial plantar, IPJ, T5, Plantar, T9, SUB MTH (s), 1, B/L ,Plantar, Heel(s), B/L ), were pared, and/or cut utilizing a sterile 15 blade, tissue nippers, and/or power dremel instrumentation by the physician of record - 48333, Q8 Progress Notes * Justin BARCLAY JrDOB:1944 (79 yo M)Acc No.[id number]:09/03/2024 Progress Note Patient:?Justin BARCLAY Jr Provider:?Felice Pickard DPM :1945???Age:79 Y???Sex:Male Luciano e:09/03/2024 Address:[address] [place], [place] [id number] Pcp:Gabriel Fajardo MD Subjective: * Chief Complaints: * ???At Risk FootcarePainful N ail(s) aggrevated by shoes and causing difficulty standing/walkingWart(s)Toe Irritation * HPI: ???At Risk footcare:?Pt States Last PCP Visit:?Date?07/26/2024 ?Misc?Patient accompanied by, ,MAYRA, who is physically present in exam room at time of visit.?Toe pain:?Location:?B/L feet.?Duration:?several years.?Course:?worse.?Aggravated by:?shoes, any pressure.?Treatments:?change in shoes.? * ROS:?General/Constitutional:?Nausea?denies.?Vomiting?denies.?Hunger Thirst?denies.?Loss appetite?denies.?Chills?denies.?Fatigue?denies.?Fever?denies.?Night Sweats?denies.?Unexplained weight loss?denies.?Ophthalmologic:?Blurred vision?denies.?Red eye?denies.?HEENTM:?Dentures?admits.?Dizziness?denies.?Glasses/contacts?admits.?Retinopathy?den ies.?Blurred/double vision?denies.?TMJ?denies.?Discharge/drainage?denies.?Implants?denies.?Hard of hearing denies.?Difficulty chewing/swallowing/speaking?denies.?Nose bleeds?denies.?Sore mouth?denies.?Swollen glands?denies.?Respiratory:?On O xygen?denies.?Pneumonia/pleurisy?denies.?Bronchitis?denies.?Emphysema?denies.?Co ughing?denies.?Cough blood?denies.?Shortness of breath?admits.?Wheezing?admits.?Cardiovascular:?Pacemaker?denies.?MVP?denies.?WPW?denies.?CHF?denies.?Heart attack?denies.?Septal defect?denies.?Rapid beat?denies.?Chest pain ?denies.?Atrial Fib.?denies.?Murmur/Palpitations?denies.?Gastrointestinal:?Hemorrhoids?denies.?Stomach/Abdominal pain?denies.?Dark blood stool?denies.?Irritable bowel ?denies.?Constipation?denies.?Diarrhea?denies.?Vomiting?denies.?Hematology:?Swelling?denies.?Bruising?denies.?Bleeding problem?denies.?Genitourinary:?Blood urine?denies.?Frequent/Painfu/urination/bladder control?denies.?Kidney stones?denies.?Infection (UTI)?denies.?Nephropathy?denies.?Musculoskeletal:?Hammertoes?admits.?Bunions?denies.?Scoliosis/kyphosis?denies.?Muscle cramps / walking?denies.?Generalized aches and pains?denies.?Weakness?denies.?Integ.:?Tadeo?denies.?Scars?denies.?Corns/calluses?admits.?Ingrown nails?admits.?Painful nails?admits.?Rashes?denies.?Neurologic:?Difficulty sleeping?denies.?Bipolar?denies.?Brain disorder?denies.?Balance t rouble?denies.?Confusion?denies.?Fainting/blackouts?denies.?Headache?denies.?Ben mors?denies.? * Medical History:? * Surgical History:?appendecto my 1963colonoscopy 01/2014cataract surgery 09/28/2018 * Hospitalization/Major Diagno stic Procedure:?Denies Past Hospitalization * Family History:?Mother: dece ased.?Father: , diagnosed with Other malignant neoplasm of unspecified site.? * Social History:?Tobacco Use:?Tobacco use other than smoking?Are you an other tobacco user??No ?Tobacco Control (Standard)?Tobacco use:?Nonsmoker ?Additional Findings: Tobacco non-user?Current nonsmoker ???Drugs/Alcohol:?Drugs?Have you used drugs other than those for medical reasons in the past 12 months??No ???Miscellaneous:?Caffeine: yes, frequency:, 1-2 cups per day. ?Children: yes, 3. ?Exercise: yes, yard work, walking dog. ?Marital status: . ?Occupation: Retired. ???Drug/Alcohol:?AUDIT-C (Standard)?Did you have a drink containing alcohol in the past year??No ?Points?0 ?Interpretation?Negative * Medications:?TakingDonezepil HCl-10 mg Dulera 100-5 MCG/ACT Aerosol as directed Inhalation Centrum Silver Tablet as directed Orally Claritin Fish Oil 1000 MG Capsule 1 capsule Orally Once a day Garlic-Vit B6-Vit B12-FA hydroCHLOROthiazide Incruse Ellipta metFORMIN HCl 500 MG Tablet 1 tablet with meals Orally Twice a day Simvastatin 10 MG Tablet 1 tablet in the evening Orally Once a day Extra Depth Orthopedic Shoes, (1) Pair With (3) Pair Custom Heat Molded Multidensity Innersoles . Dx: NIDDM/PVD(E11.51), Hammertoe Foot Deformity(M20.41,M20.42), Preulcerative Skin Lesion(s)(L85.1) Wear Daily Taking Donezepil HCl-10 mg Taking Dulera 100-5 MCG/ACT Aerosol as directed Inhalation Taking Centrum Silver Tablet as directed Orally Taking Claritin Taking Fish Oil 1000 MG Capsule 1 capsule Orally Once a day Taking Garlic-Vit B6-Vit B12-FA Taking hydroCHLOROthiazide Taking Incruse Ellipta Taking metFORMIN HCl 500 MG Tablet 1 tablet with meals Orally Twice a day Taking Simvastatin 10 MG Tablet 1 tablet in the evening Orally Once a day Taking Extra Depth Orthopedic Shoes, (1) Pair With (3) Pair Custom Heat Molded Multidensity Innersoles . Dx: NIDDM/PVD(E11.51), Hammertoe Foot Deformity(M20.41,M20.42), Preulcerative Skin Lesion(s)(L85.1) Wear Daily Not-Taking/PRNClaravis Multivitamin Spiriva HandiHaler 18 MCG Capsule 1 capsule Inhalation Once a day Medication List reviewed and reconciled with the patientNot-Taking/PRN Claravis Not-Taking/PRN Multivitamin Not- Taking/PRN Spiriva HandiHaler 18 MCG Capsule 1 capsule Inhalation Once a day Medication List reviewed and reconciled with the patient * Allergies:?N.K.D.A.yes[Aisha pacheco Verified] Objective: * Vitals:?Ht: 5 ft 6 in, Wt:17 0, BMI: 27.44, Shoe size:8, BP:130/70mm Hg, BS:140, Wt-k.11 kg. * ???Past Orders: ???Lab:HEMOGLOBIN A1C (GLYCO HEMOGLOBIN) (Order Date - 06/21/2024) (Collection Date & Time - 09/03/2024 11:32 AM) ? Value Reference Range ?HEMOGLOBIN A1C % (HH) 7.0 * Examination: ???Ophthalmology Referral: ?DIABETES EYE EXAM?Procedure Performed:?Yes ?Date of Exam Performed?05/25/2024 ?Diabetic Retinopathy Screening:?Yes ?Retinal Screening Performed:?Yes ?Findings of Diabetic Eye Exam:?no retinopathy?Vascular: ?DP PULSES (B):?0-1 B/L.?PT PULSES (B):?0/4, B/L.?CAPILLARY FILL TIME:?delayed, all digits, B/L.?TROPHIC CONDITION-TEXTURE/ELASTICITY/TURGOR/HAIR GROWTH (B):? decreased,?with sparse to absent hair growth, B/L.?TEMPERTURE GRADIENT (C):? decreased, cool to cool, proximal to distal, B/L.?PIGMENTATION:? mottled, B/L.?EDEMA (C):?absent, B/L.?CLAUDICATION (C):?denies, B/L.?REST PAIN:?denies, B/L.?Nails: ?NAILS are:?Elongated, overgrown, dystrophic, lytic, greater than 3mm thick, discolored and friable with crumbly malodorous subungual debris, with pain on palpation, TA, T4, T5, T6, T7, T9, all other nails not described with characteristics as possessing mycosis are elongated, overgrown, and dystrophic.?Dermatologic: ?SKIN FINDINGS:? Skin exam reveals Keratotic lesion(s) located at, Medial plantar, IPJ, TA, Medial plantar, IPJ, T5, Plantar, T9, SUB MTH (s), 1, B/L ,Plantar, Heel(s), B/L.?VERRUCA:?NOW NO FURTHER SIGN of mosaic papule(s) with skin lines now evident and visible, plantar Forefoot, RIGHT Reveals a Single , multi-loculated , mosaic-patterned, round, raised, flat- topped, petechial bleeding papule(s), with cauliflower appearance and interruption of skin lines, pain to lateral compression, and size estimated at 6mm diameter,?plantar Forefoot, LEFT.?Orthopedic: ?MUSCLE STRENGTH:?5/5 all groups in a symmetrical [...] B/L, Pt denies, anesthesia, burning, paresthesia, tingling, B/L.?General Examination: ?GENERAL APPEARANCE:?Reveals a pleasant, alert, well nourished, well developed, well hydrated individual, who demonstrates proper attention to hygiene/body habitus, and is in no acute distress.?ORIENTED:?person, place, and time.?FOOT EXAM:?Lower Extremity Neurological Exam performed:?Yes ?Visual exam of foot performed:?Yes ?Date?09/03/2024 ?Footwear Evaluation?Footwear Evaluation performed:?Yes??? Assessment: * Assessment: 1.?Type 2 diabetes mellitus with diabetic peripheral angiopathy without gangrene - E11.51???2.?Plantar wart - B07.0 (Primary)???Specify :LEFT???3.?Tinea unguium - B35.1???4.?Pain in right toe(s) - M79.674???5.?Pain in left toe(s) - M79.675???6.?Other hammer toe(s) (acquired), right foot - M20.41???Specify :Chronic problem, Worse (4),Rx Management (4)???7.?Other hammer toe(s) (acquired), left foot - M20.42???Specify :Chronic problem, Worse (4),Rx Management (4)???8.?Pain in left foot - M79.672??? Plan: * Treatment: 2.?Type 2 diabetes mellitus with diabetic peripheral angiopathy without gangrene?Procedure: 83348-CBLY SKIN LESIONS, OVER 4 3.?Tinea unguium?Procedure: 30671-UQCIEHJ NAIL, 6 OR MORE 4.?Other hammer toe(s) (acqu ired), right foot? Start Extra Depth Orthopedic Shoes, (1) Pair ., With (3) Pair Custom Heat Molded Multidensity Innersoles, Dx: NIDDM/PVD(E11.51), Hammertoe Foot Deformity(M20.41,M20.42), Preulcerative Skin Lesion(s)(L85.1), Wear, Daily, 365 days, 2, Refills 0.?? Notes: Patient Educated with: DIABETIC FOOT CARE INSTRUCTIONS.pdf (DIABETIC FOOT CARE INSTRUCTIONS.pdf)?? * Procedures:?Debride Nail 6-10:?Nail debridement?Due to the clinical pathology outlined in the exam findings, performance of this nail treatment is medically necessary as its management by an unskilled/untrained nonprofessional would put this patients foot and overall health at risk. Therefore, debridement to affected nail(s), as described in exam (?TA,?T4,?T5,?T6,?T7,?T9?), was performed exclusively by the physician of record to reduce/remove overall nail length, girth, thickness, subungual debris, and necrotic tissue, by manual and/or electrical means through the use of a nail nipper and/or dremel-type miter grinder operator, to a more viable healthy nail plate or bed tissue 6-10 nails in total. Silver nitrate was used for any petechial bleeding as necessary. Definitive antifungal treatment options, both pharmaceutical and surgical, have been reviewed and discussed with the patient. The patient solely prefers the use of intermittent/as needed professional debridement services for their nail condition and understands the need for additional periodic treatments to maintain effectiveness in symptomatic relief - 20766.?Keratoma Treatment:?Parring or Cutting of Benign Hyperkeratotic Lesion(s)?(-57) More than 4 Lesions - Due to the at risk nature of the patients medical condition as documented in the exam findings, performance of this keratoderma treatment is medically necessary as its management by an unskilled/untrained nonprofessional would put this patients foot and overall health at risk. Therefore, the benign hyperkeratotic lesions, ( 7 ) in total, locations as stated and described in the exam (?Medial plantar,?IPJ,?TA,?Medial plantar,?IPJ,?T5,?Plantar,?T9,?SUB MTH (s),?1,?B/L?,Plantar,?Heel(s),?B/L?), were pared, and/or cut utilizing a sterile 15 blade, tissue nippers, and/or power dremel instrumentation by the physician of record - 35620, Q8.?Wart Treatment:?Procedure?Verruca, as described in exam, were debrided to pin-point bleeding margins with sterile 15 surgical blade, silver nitrate chemocautery applied, recomm. immune-boosting meds such as zinc, recomm. follow up with topical chemosurgical agents, Pt defers any other forms of tx - 84483.? * Procedure Codes:?59166 DEBRI DE NAIL, 6 OR MORE, Modifiers: XS 72444 Wart Destruction, 1-14, Modifiers: XS 07533 TRIM SKIN LESIONS, OVER 4, Modifiers: XS , Q8 * Preventive Medicine:? ??Counseling:?Discussion:?-14: Office or other outpatient visit for the [...] custom heat-molded inserts was dispensed.? ??Screening/Special Tests:?Fall Risk?Screening:?No falls in the past year ?FALLS: Screening for Future Fall Risk?Have you had any falls with injury in the past year??No * Follow Up:?prn * Images: * Sign off status: Completed true * Provider:?Felice Pickard DPM Date:?2024 Generated for Emelina lucas/Vijaya/Marita on:?11/23/2024 11:35 AM EDT History and Physical Notes * HPI (History of Present Illness) Category Sub-Category Detail Notes Category Not es Toe pain Location: B/L feet Duration: several years Course: worse Aggravated by: shoes, any pressure Treatments: change in shoes At Risk footcare Pt States Last PCP Visit: Date: [facility] [place] Patient accompanied by, , MAYRA, who is physically present in exam room at time of visit Examination Category Sub-Category Detail Notes Category Not [...] Plantar, T9, SUB MTH (s), 1, B/L ,Plantar, Heel(s), B/L VERRUCA: NOW NO FURTHER SIGN of mosaic papule(s) with skin lines now evident and visible, plantar Forefoot, RIGHT Reveals a Single , multi-loculated , mosaic-patterned, round, raised, flat-topped, petechial bleeding papule(s), with cauliflower appearance and interruption of skin lines, pain to lateral compression, and size estimated at 6mm diameter, plantar Forefoot, LEFT Orthopedic FOOT MORPHOLOGY: Pes Planus stru cture, [...] Lower Extremity Neurological Exa m performed:: Yes Visual exam of foot performed:: Yes Date: 09/03/2024 ORIENTED: person, place, and t agata Footwear Evaluation Footwear Evaluation performe d:: Yes Ophthalmology Referral DIABETES EYE EXAM Procedure Perform ed:: Yes ?Date of Exam Performed: 05/25/2024 Diabetic Retinopathy Screening:: Yes Retinal Screening Performed:: Yes Findings of Diabetic Eye Exam:: no retin opathy Vascular DP PULSES (B): 0-1 B/L PT PULSES (B): 0/4, B/L CAPILLARY FILL TIME: delayed, all digits , B/L TEMPERTURE GRADIENT (C): decreased, cool to cool, proximal to distal, B/L TROPHIC CONDITION-TEXTURE/ELASTICITY/TURGOR/HAIR GROWTH (B): decreased, with sparse to absent hair gr owth, B/L EDEMA (C): absent, B/L CLAUDICATION (C): denies, B/L REST PAIN: denies, B/L PIGMENTATION: mottled, B/L Nails NAILS are: Elongated, overg rown, dystrophic, lytic, greater than 3mm thick, discolored and friable with crumbly malodorous subungual debris, with pain on palpation, TA, T4, T5, T6, T7, T9, all other nails not described with characteristics as possessing mycosis are elongated, overgrown, and dystrophic
== END 2024-11-23 11:58 | disposition home or self-care (01) ==
LOC: HO.HGI 11:08
PROVIDERS: PCP Internal Medicine; Visit Provider Nurse Practitioner Family
DX: Z01.818 Encounter for other preprocedural examination (principal); Z12.11 Encounter for screening for malignant neoplasm of colon; Z86.0101 Personal history of adenomatous and serrated colon polyps
CPT/HCPCS: 99024

== ENCOUNTER → 2024-11-23 11:07 | Outpatient (BNVA) | payer MEDICARE, SELFPAY | PROVIDERS: PCP Internal Medicine; Visit Provider Nurse Practitioner Family | DX: Z12.11 Encounter for screening for malignant neoplasm of colon (principal) | CPT/HCPCS: 99212 ==

== ENCOUNTER 2025-02-07 11:28 | Outpatient (AMB) | payer MEDICARE, SELFPAY ==
--- NOTE | 2025-02-07 11:47 | MHC.OFFVIS ---
Vital Signs 02/07/25 11:48 Height 5 ft 6 in Intake Visit Reasons: 6 mnts / MCI Accompanied by: Spouse Allergies No Known Allergies (No Known Allergies*) Allergy (Unverified 02/07/25 11:52) Medication List - Last Reconciled 02/07/25 by Paulette Bernal CNP albuterol sulfate 90 mcg/actuation 2 puffs inhalation Q6H PRN amlodipine 1 tab PO DAILY bisacodyl (Dulcolax (bisacodyl)) 20 mg (4 x 5 mg) PO ONCE 1 day bisacodyl (Dulcolax (bisacodyl)) 10 mg (2 x 5 mg) PO BEDTIME cyanocobalamin (vitamin B-12) 1,000 mcg PO DAILY donepezil 10 mg PO DAILY ysudnpoifyw-woamxxbit-ruovgcad 100-62.5-25 mcg (Trelegy Ellipta) 1 ea inhalation DAILY garlic 2,000 mg PO DAILY hydrochlorothiazide 1 tab PO DAILY ipratropium bromide intranasal ketoconazole 2% 1 appl topical MO loratadine (Claritin) 10 mg PO DAILY memantine 10 mg PO BID metformin ER 2 tabs PO DAILY@1700 multivitamin 1 tab PO DAILY omega 1-ibq-mdo-fish oil 1,000 (120-180) mg (Fish Oil) 1 cap PO DAILY polyethylene glycol 3350 (Miralax) 238 grams PO ONCE sertraline 25 mg PO DAILY simvastatin 1 tab PO BEDTIME umeclidinium 62.5 mcg/actuation (Incruse Ellipta) 1 puff inhalation DAILY HPI Comments Details: He was doing okay. Memory was about the same. His noted that he was losing a few words. He would get stuck for words during conversations at times. Mood was not too bad, no recent anger outbursts.?He noted that he would sometimes shaking his hands throughout the day and his legs at night for the last few months. Sleep was okay. He was still staying active, taking the dog for a walk 2-3x/day. No falls. He read the paper everyday.?Still not using hearing aids. Tinnitus was better some days than others, none at this time. Hx of short-term memory problems since 2020, repeating himself and having difficulty with names and simple words. Symptoms gradually worsening. Also complains of tinnitus, L > R, with some decreased hearing. 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 He uses oxygen via nasal cannula at night. [facility] Medical History (Updated 02/07/25 @ 11:51 by Paulette Bernal CNP) Frontotemporal lobar degeneration MCI (mild cognitive impairment) Early onset Alzheimer's dementia COPD (chronic obstructive pulmonary disease) CKD (chronic kidney disease) Diabetes mellitus HTN (hypertension) Surgical History Hx of colonoscopy Cataract Hx of appendectomy Social History Household Members: Family Housing: House Patient Tobacco Use Status: Former Tobacco user Tobacco use type: Cigarette Cigarettes Per Day: 1 Years Smoked: >50 service: No Current occupational status: retired Review of Systems Const Denies chills, Denies daytime sleepiness, Denies difficulty sleeping, Denies fatigue, Denies fever(s), Denies frequent falls, Denies headache(s), Denies increased appetite, Denies poor appetite, Denies snoring, Denies weakness, Denies weight gain and Denies weight loss Eyes Denies loss of vision ENT Denies vertigo, Denies dizziness, Denies headache(s) and Denies neck pain Card Denies chest pain at rest, Denies chest pain with activity, Denies syncope, Denies leg edema, Denies palpitations, Denies dyspnea and Denies dyspnea on exertion Resp Denies cough, Denies dyspnea, Denies dyspnea on exertion and Denies snoring GI Denies abdominal pain, Denies constipation, Denies heartburn, Denies diarrhea and Denies nausea Denies urinary frequency, Denies urinary incontinence and Denies urinary urgency Musc Denies abnormal gait, Denies back pain, Denies myalgias, Denies arthralgias, Denies neck pain, Denies numbness and Denies tingling Neuro Denies abnormal gait, Denies vertigo, Denies dizziness, Denies syncope, Denies frequent falls, Denies headache(s), Denies lack of coordination, Denies loss of vision, Reports memory loss, Denies numbness, Denies Other visual disturbances, Denies restless legs, Denies seizure-like activity, Denies tingling, Denies paresthesias, Denies tremor(s) and Denies weakness Psych Denies anxiety, Reports depression, Denies auditory hallucinations, Reports memory loss and Denies visual hallucinations Endo Denies fatigue and Denies palpitations Physical Exam Const Other: General Appearance:? normal, in no acute distress. Heart:? S1, S2 normal, no murmurs. Lungs:? clear anteriorly and posteriorly. Musculoskeletal:? normal. Extremities:? no edema. Psych:? alert, as below Neuro Other: Abnormal Neurological Findings:?MMSE 22/30. Some word finding difficulties. Hard of hearing.? Mental Status: alert, as below. Cranial Nerves: Pupils are equal, round, and reactive to light. External ocular muscles are intact. Visual balderrama are full, no ptosis. Face is symmetrical, no facial weakness or droop. Facial sensations are normal. Tongue protrudes in midline. Palate elevates symmetrically. Shoulder shrugging is normal Motor Examination: Normal muscle tone, bulk and strength. No atrophy or fasciculations. No drift of the extended upper extremities. DTR 2+. Plantars are flexor. Straight Leg Raisin degrees. Sensory Exam: Normal light touch, temperature, pinprick, vibration, and joint-position sensations. Rhomberg sign is absent. Coordination: No ataxia. No titubation. Kqprkr-jg-lcxx, cuev-wnqt-ovto test, and rapid alternating movements were normal. Gait Exam: Within normal limits. Cerebellar Signs: Dpgrwe-be-zxkv and ktih-tk-kqdf is normal. No dysdiadochokinesia. Extrapyramidal System: No tremor, rigidity with normal facial expressions. No bradykinesia. No bradyphrenia. Normal arm swing and posture. No propulsion or retropulsion. Speech: Normal, some word finding difficulties MMSE Level of Consciousness: Alert. Orientation: Knows correct year, month, date, day and season. Knows correct city, county and state. Knows correct location and floor. Registration: Able to register 3 objects. Attention: Unable to do serial 7's Recall: Able to recall 0 out of 3 objects. Language: Normal spontaneous speech, fluency, repetition, naming, comprehension, reading, and writing. Total Score: 22/30. Assessment & Plan Assessment & Plan (1) MCI (mild cognitive impairment): Code(s): G31.84 - Mild cognitive impairment of uncertain or unknown etiology Category: Medical Plan: Continue donepezil 10mg 1 tablet at bedtime Continue memantine 10mg 1 tablet twice a day Increase sertraline 50mg 1 tablet daily Stay physically and socially active. (2) Frontotemporal lobar degeneration: Code(s): G31.09 - Other frontotemporal neurocognitive disorder; F02.80 - Dementia in other diseases classified elsewhere, unspecified severity, without behavioral disturbance, psychotic disturbance, mood disturbance, and anxiety Category: Medical Plan . Medications: New donepezil 10 mg PO BEDTIME 90 tabs 1RF 90 days memantine 10 mg PO BID 180 tabs 1RF 90 days sertraline 50 mg PO DAILY 90 tabs 1RF 90 days Discontinued donepezil Discontinued Reason: Order 10 mg PO DAILY memantine Discontinued Reason: Order 10 mg PO BID Coding Level of Care Code Est Pt Level 4 (97112) Diagnoses MCI (mild cognitive impairment) G31.84 Frontotemporal lobar degeneration G31.09; F02.80
--- OUTSIDE RECORDS SUMMARY | 2025-02-07 12:34 | XMS_ITS | Clinical Summary ---
Author Organization [facility] Address [address] [place] [id number] Phone Care Team Providers Care Program Project Manager Name Role Phone Gabriel Fajardo MD Primary Care Provider Gabriel Fajardo MD Unavailable [phone] Melly Puente DPM, Erik Unavailable [phone] Noel Last MD Unavailable [phone] Bennett Daniels MD Unavailable [phone] Allergies No known active allergies Medications loratadine (CLARITIN) 10 mg tablet Take 10 mg by mouth daily. Active cyanocobalamin, vitamin B-12, 1000 MCG tablet Take 1,000 mcg by mouth daily. Active omega 4g-MYL-UPB-fish oil [phone] capsule Take 1 capsule by mouth daily. Active ONETOUCH ULTRA TEST Strp stripsIndication s:Type 2 diabetes mellitus without complication USE DIRECTED TO TEST BLOOD SUGAR ONCE DAILY 100 strip 5 02/13/20 22 Active ketoconazole (NIZORAL) 2 % shampoo Apply topically 2 (two) times a week. Apply to damp skin, lather, leave on 5 minutes, and rinse Active multivitamin per tablet Take 1 tablet by mouth daily. Active garlic 1,000 mg Cap Take 2,000 mg by mouth daily. Active mometasone-formo terol (DULERA) 100-5 mcg/actuation HFAA Inhale 2 puffs into the lungs every morning. Active memantine (NAMENDA) 10 MG tablet Take 1 tablet by mouth 2 (two) times a day. 05/02/20 23 Active TRELEGY ELLIPTA 100-62.5-25 mcg inhalation powder Inhale 1 puff into the lungs daily. 05/03/20 23 Active albuterol 90 mcg/actuation inhalerIndicatio ns:Acute exacerbation of COPD with asthma Inhale 2 puffs into the lungs every 6 (six) hours as needed for wheezing. 8 g 4 08/11/19 24 Active ipratropium (ATROVENT) 21 mcg (0.03 %) nasal spray 1 spray by Nasal route as needed. 12/16/19 24 Active fluticasone propionate (FLONASE) 50 mcg/actuation nasal sprayIndications :Allergic rhinitis, unspecified seasonality, unspecified trigger SPRAY 2 SPRAYS BY NASAL ROUTE DAILY NEEDED. 48 mL 3 08/23/19 25 Active hydroCHLOROthiaz lisa 12.5 MG tabletIndication s:Essential hypertension TAKE 1 TABLET BY MOUTH EVERY DAY 90 tablet 3 08/23/19 25 Active sertraline (ZOLOFT) 25 MG tablet Take 25 mg by mouth every morning. 08/09/19 25 Active amLODIPine (NORVASC) 5 MG tablet Take 5 mg by mouth daily. Active simvastatin (ZOCOR) 10 MG tabletIndication s:Hyperlipidemia TAKE 1 TABLET BY MOUTH EVERY DAY IN THE EVENING 90 tablet 3 10/29/19 25 Active amLODIPine (NORVASC) 10 MG tabletIndication s:Essential hypertension TAKE 1 TABLET BY MOUTH EVERY DAY 90 tablet 3 10/29/19 25 Active metFORMIN (GLUCOPHAGE-XR) 500 MG 24 hr tabletIndication s:Type 2 diabetes mellitus without complication TAKE 1 TABLET BY MOUTH EVERY DAY WITH BREAKFAST 90 tablet 01/25/20 25 Active metFORMIN (GLUCOPHAGE-XR) 500 MG 24 hr tabletIndication s:Type 2 diabetes mellitus without complication Take 1 tablet (500 mg total) by mouth daily with breakfast. 90 tablet 10/29/19 25 025 Discontinued Active Problems Problem Noted Date Diagnosed Date Allergic rhinitis 11/25/2017 Tubular adenoma of colon 11/25/2017 Overview (01/02/2018): Overview: CN 02/04/14, repeat 2019 Chronic obstructive pulmonary disease (COPD) Cough 10/14/2017 Type 2 diabetes mellitus 10/14/2017 Type 2 diabetes mellitus without complication Essential hypertension 10/14/2017 Hammer toes of both feet 10/14/2017 Hypertension 10/14/2017 Hyperlipidemia 10/14/2017 Shadow of lung 10/14/2017 Other hammer toe(s) (acquired), left foot 2017 Tobacco use disorder 10/14/2017 Diabetes mellitus type 2, uncomplicated 10/15/19 18 Pulmonary emphysema 06/02/2017 Tobacco abuse 06/02/2017 Encounters Date Type Department Care Team Description 01/22/2025 Refill [facility] Internal Medicine [address] [facility] [place] [address] Gabriel Fajardo MD Medication Refill from Last 3 Months Immunizations Immunization Administration Dates Next Due COVID-19 (Pre-05/12) Moderna Vaccine, Bivalent 6mo+ 05/06/2022 COVID-19 (Pre-05/12) Moderna Vaccine, mRNA, PF 04/13/2022,10/11/2020,09/13/2020 Influenza High-Dose Quadriva lent Preservative Free IM 05/03/2023,04/16/2022,04/16/2021,03/14 Influenza High-Dose Trivalen t Preservative Free IM 04/01/2024,03/27/2018,04/11/2016,05/13 Influenza Trivalent Adjuvant ed Preservative free IM 03/12/2019 Influenza Trivalent Preserva tive Free IM 03/21/2020,05/20/2016 Influenza Trivalent w/ Preservative IM 5 Influenza, Unspecified Formulation 05/03/2011 Pneumococcal conjugate PCV13 01/10/2015 Pneumococcal polysaccharide PPSV23 05/03/2011, Pneumococcal, Unspecified Formulation 05/20/2016 RSV Vaccine (monovalent, adjuvanted) 04/23/2024 Td (adult) 5 Lf Tetanus Toxo id, PF, Adsorbed 08/21/2003 Td (adult),2 Lf Tetanus Toxo id, PF, Adsorbed 03/12/2018 Tdap 05/07/2012 Zoster live 05/21/2012 Zoster recombinant 07/25/2019,03/23/2019 Family History Medical History Relation Comments No Known Problems Father at 96 years of age Hypertension Mother Relation Status Comments Daughter Alive Father Mother Son Alive Social History Tobacco Use Types Packs/Day Years Used Date Smoking Tobacco: Former Cigarettes 0 12/28/1961 - 08/05/2022 Smokeless Tobacco: Never Tobacco Cessation:Counseling Given: Not Answered Comments:0-2 cigarettes a day Alcohol Use Standard Drinks/Week Comments No 0 (1 standard drink = 0.6 oz pur e alcohol) Education Answer Date Recorded Are you interested in more education? Not on shira e 11/15/2022 Are you concerned about learning? Not on file 11/15/2022 No 11/15/2022 No 11/15/2022 Digital Access Answer Date Recorded No 12/16/2022 No 12/16/2022 Reliable internet access at home? Not on file 12/16/2022 Device with a working camera? Not on file Intimate Partner Violence Answer Date R ecorded Denied Basic Needs Not on file 09/27/2024 In the past 12 months have y ou been in a relationship with a person who hurts, threatens, or tries to control you? No 09/27/2024 Worried food would run out Not on file 09/27 In the past 12 months have y ou been in a relationship with a person who hurts, threatens, or tries to control you? No 09/27/2024 Sex and Gender Information Value Date Recorded Sex Assigned at Male 03/10/2021 9:41 AM EDT Legal Sex Male 10:37 PM EDT Gender Identity Male 03/10/2021 9:41 AM EDT Sexual Orientation Straight 11/29/2021 10 :31 PM EDT Last Filed Vital Signs Vital Sign Reading Time Taken Comments Blood Pressure 143/48 09/27/2024 11:01 AM EDT Pulse 74 09/27/2024 11:01 AM EDT Temperature 36.1 C (96.9 F) 09/27/2024 11:01 AM EDT Respiratory Rate 20 09/27/2024 11:01 AM EDT Oxygen Saturation 96% 09/27/2024 11:01 AM EDT Inhaled Oxygen Concentration - - Weight 69.1 kg (152 lb 6.4 oz) 09/27/2024 11:01 AM EDT Height 166.3 cm (5' 5.47 ) 09/27/2024 11:01 AM E DT Body Mass Index 25 09/27/2024 11:01 AM EDT Plan of Treatment Upcoming Encounters Date Type Department Care Team (Late st Contact Info) Description 02/23/2025 11:30 AM EDT Office Visit [facility] Internal Medicine [address] [place] [address] Gabriel Fajardo MD [address] [place] [address] [email or web address] Maintenance Due Date Last Done Comments SMOKING Hx and SMOKELESS TOBACCO SCREENING 1959 COLOGUARD 1991 FIT TEST 1991 FOBT 1991 SIGMOIDOSCOPY 1991 VIRTUAL COLONOSCOPY 1991 COLONOSCOPY 03/02/2024 03/02/2019, 02/04/2014 COLORECTAL CANCER SCREENING 03/02/2024 COVID-19 VACCINE ( season) 2024 05/03/2023, 05/06/2022, 04/13/2022, Additional history exists URINE MICROALBUMIN/CREATININE RATIO 05/30/2024 05/30/2023, 05/30/2023, 09/18/2022, Additional history exists DIABETIC EYE EXAM 01/06/2025 01/07/2024, , 11/01/2022, Additional history exists HEMOGLOBIN A1C 01/23/2025 07/26/2024, 03/21, 09/16/2023, Additional history exists BLOOD PRESSURE 03/30/2025 09/27/2024 LIPID PANEL 04/01/2025 04/01/2024, 05/21, 05/30/2023, Additional history exists CREATININE LEVEL 09/27/2025 09/27/2024, 12/2024, 04/01/2024, Additional history exists DEPRESSION SCREENING 09/27/2025 09/27/2024, 09/17/19 23 POTASSIUM LEVEL 09/27/2025 09/27/2024, 12/2024, 04/01/2024, Additional history exists Adult Td,Tdap Booster 03/12/2028 03/12/2018 , 05/07/2012, 08/21/2003 PNEUMOCOCCAL VACCINES (50+ years) Completed 01/10/2015, 05/03/2011, 06/20/2002 ZOSTER VACCINES Completed 07/25/2019, 09/2018, 05/21/2012 HEPATITIS C SCREENING Completed 03/07/2020, 020 RSV VACCINE Completed 04/23/2024 HEPATITIS A VACCINES Aged Out No long er eligible based on patient's age to complete this topic HIB VACCINES Aged Out No longer eligi ble based on patient's age to complete this topic MENINGOCOCCAL VACCINES (ACWY) Aged Out No longer eligible based on patient's age to complete this topic MENINGOCOCCAL VACCINES (B) Aged Out N o longer eligible based on patient's age to complete this topic Medical Devices Not on file Procedures Procedure Name Priority Date/Time Associated Diagnosis Comments COMPREHENSIVE METABOLIC PANEL Routine 09/27/2024 12:02 PM EDT Benign essential hypertension 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, without long-term current use of insulin HEMOGLOBIN A1C Routine 07/26/2024 9:58 AM EST Type 2 diabetes mellitus with microalbuminuria, without long-term current use of insulin LIPID PANEL Routine 04/01/2024 12:08 PM EDT Type 2 diabetes mellitus with microalbuminuria, without long-term current use of insulin DIABETES EYE EXAM FOR RESULT ENTRY ONLY Routine 01/07/2024 MICROALBUMIN/CREATININ E RATIO, RANDOM URINE Routine 05/30/2023 9:30 AM EST Type 2 diabetes mellitus with microalbuminuria, without long-term current use of insulin HEPATITIS C ANTIBODY, QUALITATIVE Routine 03/07/2020 8:56 AM EDT Need for hepatitis C screening test COLONOSCOPY FOR RESULT ENTRY ONLY Routine 03/02/2019 from Last 3 Months or Most Recently Relevant to Health Maintenance Results * (ABNORMAL) Comprehensive metabolic panel (09/27/2024 12:02 PM EDT) SODIUM 140 133 - 146 mmol/L [facility] POTASSIUM 3.8 3.3 - 5.1 mmol/L [facility] CHLORIDE 99 96 - 108 mmol/L [facility] CO2 24 21 - 35 mmol/L [facility] BUN 40(H) 6 - 19 mg/dL [facility] CREATININE 2.30(H) 0.5 - 1.5 mg/dL [facility] GLUCOSE 131(H) 70 - 99 mg/dL [facility] ALBUMIN 4.9(H) 3.9 - 4.8 g/dL [facility] TOTAL PROTEIN 7.9 6.5 - 8.0 g/dL [facility] CALCIUM 9.6 8.4 - 10.3 mg/dL [facility] ALKALINE PHOSPHATASE 146(H) 39 - 117 U/L [facility] TOTAL BILIRUBIN 0.4 0.0 - 1.2 mg/dL [facility] AST 43(H) 0 - 37 U/L [facility] ALT 46(H) 0 - 40 U/L [facility] GLOBULIN 3.0 1 - 4.8 g/dL [facility] EGFR 28(L) >59 mL/min/1.7 3m2 [facility] Comment:Estimated glomerular filtration rate calculated using the CKD-EPI refit equation. ANION GAP 21(H) 10 - 20 mmol/L [facility] Blood 09/27/2024 12:0 2 PM EDT 09/27/2024 12:05 PM EDT us Gabriel Fajardo MD LAB BLOOD ORDERABLES Final Re sult [facility] [address] [place], [place] [id number] * (ABNORMAL) Hemoglobin A1c (07/26/2024 9:58 AM EST) HEMOGLOBIN A1C 6.0(H) 4.3 - 5.8 % [facility] Blood 07/26/2024 9:58 AM EST 07/26/2024 10:00 AM EST Gabriel Fajardo MD LAB BLOOD ORDERABLES Final Re sult Performing Organization Address [facility] Co de Phone Number [address] [address] * (ABNORMAL) Lipid panel (04/01/2024 12:08 PM EDT) HDL 41 mg/dL [facility] Comment: Interpretation <40 mg/dL: Low HDL cholesterol (major risk factor for CHD) Greater than or equal to 60 mg/dL: High HDL cholesterol ( negative risk factor for CHD) HDL - cholesterol is affected by a number of factors, e.g. smoking, excerise, hormones, sex and age. CHOLESTEROL 171 0 - 240 mg/dL [facility] TRIGLYCERIDES 234(H) 30 - 160 mg/dL [facility] LDL 83 50 - 129 mg/dL [facility] Comment: LDL levels in terms of risk for coronary heart disease: <100 mg/dL: Optimal 100-129 mg/dL: Near or above optimal 130-159 mg/dL: Borderline high 160-189 mg/dL: High >190 mg/dL: Very High CARDIAC RISK RATIO 4.2 3.4 - 5.0 C [facility] Blood 04/01/2024 12:0 8 PM EDT 04/01/2024 12:17 PM EDT Gabriel Fajardo MD LAB BLOOD ORDERABLES Final Re sult Performing Organization Address City/[facility] Co de Phone Number [address] [address] * DIABETES EYE EXAM FOR RESULT ENTRY ONLY (01/07/2024) EYE EXAM no retinopathy Historical [facility] Final Result * (ABNORMAL) Microalbumin/creatinine ratio, random urine (05/30/2023 9:30 AM EST) URINE MICROALBUMIN 64.9(H) 0 - 2.3 mg/dL [facility] URINE CREATININE 97 mg/dL [employer] [facility] MICROALB/CRE RATIO 669.1(H) 0 - 20 mg/g Cre [facility] Urine (Urine) 05/30/2023 9:3 0 AM EST 05/30/2023 9:56 AM EST Gabriel Fajardo MD URINE ORDERABLES Final Result Performing Organization Address [facility]/ZIP Co de Phone Number [address] [address] * Hepatitis C antibody, qualitative (03/07/2020 8:56 AM EDT) HCV NON-REACTIV E NON-REACTI VE [facility] Blood 03/07/2020 8:56 AM EDT 03/07/2020 10:57 AM EDT Gabriel Fajardo MD LAB BLOOD ORDERABLES Final Re sult Performing Organization Address [facility] Co de Phone Number [address] [phone] * COLONOSCOPY FOR RESULT ENTRY ONLY (03/02/2019) Historical Provider HEALTH MAINTENANCE Final Result from Last 3 Months or Most Recently Relevant to Health Maintenance Insurance MEDICARE PART A & B Member Subscriber Plan / Payer (Ef fective 2011-Present) Name:Justin Barclay Member ID:[id number] Relation to Subscriber:Self Name:Justin Barclay Subscriber ID:[id number] Payer ID:[id number] Group ID:Not on file Type:Medicare Address: [facility] [employer] [facility]. [address] [place] [address] [place] [phone] evly MEDEX SUPPLEMENT MEDICARE PART A & B evly MEDEX SUPPLEMENT MEDICARE PART A & B [place] MEDEX SUPPLEMENT MEDICARE PART A & B evly MEDEX SUPPLEMENT MEDICARE PART A & B Member Subscriber Plan / Payer ( fective 2011-Present) Name:Justin Barclay Member ID:[id number] Relation to Subscriber:Self Name:Justin Barclay Subscriber ID:[id number] Payer ID:[id number] Group ID:Not on file Type:Medicare Address: [facility] [employer] [address] [place] MEDEX SUPPLEMENT MEDICARE PART A & B evly MEDEX SUPPLEMENT MEDICARE PART A & B evly MEDEX SUPPLEMENT MEDICARE PART A & B evly MEDEX SUPPLEMENT MEDICARE PART A & B evly MEDEX SUPPLEMENT Care Teams Program Project Manager Relationship Specialty Start Date End Date Gabriel Fajardo MD [address] [place] [address] [email or web address] PCP - General 05/08/17 Gabriel Fajardo MD [address] [place] [address] [email or web address] Insurance Assigned Provider 10/25/23 Felice Pickard DPM [address] [place] [id number] Podiatry 09/07/19 Noel Last MD [address] [place] [address] [address] [place] [address] Ophthalmology 03/10/20 Bennett Daniels MD [address] [place] [id number] Pulmonary Disease 03/12/21 Additional Source Comments The information contained in this document represents components of the legal health record. It is not the complete legal health record.[facility]
--- OUTSIDE RECORDS SUMMARY | 2025-02-07 12:34 | XMS_ITS | Clinical Summary ---
Author Organization [facility] Address [address] [phone] Phone Care Team Providers Care [employer] Manager Name Role Phone Gabriel Fajardo MD Primary Care Provider [phone] Allergies No known active allergies Medications amLODIPine [...] puff 1 (one) time each day Active Elida-3 Fatty Acids 1400 MG capsule Take 1 [...] mellitus, not otherwise specified 08/18 Dyslipidemia 08/18/2023 Encounters Date Type Department Care Team Description 12/09/2024 10:20 AM EDT Office Visit [facility] [address] [phone] Sebastián Timmons MD Stage 3a chronic kidney disease (HCC) (Primary Dx); Proteinuria, not otherwise specified; Nephrolithiasis; Hypertension; Dyslipidemia; Diabetes mellitus, not otherwise specified (HCC); Cyst of kidney 12/09/2024 Orders Only [facility] [address] [phone] Sebastián Timmons MD Stage 3a chronic kidney disease (HCC); Proteinuria, not otherwise specified; Nephrolithiasis; Hypertension; Dyslipidemia; Diabetes mellitus, not otherwise specified (HCC); Cyst of kidney 12/01/2024 Orders Only [facility] [address] [phone] Sebastián Timmons MD from Last 3 Months Family History Medical History Relation Comments Autosomal [...] Sign Reading Time Taken Comments Blood Pressure 130/50 12/09/2024 10:08 AM EDT Pulse 82 12/09/2024 10:08 AM EDT Temperature - - Respiratory Rate - - Oxygen Saturation 96% 12/09/2024 10:08 AM EDT Inhaled Oxygen Concentration - - Weight 70.3 kg (155 lb) 12/09/2024 10:08 AM EDT Height 167.6 cm (5' 6 ) 04/13/2024 10:11 AM EDT Body Mass Index 25.02 04/13/2024 10:11 AM EDT Plan of Treatment Upcoming Encounters Date Type Department Care Team (Late st Contact Info) Description 06/09/2025 10:40 AM EST Office Visit [facility] [address] [phone] Sebastián Timmons MD [address] [phone] Health Maintenance Due Date Last Done Comments Diabetes: Ophthalmology Exam 06/18/2023 Diabetes: Pedal Pulse Checked 06/18/2023 Diabetes: Sensory Foot Exam 06/18/2023 Diabetes: Visual Foot Exam 06/18/2023 Diabetes: Hemoglobin A1C 08/30/2023 05/30/2023 Influenza Vaccine (#1) 2025 4, 03/21/2020, 03/12/2019, Additional history exists Pneumococcal Vaccine: 50+ Years Completed 05/20/2016, 01/10/2015, 05/03/2011, Additional history exists Hepatitis B Vaccine Aged Out No longe r eligible based on patient's age to complete this topic Procedures Procedure Name Priority Date/Time Associated Diagnosis Comments NETTE AND PE, SERUM Routine 12/01/2024 11: 14 AM EDT PTH, INTACT Routine 12/01/2024 11:14 AM EDT MAGNESIUM Routine 12/01/2024 11:14 AM EDT PHOSPHATE ( PHOSPHORUS) Routine 12/01/2024 11:14 AM EDT URIC ACID Routine 12/01/2024 11:14 AM EDT VITAMIN D 25 HYDROXY Routine 12/01/2024 11:14 AM EDT PROTEIN / CREATININE RATIO, URINE Routine 12/01/2024 11:14 AM EDT COMPREHENSIVE METABOLIC PANEL Routine 12/01/2024 11:14 AM EDT CBC AND DIFFERENTIAL Routine 12/01/2024 11:14 AM EDT EXT RESULT ENTRY Routine 05/30/2023 from Last 3 Months or Most Recently Relevant to Health Maintenance Results * (ABNORMAL) NETTE and PE, Serum (12/01/2024 11:14 AM EDT) IgG 561(L) 603 - 1,613 mg/dL [facility] IgA 190 61 - 437 mg/dL [facility] IgM 59 15 - 143 mg/dL [facility] Serum Albumin 4.1 2.9 - 4.4 g/dL [facility] Fnwbf-7-Ynllrujk 0.2 0.0 - 0.4 g/dL [facility] Rtfru-7-Ppmnnxvt 0.8 0.4 - 1.0 g/dL [facility] Beta Globulin 1.1 0.7 - 1.3 g/dL [facility] Gamma Globulin in Serum 0.4 0.4 - 1.8 g/dL [facility] M-Ace Serum Not Observed Not Observed g/dL [facility] Globulin, Total 2.6 2.2 - 3.9 g/dL [facility] Albumin/Globulin Ratio Calculated 1.6 0.7 - 1.7 [facility] Immunofixation Result, Serum Comment [facility] Comment: The immunofixation pattern appears unremarkable. Evidence of monoclonal protein is not apparent. Please note Comment [facility] Comment: Protein electrophoresis scan will follow via computer, mail, or screen printing paster delivery. PDF . [facility] [phone] 12/01/2024 11:1 4 AM EDT 12/01/2024 Sebastián Timmons MD LAB BLOOD ORDERABLES Final Re sult Performing Organization Address [facility] Co de Phone Number [facility] [address] [place] [address] * (ABNORMAL) Protein, Total, Random Urine w/Creatinine (Protein/Creat Ratio) (12/01/2024 11:14 AM EDT) Creatinine, Ur 88.2 Not Estab. mg/dL [facility] Protein, Ur 108.6 Not Estab. mg/dL [facility] Urine Protein/Creati nine Ratio 1,231(H) 0 - 200 mg/g [facility] 12/01/2024 11:1 4 AM EDT 12/01/2024 Sebastián Timmons MD LAB URINE ORDERABLES Final Re sult Performing Organization Address [facility] de Phone Number [facility] [address] [place] [address] * Vitamin D 25 Hydroxy (12/01/2024 11:14 AM EDT) Vitamin D, 25-OH, Total 38.1 30.0 - 100.0 ng/mL [facility] Comment: Vitamin D deficiency has been defined by the [place] of Medicine and an Endocrine Society practice guideline as a level of serum 25-OH vitamin D less than 20 ng/mL (1,2). The Endocrine Society went on to further define vitamin D insufficiency as a level between 21 and 29 ng/mL (2). 1. IOM ([place]ers of Medicine). 2010. Dietary reference intakes for calcium and D. [place]: The National Academies Press. 2. Mauricio MF, Trish GARCIA, Jose L ABDI, et al. Evaluation, treatment, and prevention of vitamin D deficiency: an Endocrine Society clinical practice guideline. JCEM. 2010; 96(7):1911-30. 12/01/2024 11:1 4 AM EDT 12/01/2024 us Sebastián Timmons MD LAB BLOOD ORDERABLES Final Re sult [facility] [address] [place] [address] * (ABNORMAL) CBC and Differential (12/01/2024 11:14 AM EDT) WBC 9.1 3.4 - 10.8 x10E3/uL [facility] RBC 3.99(L) 4.14 - 5.80 x10E6/uL [facility] Hemoglobin 11.9(L) 13.0 - 17.7 g/dL [facility] Hematocrit 36.4(L) 37.5 - 51.0 % [facility] MCV 91 79 - 97 fL [facility] MCH 29.8 26.6 - 33.0 pg [facility] MCHC 32.7 31.5 - 35.7 g/dL [facility] RDW 12.5 11.6 - 15.4 % [facility] Platelets 245 150 - 450 x10E3/uL [facility] Neutrophils Relative 64 Not Estab. % [facility] Lymphocytes Relative 22 Not Estab. % [facility] Monocytes 10 Not Estab. % [facility] Eosinophils Relative 3 Not Estab. % [facility] Basophils Relative 0 Not Estab. % [facility] Neutrophils Absolute 5.9 1.4 - 7.0 x10E3/uL [facility] Lymphocytes Absolute 2.0 0.7 - 3.1 x10E3/uL [facility] Monocytes Absolute 0.9 0.1 - 0.9 x10E3/uL [facility] Eosinophils Absolute 0.2 0.0 - 0.4 x10E3/uL [facility] Basophils Absolute 0.0 0.0 - 0.2 x10E3/uL [facility] Immature Granulocytes 1 Not Estab. % [facility] Immature Grans (Absolute) 0.1 0.0 - 0.1 x10E3/uL [facility] 12/01/2024 11:1 4 AM EDT 12/01/2024 Sebastián Timmons MD LAB BLOOD ORDERABLES Final Re sult [facility] [address] [place] [address] * Uric Acid (12/01/2024 11:14 AM EDT) Uric Acid 8.2 3.8 - 8.4 mg/dL [facility] Comment:Therapeutic target f or gout patients: <6.0 12/01/2024 11:1 4 AM EDT 12/01/2024 Sebastián Timmons MD LAB BLOOD ORDERABLES Final Re sult Performing Organization Address [facility] Co de Phone Number [facility] [address] [place] [address] * Phosphorus (12/01/2024 11:14 AM EDT) Phosphorus 4.0 2.8 - 4.1 mg/dL [facility] 12/01/2024 11:1 4 AM EDT 12/01/2024 Sebastián Timmons MD LAB BLOOD ORDERABLES Final Re sult Performing Organization Address [facility] de Phone Number [facility] [address] [place] [address] * (ABNORMAL) PTH, Intact (12/01/2024 11:14 AM EDT) PTH 120(H) 15 - 65 pg/mL [facility] 12/01/2024 11:1 4 AM EDT 12/01/2024 us Sebastián Timmons MD LAB BLOOD ORDERABLES Final Re sult Performing Organization Address [facility] de Phone Number [facility] [address] [place] [address] * (ABNORMAL) Magnesium (12/01/2024 11:14 AM EDT) Magnesium 2.4(H) 1.6 - 2.3 mg/dL [facility] 12/01/2024 11:1 4 AM EDT 12/01/2024 us Sebastián Timmons MD LAB BLOOD ORDERABLES Final Re sult Performing Organization Address [facility] Co de Phone Number [facility] [address] [place] [address] * (ABNORMAL) Comprehensive Metabolic Panel (12/01/2024 11:14 AM EDT) [facility] Glucose 120(H) 70 - 99 mg/dL [facility] BUN 32(H) 8 - 27 mg/dL [facility] Creatinine 2.09(H) 0.76 - 1.27 mg/dL [facility] eGFR CKD-EPI CR 2020 32(L) >59 mL/min/1.7 3 [facility] BUN/Creatinine Ratio 15 10 - 24 [facility] Sodium 143 134 - 144 mmol/L [facility] Potassium 4.5 3.5 - 5.2 mmol/L [facility] Chloride 103 96 - 106 mmol/L [facility] Bicarbonate (CO2) 20 20 - 29 mmol/L [facility] Calcium 9.1 8.6 - 10.2 mg/dL [facility] Total Protein 6.7 6.0 - 8.5 g/dL [facility] Albumin 4.6 3.8 - 4.8 g/dL [facility] Globulin 2.1 1.5 - 4.5 g/dL [facility] Total Bilirubin 0.4 0.0 - 1.2 mg/dL [facility] Alkaline Phosphatase 145(H) 44 - 121 IU/L [facility] AST (SGOT) 29 0 - 40 IU/L [facility] ALT (SGPT) 35 0 - 44 IU/L [facility] 12/01/2024 11:1 4 AM EDT 12/01/2024 us Sebastián Timmons MD LAB BLOOD ORDERABLES Final Re sult [facility] [address] [place] [address] * (ABNORMAL) EXT RESULT ENTRY (05/30/2023) Sodium [...] 9.5 8.7 - 10.7 mg/dL eGFR Non-Afr Togolese 41 Total Bilirubin 0.5 MG/DL ALT (SGPT) 55 U/L AST (SGOT) 58 U/L Alkaline Phosphatase 112 U/L Hemoglobin A1C 6.2(A) 4.0 - 6.0 05/30/2023 Historical Provider LAB BLOOD ORDERABLES Edit ed Result - Final from Last 3 Months or Most Recently Relevant to Health Maintenance Insurance Medicare [facility] Medicare [facility] Care Teams [employer] Relationship Specialty Start Date End Date Gabriel Fajardo MD [address] [place] [phone] PCP - General Internal Medicine 06/05/23
--- OUTSIDE RECORDS SUMMARY | 2025-02-07 12:34 | XMS_ITS | Clinical Summary ---
Author Organization [address] [facility] Address [address] [place] [address] Phone Care Team Providers Care Noodle Maker Name Role Phone Gabriel Fajardo MD Primary Care Provider [phone] Allergies No known active allergies Medications albuterol HFA (PROAIR HFA ; PROVENTIL HFA ; VENTOLIN HFA) 90 mcg/actuation inhaler Inhale 2 puffs by mouth. 2 Active amLODIPine (NORVASC) 10 mg tablet Take 1 tablet (10 mg total) by mouth 1 (one) time each day. 4 Active DOCOSAHEXAENOIC ACID ORAL Take 1 capsule by mouth daily. Active cyanocobalamin (VITAMIN B-12) 500 mcg tablet Take 1 tablet (500 mcg total) by mouth 1 (one) time each day. Active olmesartan (BENICAR) 20 mg tablet Take 2 tablets (40 mg total) by mouth 1 (one) time each day. Active loratadine (CLARITIN) 10 mg tablet Take 1 tablet (10 mg total) by mouth 1 (one) time each day. Active hydroCHLOROthiaz lisa (HYDRODIURIL) 25 mg tablet Take 1 tablet (25 mg total) by mouth 1 (one) time each day. Active metFORMIN (GLUCOPHAGE) 500 mg tablet Take 1 tablet (500 mg total) by mouth 2 (two) times a day with meals. Active simvastatin (ZOCOR) 10 mg tablet Take 1 tablet (10 mg total) by mouth at bedtime. 4 Active omega-3 acid ethyl esters (LOVAZA) 1 gram capsule Take by mouth. [place]-3 Fatty Acids (FISH OIL TRIPLE STRENGTH) 1400 MG Cap Active donepezil ODT (ARICEPT ODT) 10 mg dispersible tablet Dissolve 1 tablet (10 mg total) on top of the tongue at bedtime. Active memantine (NAMENDA) 10 mg tablet Take 1 tablet (10 mg total) by mouth 2 (two) times a day. Active omega-3 (Fish OiL) 360-1,200 mg capsule Take 1 capsule (1,200 mg total) by mouth 1 (one) time each day. Active garlic 1,000 mg capsule Take by mouth. Active Trelegy Ellipta 100-62.5-25 mcg inhalerIndicatio ns:Emphysema, unspecified ([facility] V24, [facility] V28) INHALE 1 PUFF INTO THE LUNGS DAILY FOR 30 DAYS. 60 each 11 5 Active Active Problems Problem Noted Date Diagnosed Date Pulmonary nodule 08/27/2022 Overview (05/21/2024): Last Assessment & Plan: 77 y/o gentleman who is part of [facility] had a Lung RADS 4A finding on CT scan from May 08, 2022. 1. His most recent CT scan performed on 08/24/22 showed resolution of nodules within the the left upper lobe and no new or enlarging pulmonary nodules seen. Based upon these findings, the patient will be referred back to the [facility] for his annual CT scan to be done in April 2023. All of this was discussed with Mr. Barclay and his and they are in agreement with the plan. 2. He is instructed to call the office with any questions or concerns. Lab test negative for COVID-19 virus 11/16/2020 Tubular adenoma of colon 11/25/2017 Overview (05/21/2024): CN 02/04/14, repeat 2019 Allergic rhinitis 11/25/2017 Essential hypertension 10/14/2017 Diabetes mellitus type 2, un complicated ([facility] V24, [facility] V28) 10/14/2017 Hyperlipidemia 10/14/2017 Tobacco use disorder 10/14/2017 Chronic obstructive pulmonar y disease (COPD) ([facility] V24, [facility] V28) 06/02/2017 Immunizations Name Administration Dates Next Due Influenza Quadravalent, 0.5m l (Fluzone High-dose) 65yo and older 05/03/2023,04/16/2022,04/16/2021,03/14 Influenza trivalent, 0.5mL ( Fluad) 65yo and older 03/12/2019 Influenza trivalent, 0.5mL ( Fluzone High-dose) 65yo and older 04/01/2024,03/27/2018,04/11/2016,05/13 Influenza trivalent, 0.5mL, preservative free (Fluarix; FluLaval; Fluzone) ages 6mo and older (Afluria) 3 years and older 03/21/2020,05/20/2016 Influenza trivalent, with pr eservative (Fluzone; Afluria) 6mo and older 05/17/2015 Influenza, Unspecified 05/03/2011 Moderna SARS-CoV-2 COVID-19, mRNA, LNP-S, preservative free 04/13/2022,05/30/2021 Pneumococcal conjugate 13 va lent (Prevnar 13, PCV13) 2mo and older 01/10/2015 Pneumococcal polysaccharide 23 valent (Pneumovax 23) 2yo and older 05/03/2011,06/20/2002 Pneumococcal, Unspecified 05/20/2016 Td Tetanus diptheria (Tdvax) 7yo and older 03/12/2018 Td Tetanus diptheria, preser vative free (Tenivac) 7yo and older 08/21/2003 Tdap Tetanus diptheria acell ular pertussis (Boostrix; Adacel) 7yo and older 05/07/2012 Zoster Live 05/21/2012 Zoster recombinant (Shingrix ) 19yo and older 07/25/2019,03/23/2019 Surgical History Surgery Date Site/Laterality Comments OTHER SURGICAL HISTORY 2008 PROCEDURE: PULMONOLOGY BRONCHOSCOPY COLONOSCOPY 02/04/2014 PROCEDURE: HISTORICAL COLONOSCOPY; COMMENT: recall 5 years APPENDECTOMY 1963 PROCEDURE: HISTORICAL APPENDECTOMY Medical History Medical History Date Comments Tobacco abuse 06/02/2017 DX:Tobacco abuse Chronic obstructive pulmonar y disease (COPD) ([facility] V24, [facility] V28) 06/02/2017 DX:Chronic obstructi ve pulmonary disease (COPD) ([facility]) Diabetes mellitus type 2, uncomplicated ([facility] V24, [facility] V28) 11/25/2017 DX:Diabetes mellitus type 2, uncomplicated ([facility]) Hyperlipidemia 11/25/2017 DX:Hyperlipidemi a Allergic rhinitis 11/25/2017 DX:Allergic rh initis Hypertension 11/25/2017 DX:Hypertension History of hemoptysis 11/25/2017 DX:History of hemoptysis Tubular adenoma of colon 11/25/2017 DX:Tubu lar adenoma of colon; COMMENT: CN 02/04/14, repeat 2019 Family History Medical History Relation Name Comments Other cancer Father Relation Name Status Comments Father Mother Social History Tobacco Use Types Packs/Day Years Used Date Smoking Tobacco: Former Cigarettes Q uit: 05/21/2022 Smokeless Tobacco: Never Alcohol Use Standard Drinks/Week Comments Not Currently 4 (1 standard drink = 0.6 oz pur e alcohol) Sex and Gender Information Value Date Recorded Sex Assigned at Not on file Legal Sex Male 11:56 PM EST Gender Identity Not on file Sexual Orientation Not on file Obstetrics History Last Filed Vital Signs Vital Sign Reading Time Taken Comments Blood Pressure 130/56 08/24/2024 10:52 AM EST Pulse 83 08/24/2024 10:52 AM EST Temperature 36.6 C (97.9 F) 08/24/2024 10:52 AM EST Respiratory Rate 20 08/24/2024 10:52 AM EST Oxygen Saturation 91% 08/24/2024 10:52 AM EST Inhaled Oxygen Concentration - - Weight 70.8 kg (156 lb) 08/24/2024 10:52 AM EST Height 167.6 cm (5' 6 ) 08/24/2024 10:52 AM EST Body Mass Index 25.18 08/24/2024 10:52 AM EST Plan of Treatment Upcoming Encounters Date Type Department Care Team (Late st Contact Info) Description 03/03/2025 11:30 AM EDT Office Visit Pulmonolgy - [place] [address] [facility] [address] [place] [id number] Bennett Daniels MD [address] [facility] [address] [place] [address] Health Maintenance Due Date Last Done Comments Diabetes: Annual Foot Exam 01/29/1955 Diabetes: Annual Retina Eye Exam 01/29/1956 Colorectal Cancer Screening: Colonoscopy 06/23/2022 02/04/2014 Falls Risk Assessment 06/23/2022 Medicare Annual Wellness Visit 06/23/2022 Social Influencers of Health Screening 06/23/2022 Diabetes: Blood Sugar Control Test (HGBA1C) 07/04/2022 COVID-19 Vaccine ( season) 2024 05/03/2023, 05/06/2022, 04/13/2022, Additional history exists Diabetes: Annual Urine Albumin-Creatinine Ratio (uACR) 05/30/2024 05/30/2023, 09/18/2022, 04/09/2022, Additional history exists Depression Screening 07/21/2024 Lung Cancer Screening (Low Dose CT) 08/28/2024 08/28/2023, 05/08/2022, 05/06/2021 Influenza Vaccine (#1) 2025 , 05/03/2023, 04/16/2022, Additional history exists Diabetes: Annual GFR (Glomerular Filtration Rate) 09/27/2025 09/27/2024, 07/26/2024, 04/01/2024, Additional history exists Hypertension/CHF/CAD Annual BMP Blood Test 09/27/2025 09/27/2024, 07/26/2024, 04/01/2024, Additional history exists DTaP,Tdap,and Td Vaccines (4 - Td or Tdap) 03/12/2028 03/12/2018, 05/07/2012, 08/21/2003 Cholesterol Screening (Lipid Panel) 04/01/2029 04/01/2024 Pneumococcal Vaccine: 50+ Years Completed 05/20/2016, 01/10/2015, 05/03/2011, Additional history exists Zoster Vaccines Completed 07/25/2019, 09/2018, 05/21/2012 Hepatitis C Screening Completed 03/07/2020 RSV Immunization Adult Patients Completed 04/23/2024 HIB Vaccines Aged Out No longer eligi ble based on patient's age to complete this topic HPV Vaccines Aged Out No longer eligi ble based on patient's age to complete this topic Hepatitis A Vaccines Aged Out No long er eligible based on patient's age to complete this topic Hepatitis B Vaccines Aged Out No long er eligible based on patient's age to complete this topic IPV Vaccines Aged Out No longer eligi ble based on patient's age to complete this topic MMR Vaccines Aged Out No longer eligi ble based on patient's age to complete this topic Meningococcal ACWY Vaccine Aged Out N o longer eligible based on patient's age to complete this topic Meningococcal B Vaccine Aged Out No l onger eligible based on patient's age to complete this topic RSV Immunization Patients Under 20 months Aged Out No longer eligible based on patient's age to complete this topic Varicella Vaccines Aged Out No longer eligible based on patient's age to complete this topic Procedures Procedure Name Priority Date/Time Associated Diagnosis Comments CT LUNG SCREENING LOW DOSE Routine 08/28/2023 12:49 PM EST Encounter for screening for malignant neoplasm of respiratory organs from Last 3 Months or Most Recently Relevant to Health Maintenance Results * CT LUNG SCREENING LOW DOSE (08/28/2023 12:49 PM EST) Anatomical Region Laterality Modality Computed Tomogra phy 08/28/2023 9:42 AM EST Narrative 08/28/2023 12:49 PM EST [facility] Diagnostic Imaging Department [address] [place] [address] Patient: JUSTIN BARCLAY /Age/Sex: 1945 - 78 - M Unit#: [id number] [facility]/Ordering Site: [facility] Ordering Physician: ARYA FREEDMAN MD CT Lung Screening Low Dose - 08/28/23947 Report Status:Signed PROCEDURE: Chest CT INDICATION: Current smoker, 64 pack year smoking history, lung cancer screening TECHNIQUE: Chest CT without contrast. Multi planar reformats were created and interpreted. The examination was performed utilizing dose reduction techniques. COMPARISON: 05/08/2022 and 08/24/2022 FINDINGS: LUNGS/PLEURA: Secretions noted in the left mainstem bronchus. Emphysema. Chronic bronchitis. Linear atelectasis/scarring seen throughout the lungs, similar compared to prior. Right middle lobe calcified granuloma. 2 mm right middle lobe nodule is stable compared to prior. No new or suspicious pulmonary nodules. No pleural effusion or pneumothorax. MEDIASTINUM: Thyroid gland is unremarkable. No mediastinal or hilar lymphadenopathy. Cardiac chambers are normal in size. No pericardial effusion. Esophagus is normal. Severe coronary artery calcifications. CHEST WALL: No axillary lymphadenopathy or superficial hematoma. UPPER ABDOMEN:Hepatic steatosis. BONES: No acute fracture. Scattered degenerative changes seen throughout the bones. IMPRESSION: No new or suspicious pulmonary nodules. Lung RADS 2-benign. Recommend continued screening low-dose chest CT in 12 months.. Dictating Physician: LUDA ERWIN MD Electronically Signed by: LUDA ERWIN MD Dic Date/Time: 08/28/23 1242 Sign date/Time: 08/28/23 1249 Procedure Note Luda Erwin MD - 03/08/2024 [facility] Diagnostic Imaging Department [address] [place] [address] Patient: JUSTIN BARCLAY Flo /Age/Sex: 1945 - 78 - M Unit#: [id number] Location/Status: [facility]/REG CLI Mnemonic/Ordering Site: [facility] Ordering Physician: ARYA FREEDMAN MD CT Lung Screening Low Dose - 08/28/23 - 947 Report Status:Signed PROCEDURE: Chest CT INDICATION: Current smoker, 64 pack year smoking history, lung cancerscreening TECHNIQUE: Chest CT without contrast. Multi planar reformats were createdand interpreted. The examination was performed utilizing dose reductiontechniques. COMPARISON: 05/08/2022 and 08/24/2022 FINDINGS: LUNGS/PLEURA: Secretions noted in the left mainstem bronchus.Emphysema. Chronic bronchitis. Linear atelectasis/scarring seen throughout thelungs, similar compared to prior. Right middle lobe calcified granuloma. 2 mmright middle lobe nodule is stable compared to prior. No new or suspiciouspulmonary nodules. No pleural effusion or pneumothorax. MEDIASTINUM: Thyroid gland is unremarkable. No mediastinal or hilar lymphadenopathy. Cardiac chambers are normal in size. No pericardialeffusion. Esophagus is normal. Severe coronary artery calcifications. CHEST WALL: No axillary lymphadenopathy or superficial hematoma. UPPER ABDOMEN:Hepatic steatosis. BONES: No acute fracture. Scattered degenerative changes seen throughoutthe bones. IMPRESSION: No new or suspicious pulmonary nodules. Lung RADS 2-benign. Recommend continued screening low-dose chest CT in 12 months.. Dictating Physician: LUDA ERWIN MD Electronically Signed by: LUDA ERWIN MD Dic Date/Time: 08/28/23 1242 Sign date/Time: 08/28/23 1249 Arya Freedman MD [facility] [place] Final Result from Last 3 Months or Most Recently Relevant to Health Maintenance Insurance [facility] MEDICARE Care Teams Noodle Maker Relationship Specialty Start Date End Date Gabriel Fajrado MD [address] [place] [id number] PCP - General Internal Medicine 06/02/17
--- OUTSIDE RECORDS SUMMARY | 2025-02-07 12:34 | XMS_ITS | Patient Health Record ---
Author Organization [facility] Address [address] [place] [address] Care Team Providers Care Certified Real Estate Appraiser Name Role Phone Gabriel Fajardo MD Primary Care Provider UnavailFelice Jon Unavailable [phone] Allergies No Known Allergies Results Component Value Reference Range Notes HEMOGLOBIN A1C (GLYCOHEMOGLO BIN) Reviewed date:09/03/2024 11:33:14 AM Interpretation: Performing Lab: Notes/Report: HEMOGLOBIN A1C % (HH) 7.0 Reason For Referral No Information Medications Medication SIG (Take, Route, Frequency, Duration) Notes Start Date End Date Status Simvastatin 10 MG 1 tablet in the evening Orally Once a day; Duration: 30 day(s) Active Extra Depth Orthopedic Shoes, (1) Pair With (3) Pair Custom Heat Molded Multidensity Innersoles Dx: NIDDM/PVD(E11.51), Hammertoe Foot Deformity(M20.41,M20. 42), Preulcerative Skin Lesion(s)(L85.1) Wear Daily; Duration: 365 days Active Incruse Ellipta Acti ve metFORMIN HCl 500 MG 1 tablet with meals Orally Twice a day; Duration: 30 day(s) Active Garlic-Vit B6-Vit B12-FA Active hydroCHLOROthiazide Active Fish Oil 1000 MG 1 capsule Orally Onc e a day; Duration: 30 day(s) Active Centrum Silver as directed Orally Active Spiriva HandiHaler 18 MCG 1 capsule Inha lation Once a day Not-Taking Claritin Active Donezepil HCl-10 mg Active Claravis Not-Taking Dulera 100-5 MCG/ACT as directed Inhalation Active Multivitamin Not-Dante ing Immunizations Vaccine Route Administration Date Status Comme nts Influenza Unknown 05/20/2016 Administered Influenza Unknown 03/27/2018 Administered Influenza Unknown 03/21/2022 Administered Pneumococcal Unknown 05/20/2016 Administered COVID-19 Moderna Vaccine Unknown 04/13/2022 Administere d 1st 09/20/20 2nd 10/11/202020 Social History Tobacco Use: Social History Observation [...] Problem Acquired hammer toe of right foot (7937140974155 105) Other hammer toe(s) (acquired), right foot (M20.41) Active confirmed Response to treatment,I mprovement Problem Type 2 diabetes mellitus with peripheral angiopathy (139921540) Type 2 diabetes mellitus with diabetic peripheral angiopathy without gangrene (E11.51) Active confirmed Problem Acquired hammer toe of left foot (9926892760302 103) Other hammer toe(s) (acquired), left foot (M20.42) Active confirmed Response to treatment,I mprovement Problem Plantar wart (72299779) Plantar wart (B07.0) Active confirmed Chronic Vital Signs Respiratory Rate 130 /min 12/10/2024 Blood pressure diastolic 65 mm Hg 12/10/2024 Height 5 ft 6 in in 12/10/2024 Blood pressure systolic 128 mm Hg 12/10/2024 Weight 170 lbs 12/10/2024 BMI 27.44 kg/m2 12/10/2024 Procedures Procedure Date Ordered Date Performed Result Body Sit e 70179-LJCKETH NAIL, 6 OR MORE 02/24/2024 N/A 39169-Svlb Destruction, 1-14 02/24/2024 N/A 36812-XTCR SKIN LESIONS, OVER 4 02/24/2024 N/A 76098-Ajyy. Subungual Hematoma 02/24/2024 N/A 81612-IBKNUHB NAIL, 6 OR MORE 09/03/2024 N/A 96683-Nfxt Destruction, 1-14 09/03/2024 N/A 05403-NJYJ SKIN LESIONS, OVER 4 09/03/2024 N/A 49751-FOCQGJR NAIL, 6 OR MORE 12/10/2024 N/A 07161-Zvrl Destruction, 1-14 12/10/2024 N/A 12584-KEYI SKIN LESIONS, OVER 4 12/10/2024 N/A Encounters Encounter Location Date Provider Diagnosis [address] [address] 02/24/2024 Felicejhoan NobleMelly Type 2 diabetes mellitus with diabetic peripheral angiopathy without gangrene E11.51 ; Plantar wart B07.0 ; Tinea unguium B35.1 ; Pain in right toe(s) M79.674 ; Pain in left toe(s) M79.675 ; Right foot pain M79.671 ; Other hammer toe(s) (acquired), right foot M20.41 ; Other hammer toe(s) (acquired), left foot M20.42 and Subungual hematoma of left foot, initial encounter S90.222A [address] [address] 09/03/2024 Felice Nobleunier Type 2 diabetes mellitus with diabetic peripheral angiopathy without gangrene E11.51 ; Plantar wart B07.0 ; Tinea unguium B35.1 ; Pain in right toe(s) M79.674 ; Pain in left toe(s) M79.675 ; Other hammer toe(s) (acquired), right foot M20.41 ; Other hammer toe(s) (acquired), left foot M20.42 and Pain in left foot M79.[address] [address] 12/10/2024 Felicejhoan Pickard Type 2 diabetes mellitus with diabetic [...] E11.51) 09/03/2024 Plantar wart (ICD-10 - B07.0) 12/10/2024 Type 2 diabetes mellitus with diabetic peripheral angiopathy without gangrene (ICD-10 - E11.51) 12/10/2024 Plantar wart (ICD-10 - B07.0) 12/10/2024 Tinea unguium (ICD-10 - B35.1) 09/03/2024 Tinea unguium (ICD-10 - B35.1) 02/24/2024 Tinea unguium (ICD-10 - B35.1) 02/24/2024 Pain in right toe(s) (ICD-10 - M79.674) 09/03/2024 Pain in right toe(s) (ICD-10 - M79.674) 12/10/2024 Pain in right toe(s) (ICD-10 - M79.674) 12/10/2024 Pain in left toe(s) (ICD-10 - M79.675) 09/03/2024 Pain in left toe(s) (ICD-10 - M79.675) 02/24/2024 Pain in left toe(s) (ICD-10 - M79.675) 02/24/2024 Right foot pain (ICD-10 - M79.671) 09/03/2024 Other hammer toe(s) (acquired), right foot (ICD-10 - M20.41) Patient Educated with: DIABETIC FOOT CARE INSTRUCTIONS.p df (DIABETIC FOOT CARE INSTRUCTIONS.p df) 12/10/2024 Other hammer toe(s) (acquired), right foot (ICD-10 - M20.41) 12/10/2024 Other hammer toe(s) (acquired), left foot (ICD-10 - M20.42) 09/03/2024 Other hammer toe(s) (acquired), left foot (ICD-10 - M20.42) 02/24/2024 Other hammer toe(s) (acquired), right foot (ICD-10 - M20.41) Patient Educated with: DIABETIC FOOT CARE INSTRUCTIONS.p df (DIABETIC FOOT CARE INSTRUCTIONS.p df) 02/24/2024 Other hammer toe(s) (acquired), left foot (ICD-10 - M20.42) 09/03/2024 Pain in left foot (ICD-10 - M79.672) 12/10/2024 Pain in left foot (ICD-10 - M79.672) 02/24/2024 Subungual hematoma of left foot, initial encounter (ICD-10 - S90.222A) Plan Of Treatment Pending Test Test Name Order Date Hemoglobin A1c 03/24/2015 98839-BEMVZNX NAIL, 6 OR MORE 09/22/2015 15886-AACOFEI NAIL, 6 OR MORE 03/24/2015 11103-LNPMVEC NAIL, 6 OR MORE 03/22/2016 47920-UPODWXL NAIL, 6 OR MORE 09/20/2016 46887-WLORIZW NAIL, 6 OR MORE 12/08/2012 91139-NZRZRRN NAIL, 6 OR MORE 03/23/2013 17096-KXRGHRM NAIL, 6 OR MORE 09/21/2013 27960-CFRWYAC NAIL, 6 OR MORE 03/25/2014 15496-LQMSGPG NAIL, 6 OR MORE 09/23/2014 66765-TVTWCIA NAIL, 6 OR MORE 03/28/2017 93243-NZGEKES NAIL, 6 OR MORE 10/17/2017 20796-VPPKSIK NAIL, 6 OR MORE 04/17/2018 98875-UTPGTTZ NAIL, 6 OR MORE 10/09/2018 30225-FIOECLY NAIL, 6 OR MORE 04/06/2019 93687-DWLMNGY NAIL, 6 OR MORE 10/05/2019 17691-TKPNPXC NAIL, 6 OR MORE 04/07/2020 43238-RZNWQNL NAIL, 6 OR MORE 10/06/2020 61348-CZFRZRB NAIL, 6 OR MORE 04/06/2021 96825-TIQBARB NAIL, 6 OR MORE 11/09/2021 02201-JAXVBUQ NAIL, 6 OR MORE 06/18/2022 30408-VFZISRS NAIL, 6 OR MORE 12/17/2022 09698-KGGVDZI NAIL, 6 OR MORE 06/17/2023 45111-LVJAVAP NAIL, 6 OR MORE 02/24/2024 66079-HHOGSQN NAIL, 6 OR MORE 09/03/2024 19424-DYWDGMJ NAIL, 6 OR MORE 12/10/2024 78823-Vgxr Destruction, 08-0312/10/2024 60017-Bjvr Destruction, 08-0309/03/2024 95638-Zpkt Destruction, 08-0302/24/2024 10362-Zrks Destruction, 08-0306/17/2023 13820-Pcqt Destruction, 08-0312/17/2022 37473-Vsia Destruction, 08-0306/18/2022 92937-Dmro Destruction, 08-0311/09/2021 07021-Cebp Destruction, 08-0312/08/2012 02496-Glts Destruction, 08-0304/06/2021 19950-Cwrc Destruction, 08-0310/06/2020 75137-Lrsa Destruction, 08-0304/07/2020 48370-Pqyp Destruction, 08-0310/05/2019 67266-Bbhp Destruction, 08-0304/06/2019 79540-Gphe Destruction, 08-0310/09/2018 81282-Drfl Destruction, 08-0304/17/2018 01001-Smah Destruction, 08-0310/17/2017 28285-Lnwo Destruction, 08-0309/23/2014 65031-Auze Destruction, 08-0303/25/2014 39470-Tzzy Destruction, 08-0309/21/2013 65888-Ymka Destruction, 08-0303/23/2013 15366-Xszl Destruction, 08-0309/20/2016 24335-Mora Destruction, 08-0303/28/2017 20764-Ommx Destruction, 08-0303/22/2016 24878-Rtef Destruction, 08-0303/24/2015 99822-Clgy Destruction, 1-14 09/22/2015 04696-DNBQ SKIN LESIONS, OVER 4 06/18/20 22 31855-WLVT SKIN LESIONS, OVER 4 12/18/19 23 90510-YUZV SKIN LESIONS, OVER 4 06/17/20 23 47625-MSYG SKIN LESIONS, OVER 4 02/24/20 24 66033-ZMNX SKIN LESIONS, OVER 4 09/03/19 25 43808-EZUL SKIN LESIONS, OVER 4 12/11/19 25 15543-Qnjg. Subungual Hematoma 4 Next Appt Details Provider Name:Felice Pickard , 03/22/2025 01:30:00 PM, [address] [facility], [place], [address], Insurance Providers Payer Name Payer Address Payer Phone Subscriber Number Group Number Insured Name Patient Relationship to Insured Coverage Start Date Coverage End Date Medicare National Govt S[employer] [address] [facility] [address] [id number] Justin Barclay Self - patient is the insured 3 [employer] [address] [place] [address] [phone] [id number] Justin Barclay Self - patient is the insured Medical (General) History Medical History History ICD Code lung disease measles chicken pox cholesterol Diabetic type ll Surgical History Surgery Date(Month/Year) appendectomy 1963 colonoscopy 01/2014 cataract surgery 09/28/2018
== END 2025-02-07 12:04 | disposition home or self-care (01) ==
LOC: HO.HSM 11:28
PROVIDERS: PCP Internal Medicine; Visit Provider Registered Nurse
DX: G31.84 Mild cognitive impairment of uncertain or unknown etiology (principal); G31.09 Other frontotemporal neurocognitive disorder; F02.80 Dementia in other diseases classified elsewhere, unspecified severity, without behavioral disturbance, psychotic disturbance, mood disturbance, and anxiety
CPT/HCPCS: 99214

== ENCOUNTER → 2025-02-07 11:28 | Outpatient (BNVA) | payer MEDICARE, SELFPAY | PROVIDERS: PCP Internal Medicine; Visit Provider Registered Nurse | DX: G31.09 Other frontotemporal neurocognitive disorder (principal); F02.80 Dementia in other diseases classified elsewhere, unspecified severity, without behavioral disturbance, psychotic disturbance, mood disturbance, and anxiety; Z79.899 Other long term (current) drug therapy | CPT/HCPCS: 99212 ==

== ENCOUNTER 2025-02-22 10:32 | Outpatient (AMB) | payer MEDICARE, SELFPAY ==
--- NOTE | 2025-02-22 10:49 | MHC.OFFVIS ---
Vital Signs 02/22/25 11:04 Height 5 ft 6 in Weight 159 lb BMI 25.7 BP 156/58 H Blood Pressure Location Rt brachial Position Sitting Pulse 70 Pulse Source Pulse Oximeter Pulse Oximetry (%) 91 L Oxygen Delivery Method Room Air Intake Visit Reasons: constipation, discuss colo Intake Note: Est pt for mgmt of [facility]. [place] requested 11/2024. CC: Pt denies any changes since last visit. No new sx or concerns. Autopsy Pathologist Required: No Accompanied by: Family/Other Allergies No Known Allergies (No Known Allergies*) Allergy (Unverified 02/07/25 11:52) HPI HPI constipation, discuss colo: Details: LAST VISIT: Screen for colon cancer Plan Patient denies any GI, cardiac or respiratory symptoms.? Denies any issues with anesthesia in the past.? Denies any history of sleep apnea.? No history infectious diseases in the past or present.? Not on any anticoagulation therapy.? No family or personal history of colon cancer.? Patient denies melena, hematochezia, unintentional weight loss or ribbon like stools.? Discussed at length the pre-procedure,? prep, diet & medications as well as what to expect prior, during and after the procedure.?? Patient is seeing his child custody evaluator in February. Dr. Daniels phone #[phone]. Please call to see if he can go for procedure. Patient has a history of hypoxia due to his COPD. Stressed the importance of good bowel prep.? Recommended the use of Vaseline or Calmoseptine OTC & baby wipes with bowel movements to promote comfort.? ?Patient verbalizes understanding and agrees to plan of care.? He was given the opportunity to ask questions and all questions answered.? We will see him after the procedure.? New bisacodyl (Dulcolax (bisacodyl)) take 4 tabs at noon the day before your colonoscopy 20 mg (4 x 5 mg) PO ONCE 1 day 4 tabs 0RF Z12.11 polyethylene glycol 3350 (Miralax) As directed by gastroenterology department at [facility] 238 grams PO ONCE 238 grams 0RF Z12.11 bisacodyl (Dulcolax (bisacodyl)) 10 mg (2 x 5 mg) PO BEDTIME 180 tabs 4RF TODAY'S VISIT Patient is here today for follow-up and to discuss going for colonoscopy. Patient reports to be feeling well. Denies any abdominal pain or discomfort. Started taking Dulcolax and reports that his bowels are moving better. Denies melena, hematochezia, unintentional weight loss or ribbon like stools. Patient denies dyspepsia, dysphagia or odynophagia. Patient denies any issues with anesthesia in the past. Has appointment with his child custody evaluator on the of this month. Denies any cardiac or respiratory symptoms. Patient is not on any anticoagulation medication PFSH Medical History Frontotemporal lobar degeneration MCI (mild cognitive impairment) Early onset Alzheimer's dementia COPD (chronic obstructive pulmonary disease) CKD (chronic kidney disease) Diabetes mellitus HTN (hypertension) Surgical History Hx of colonoscopy Cataract Hx of appendectomy Social History Household Members: Family Housing: House Patient Tobacco Use Status: Former Tobacco user Tobacco use type: Cigarette Cigarettes Per Day: 1 Years Smoked: >50 service: No Current occupational status: retired Review of Systems Const Denies weight gain and Denies weight loss ENT Reports no additional complaints, Denies dysphagia and Denies odynophagia Card Reports no additional complaints Resp Reports no additional complaints GI Denies abdominal pain, Denies belching, Denies melena, Denies bloating, Denies change in bowel habits, Denies dysphagia, Denies excessive flatus, Denies dyspepsia, Denies heartburn, Denies diarrhea, Denies loose stools, Denies nausea, Denies odynophagia and Denies vomiting Reports no additional complaints Musc Reports no additional complaints Neuro Reports no additional complaints and Reports memory loss (Forgetfulness) Psych Reports no additional complaints and Reports memory loss (Forgetfulness) Endo Reports no additional complaints Physical Exam Vital Signs: Last Vital Signs Pulse 70 02/22/25 11:04 BP 156/58 H 02/22/25 11:04 Pulse Ox 91 L 02/22/25 11:04 Oxygen Delivery Method Room Air 02/22/25 11:04 BMI result Body Mass Index 25.7 Const General: healthy appearing, no acute distress and well developed Nutritional Appearance: well nourished Orientation/consciousness: patient oriented x3 Resp Effort & Inspection: normal respiratory effort, able to speak in complete sentences, no tracheal deviation and symmetric chest movement Auscultation: clear to auscultation bilaterally Cardio Rate: regular rate GI Inspection: Yes normal to inspection and No distended Palpation (GI): Soft to palpation, not firm, nontender and No hepatosplenomegaly present Auscultation: normal bowel sounds General: Yes no CVA tenderness Back/Spine/Pelvis Back: no CVA tenderness Skin General skin exam: elasticity normal, turgor normal and dry skin Neuro General: patient oriented x3 Psych Appearance: grossly normal Mental Status: mental status grossly normal Assessment & Plan Assessment & Plan (1) Encounter for screening for malignant neoplasm of colon: Code(s): Z12.11 - Encounter for screening for malignant neoplasm of colon (2) Constipation: Code(s): K59.00 - Constipation, unspecified Qualifiers: Constipation type: slow transit constipation Qualified Code(s): K59.01 - Slow transit constipation Plan Patient will continue taking Dulcolax daily. Increase fluid intake and activity to promote better bowel motility. What to expect before during and after procedure discussed patient. Stressed importance of good bowel prep and clear liquid diet day before procedure. Patient will be seen after the procedure, he basis. Both patient and his are agreeable to this plan and verbalize understanding of instructions. They were given the opportunity to ask questions and all questions answered. Thank you for allowing me to participate in his care Coding Level of Care Code Est Pt Level 3 (92575) Diagnoses Encounter for screening for malignant neoplasm of colon Z12.11 Slow transit constipation K59.01 Constipation type: slow transit constipation Time Spent (min) 30 Comment 20 minutes spent with patient and additional 10 minutes spent reviewing his records
[2025-02-22 11:04] VITALS: BP 156/58; PULSE 70; O2SAT 91; BMI 25.7
--- OUTSIDE RECORDS SUMMARY | 2025-02-22 11:12 | XMS_ITS | Clinical Summary ---
Author Organization [facility] Address [address] [address] Phone Care Team Providers Care Air Crew Member Name Role Phone Gabriel Fajardo MD Primary Care Provider [phone] Allergies No known active allergies Medications amLODIPine [...] puff 1 (one) time each day Active Vantage-3 Fatty Acids 1400 MG capsule Take 1 [...] Office Visit [facility] [address] [phone] Sebastián Timmons MD Stage 3a chronic kidney disease (HCC) (Primary Dx); Proteinuria, not otherwise specified; Nephrolithiasis; Hypertension; Dyslipidemia; Diabetes mellitus, not otherwise specified (HCC); Cyst of kidney 12/09/2024 Orders Only [facility] [address] [phone] Sebastián Timmons MD Stage 3a chronic kidney disease (HCC); Proteinuria, not otherwise specified; Nephrolithiasis; Hypertension; Dyslipidemia; Diabetes mellitus, not otherwise specified (HCC); Cyst of kidney 12/01/2024 Orders Only [facility] [address] [phone] Sebastián Timmons MD from Last 3 Months [...] Office Visit [facility] [address] [phone] Sebastián Timmons MD [address] [address] Health Maintenance Due Date Last [...] IgG 561(L) 603 - 1,613 mg/dL [facility] IgA 190 61 - 437 mg/dL [facility] IgM 59 15 - 143 mg/dL [facility] Serum Albumin 4.1 2.9 - 4.4 g/dL [facility] Pwmjv-1-Pvdpocxt 0.2 0.0 - 0.4 g/dL [facility] Gsmlt-2-Waudykan 0.8 0.4 - 1.0 g/dL [facility] Beta Globulin 1.1 0.7 - 1.3 g/dL [facility] Gamma Globulin in Serum 0.4 0.4 - 1.8 g/dL [facility] M-Ace Serum Not Observed Not Observed g/dL [facility] Globulin, Total 2.6 2.2 - 3.9 g/dL [facility] Albumin/Globulin Ratio Calculated 1.6 0.7 - 1.7 [facility] Immunofixation Result, Serum Comment [facility] Comment: The immunofixation pattern appears unremarkable. Evidence of monoclonal protein is not apparent. Please note Comment [facility] [phone] Comment: Protein electrophoresis scan will follow via computer, mail, or escalator constructor delivery. PDF . [facility] [phone] 12/01/2024 11:1 4 AM EDT 12/01/2024 Sebastián Timmons MD LAB BLOOD ORDERABLES Final Re sult Performing Organization Address [facility] Co de Phone Number [facility] [address] [place] [address] * (ABNORMAL) Protein, Total, Random Urine w/Creatinine (Protein/Creat Ratio) (12/01/2024 11:14 AM EDT) Creatinine, Ur 88.2 Not Estab. mg/dL [facility] Protein, Ur 108.6 Not Estab. mg/dL [facility] Urine Protein/Creati nine Ratio 1,231(H) 0 - 200 mg/g creat [facility] 12/01/2024 11:1 4 AM EDT 12/01/2024 Sebastián Timmons MD LAB URINE ORDERABLES Final Re sult Performing Organization Address [facility] de Phone Number [facility] [address] [place] [address] * Vitamin D 25 Hydroxy (12/01/2024 11:14 AM EDT) Vitamin D, 25-OH, Total 38.1 30.0 - 100.0 ng/mL [facility] Comment: Vitamin D deficiency has been defined by the [place] of [employer] and an Endocrine Society practice guideline as a level of serum 25-OH vitamin D less than 20 ng/mL (1,2). The Endocrine Society went on to further define vitamin D insufficiency as a level between 21 and 29 ng/mL (2). 1. IOM ([place] of Medicine). 2010. Dietary reference intakes for calcium and D. [place]: The National Academies Press. 2. Mauricio MF, Trish GARCIA, Jose L ABDI, et al. Evaluation, treatment, and prevention of vitamin D deficiency: an Endocrine Society clinical practice guideline. JCEM. 2010; 96(7):1911-30. 12/01/2024 11:1 4 AM EDT 12/01/2024 us Sebastián Timmons MD LAB BLOOD ORDERABLES Final Re sult [facility] [address] [place] [address] * (ABNORMAL) CBC and Differential (12/01/2024 11:14 AM EDT) WBC 9.1 3.4 - 10.8 x10E3/uL [facility] RBC 3.99(L) 4.14 - 5.80 x10E6/uL [facility] Hemoglobin 11.9(L) 13.0 - 17.7 g/dL [facility] Hematocrit 36.4(L) 37.5 - 51.0 % [facility] MCV 91 79 - 97 fL [facility] MCH 29.8 26.6 - 33.0 pg [facility] MCHC 32.7 31.5 - 35.7 g/dL [facility] RDW 12.5 11.6 - 15.4 % [facility] Platelets 245 150 - 450 x10E3/uL [facility] Neutrophils Relative 64 Not Estab. % [facility] Lymphocytes Relative 22 Not Estab. % [facility] Monocytes 10 Not Estab. % [facility] Eosinophils Relative 3 Not Estab. % [facility] Basophils Relative 0 Not Estab. % [facility] Neutrophils Absolute 5.9 1.4 - 7.0 x10E3/uL [facility] Lymphocytes Absolute 2.0 0.7 - 3.1 x10E3/uL [facility] Monocytes Absolute 0.9 0.1 - 0.9 x10E3/uL [facility] Eosinophils Absolute 0.2 0.0 - 0.4 x10E3/uL [facility] Basophils Absolute 0.0 0.0 - 0.2 x10E3/uL [facility] Immature Granulocytes 1 Not Estab. % [facility] Immature Grans (Absolute) 0.1 0.0 - 0.1 x10E3/uL [facility] 12/01/2024 11:1 4 AM EDT 12/01/2024 Sebastián Timmons MD LAB BLOOD ORDERABLES Final Re sult [facility] [address] [place] [address] * Uric Acid (12/01/2024 11:14 AM EDT) Uric Acid 8.2 3.8 - 8.4 mg/dL [facility] Comment:Therapeutic target f or gout patients: <6.0 12/01/2024 11:1 4 AM EDT 12/01/2024 Sebastián Timmons MD LAB BLOOD ORDERABLES Final Re sult Performing Organization Address [facility] Co de Phone Number [facility] [address] [place] [address] * Phosphorus (12/01/2024 11:14 AM EDT) Phosphorus 4.0 2.8 - 4.1 mg/dL [facility] 12/01/2024 11:1 4 AM EDT 12/01/2024 Sebastián Timmons MD LAB BLOOD ORDERABLES Final Re sult Performing Organization Address [facility] de Phone Number [facility] [address] [place] [address] * (ABNORMAL) PTH, Intact (12/01/2024 11:14 AM EDT) PTH 120(H) 15 - 65 pg/mL [facility] 12/01/2024 11:1 4 AM EDT 12/01/2024 us Sebastián Timmons MD LAB BLOOD ORDERABLES Final Re sult Performing Organization Address [facility] de Phone Number [facility] [address] [place] [address] * (ABNORMAL) Magnesium (12/01/2024 11:14 AM EDT) Magnesium 2.4(H) 1.6 - 2.3 mg/dL [facility] 12/01/2024 11:1 4 AM EDT 12/01/2024 us Sebastián Timmons MD LAB BLOOD ORDERABLES Final Re sult Performing Organization Address [facility] Co de Phone Number [facility] [address] [place] [address] * (ABNORMAL) Comprehensive Metabolic Panel (12/01/2024 11:14 AM EDT) [facility] Glucose 120(H) 70 - 99 mg/dL [facility] BUN 32(H) 8 - 27 mg/dL [facility] Creatinine 2.09(H) 0.76 - 1.27 mg/dL [facility] eGFR CKD-EPI CR 2020 32(L) >59 mL/min/1.7 3 [facility] BUN/Creatinine Ratio 15 10 - 24 [facility] Sodium 143 134 - 144 mmol/L [facility] Potassium 4.5 3.5 - 5.2 mmol/L [facility] Chloride 103 96 - 106 mmol/L [facility] Bicarbonate (CO2) 20 20 - 29 mmol/L [facility] Calcium 9.1 8.6 - 10.2 mg/dL [facility] Total Protein 6.7 6.0 - 8.5 g/dL [facility] Albumin 4.6 3.8 - 4.8 g/dL [facility] Globulin 2.1 1.5 - 4.5 g/dL [facility] Total Bilirubin 0.4 0.0 - 1.2 mg/dL [facility] Alkaline Phosphatase 145(H) 44 - 121 IU/L [facility] AST (SGOT) 29 0 - 40 IU/L [facility] ALT (SGPT) 35 0 - 44 IU/L [facility] 12/01/2024 11:1 4 AM EDT 12/01/2024 us Sebastián Timmons MD LAB BLOOD ORDERABLES Final Re sult [facility] [address] [place] [address] * (ABNORMAL) EXT RESULT ENTRY (05/30/2023) Sodium [...] 9.5 8.7 - 10.7 mg/dL eGFR Non-Afr Kyrgyz 41 Total Bilirubin 0.5 MG/DL ALT (SGPT) 55 U/L AST (SGOT) 58 U/L Alkaline Phosphatase 112 U/L Hemoglobin A1C 6.2(A) 4.0 - 6.0 05/30/2023 Historical Provider LAB BLOOD ORDERABLES Edit ed Result - Final from Last 3 Months or Most Recently Relevant to Health Maintenance Insurance Medicare [facility] Medicare [facility] Care Teams Air Crew Member Relationship Specialty Start Date End Date Gabriel Fajardo MD [address] [place] [id number] PCP - General Internal Medicine 06/05/23
--- OUTSIDE RECORDS SUMMARY | 2025-02-22 11:12 | XMS_ITS | Clinical Summary ---
Author Organization [address] [facility] Address [address] [place] [address] Phone Care Team Providers Care Peripheral Vascular Tech Name Role Phone Gabriel Fajardo MD Primary Care Provider [phone] Allergies No known active allergies Medications albuterol [...] (LOVAZA) 1 gram capsule Take by mouth. Hensley-3 Fatty Acids (FISH OIL TRIPLE STRENGTH) 1400 [...] Trelegy Ellipta 100-62.5-25 mcg inhalerIndicatio ns:Emphysema, unspecified ([facility] V24, [facility] V28) INHALE 1 PUFF INTO THE LUNGS DAILY FOR 30 DAYS. 60 each 11 5 Active Active Problems Problem Noted Date Diagnosed Date Pulmonary nodule 08/27/2022 Overview (05/21/2024): Last Assessment & Plan: 77 y/o gentleman who is part of [facility] had a Lung RADS 4A finding on CT scan from May 08, 2022. 1. His most recent CT scan performed on 08/24/22 showed resolution of nodules within the the left upper lobe and no new or enlarging pulmonary nodules seen. Based upon these findings, the patient will be referred back to the [facility] for his annual CT scan to [...] 10/14/2017 Diabetes mellitus type 2, un complicated ([facility] V24, [facility] V28) 10/14/2017 Hyperlipidemia 10/14/2017 Tobacco use disorder 10/14/2017 Chronic obstructive pulmonar y disease (COPD) ([facility] V24, [facility] V28) 06/02/2017 Immunizations Name Administration Dates Next [...] abuse Chronic obstructive pulmonar y disease (COPD) ([facility] V24, [facility] V28) 06/02/2017 DX:Chronic obstructi ve pulmonary disease (COPD) ([facility]) Diabetes mellitus type 2, uncomplicated ([facility] V24, [facility] V28) 11/25/2017 DX:Diabetes mellitus type 2, uncomplicated ([facility]) Hyperlipidemia 11/25/2017 DX:Hyperlipidemi a Allergic rhinitis 11/25/2017 [...] 11:30 AM EDT Office Visit Pulmonolgy - [place] [address] [facility] [address] [place] [phone] Bennett Daniels MD [address] [facility] [address] [place] [address] Health Maintenance Due Date Last Done Comments [...] AM EST Narrative 08/28/2023 12:49 PM EST [facility] Diagnostic Imaging Department [address] [place] [address] Patient: JUSTIN BARCLAY /Age/Sex: 1945 - 78 - M Unit#: [id number] [facility]Ordering Site[facility] Ordering Physician: ARYA FREEDMAN MD CT Lung [...] Procedure Note Luda Erwin MD - 03/08/2024 [facility] Diagnostic Imaging Department [address] [place] [address] Patient: JUSTIN BARCLAY Flo /Age/Sex: 1945 - 78 - M Unit#: [id number] Location/Status: [facility]/REG CLI Mnemonic/Ordering Site: [facility] Ordering Physician: ARYA FREEDMAN MD CT Lung [...] 08/28/23 1249 Arya Freedman MD [facility] PROCEDURES Final Result from Last 3 Months or Most Recently Relevant to Health Maintenance Insurance [facility] MEDICARE Care Teams Peripheral Vascular Tech Relationship Specialty Start Date End Date Gabriel Fajardo MD [address] [place] [id number] PCP - General Internal Medicine 06/02/17
--- OUTSIDE RECORDS SUMMARY | 2025-02-22 11:12 | XMS_ITS | Patient Health Record ---
Author Organization [facility] Address [address] [place] [address] Care Team Providers Care Logger All Round Name Role Phone Gabriel Fajardo MD Primary Care Provider UnavailFelice Jon Unavailable [phone] Allergies No Known Allergies Results Component Value [...] Problem Acquired hammer toe of right foot (5803030294339 105) Other hammer toe(s) (acquired), right foot (M20.41) Active confirmed Response to treatment,I mprovement Problem Type 2 diabetes mellitus with peripheral angiopathy (726773751) Type 2 diabetes mellitus with diabetic peripheral angiopathy without gangrene (E11.51) Active confirmed Problem Acquired hammer toe of left foot (7047783405864 103) Other hammer toe(s) (acquired), left foot (M20.42) Active confirmed Response to treatment,I mprovement Problem Plantar wart (19450290) Plantar wart (B07.0) Active confirmed Chronic Vital Signs Respiratory Rate 130 /min 12/10/2024 Blood pressure diastolic 65 mm Hg 12/10/2024 Height 5 ft 6 in in 12/10/2024 Blood pressure systolic 128 mm Hg 12/10/2024 Weight 170 lbs 12/10/2024 BMI 27.44 kg/m2 12/10/2024 Procedures Procedure Date Ordered Date Performed Result Body Sit e 47275-UTOMCYY NAIL, 6 OR MORE 02/24/2024 N/A 43426-Alqv Destruction, 1-14 02/24/2024 N/A 63730-MIMA SKIN LESIONS, OVER 4 02/24/2024 N/A 42374-Cmag. Subungual Hematoma 02/24/2024 N/A 73190-EZDSRAI NAIL, 6 OR MORE 09/03/2024 N/A 09993-Mszf Destruction, 1-14 09/03/2024 N/A 72933-PBSD SKIN LESIONS, OVER 4 09/03/2024 N/A 77558-YITRVXP NAIL, 6 OR MORE 12/10/2024 N/A 89554-Bpxj Destruction, 1-14 12/10/2024 N/A 90018-CTFX SKIN LESIONS, OVER 4 12/10/2024 N/A Encounters Encounter Location Date Provider Diagnosis [address] [address] 02/24/2024 Felicejhoan NobleMelly Type 2 diabetes mellitus [...] hematoma of left foot, initial encounter S90.222A [address] [address] 09/03/2024 Felice Nobleunier Type 2 diabetes mellitus with diabetic peripheral angiopathy without gangrene E11.51 ; Plantar wart B07.0 ; Tinea unguium B35.1 ; Pain in right toe(s) M79.674 ; Pain in left toe(s) M79.675 ; Other hammer toe(s) (acquired), right foot M20.41 ; Other hammer toe(s) (acquired), left foot M20.42 and Pain in left foot M79.[address] [address] 12/10/2024 Felicejhoan Pickard Type 2 diabetes mellitus [...] Test Name Order Date Hemoglobin A1c 03/24/2015 09590-TDVQYAL NAIL, 6 OR MORE 09/22/2015 27345-IVVNTHY NAIL, 6 OR MORE 03/24/2015 53202-ZCEWOAU NAIL, 6 OR MORE 03/22/2016 17902-KZRCPRQ NAIL, 6 OR MORE 09/20/2016 42490-NOGGPJI NAIL, 6 OR MORE 12/08/2012 28868-GEGNKPI NAIL, 6 OR MORE 03/23/2013 84252-XWXSCTD NAIL, 6 OR MORE 09/21/2013 04260-OZBCOHE NAIL, 6 OR MORE 03/25/2014 68070-SVYMBLE NAIL, 6 OR MORE 09/23/2014 89271-YFSLNNE NAIL, 6 OR MORE 03/28/2017 71463-ILUYGEG NAIL, 6 OR MORE 10/17/2017 46450-PFLXWBV NAIL, 6 OR MORE 04/17/2018 48795-CHPYOOJ NAIL, 6 OR MORE 10/09/2018 67068-FKQTAJE NAIL, 6 OR MORE 04/06/2019 69948-TSECTOR NAIL, 6 OR MORE 10/05/2019 46073-SHANEQH NAIL, 6 OR MORE 04/07/2020 50750-QBLFGDK NAIL, 6 OR MORE 10/06/2020 47652-BTMTELR NAIL, 6 OR MORE 04/06/2021 94362-SKTPPHO NAIL, 6 OR MORE 11/09/2021 11893-WOAMZVR NAIL, 6 OR MORE 06/18/2022 10035-EGIGSIP NAIL, 6 OR MORE 12/17/2022 37708-BGSPELN NAIL, 6 OR MORE 06/17/2023 66536-ZLZFDMH NAIL, 6 OR MORE 02/24/2024 64786-NEAWOKQ NAIL, 6 OR MORE 09/03/2024 11941-QFQRZOB NAIL, 6 OR MORE 12/10/2024 54911-Bxsq Destruction, 08-0312/10/2024 81483-Oiba Destruction, 08-0309/03/2024 14024-Epxa Destruction, 08-0302/24/2024 67805-Kwaa Destruction, 08-0306/17/2023 40236-Pbaf Destruction, 08-0312/17/2022 14903-Uqzr Destruction, 08-0306/18/2022 85677-Wacd Destruction, 08-0311/09/2021 86605-Cisz Destruction, 08-0312/08/2012 32779-Ayxo Destruction, 08-0304/06/2021 91845-Vaax Destruction, 08-0310/06/2020 70986-Yzez Destruction, 08-0304/07/2020 25698-Gvvy Destruction, 08-0310/05/2019 60680-Ennu Destruction, 08-0304/06/2019 17362-Vrbf Destruction, 08-0310/09/2018 53681-Azpk Destruction, 08-0304/17/2018 74835-Tnjq Destruction, 08-0310/17/2017 66672-Okgu Destruction, 08-0309/23/2014 59345-Gblg Destruction, 08-0303/25/2014 72013-Ebbp Destruction, 08-0309/21/2013 06240-Kgon Destruction, 08-0303/23/2013 49449-Hvti Destruction, 08-0309/20/2016 18866-Hwcx Destruction, 08-0303/28/2017 52466-Oxzl Destruction, 08-0303/22/2016 64484-Vjlj Destruction, 08-0303/24/2015 42989-Ihoi Destruction, 1-14 09/22/2015 81100-TDEF SKIN LESIONS, OVER 4 06/18/20 22 41822-ISYM SKIN LESIONS, OVER 4 12/18/19 23 18948-QOFY SKIN LESIONS, OVER 4 06/17/20 23 49776-ETHK SKIN LESIONS, OVER 4 02/24/20 24 56774-CSBK SKIN LESIONS, OVER 4 09/03/19 25 21609-YBSA SKIN LESIONS, OVER 4 12/11/19 25 07380-Hcjy. Subungual Hematoma 4 Next Appt Details Provider Name:Felice Pickard , 03/22/2025 01:30:00 PM, [address] [facility], [place], [address], Insurance Providers Payer Name Payer Address Payer Phone Subscriber Number Group Number Insured Name Patient Relationship to Insured Coverage Start Date Coverage End Date Medicare National Govt Sv[employer] [address] [facility] [place] [address] [id number] Justin Barclay Self - patient is the insured 3 [employer] Blue Shield [address] [place] [address] [id number] Justin Barclay Self - patient is the insured Medical (General) History Medical History History ICD Code lung disease measles chicken pox cholesterol Diabetic type ll Surgical History Surgery Date(Month/Year) appendectomy 1963 colonoscopy 01/2014 cataract surgery 09/28/2018
--- OUTSIDE RECORDS SUMMARY | 2025-02-22 11:12 | XMS_ITS | Encounter Summary ---
Author Organization [facility] Address [address] [facility] [address] [place] [address] Phone Care Team Providers Care Canine Service Teacher Name Role Phone Gabriel Fajardo MD Primary Care Provider [phone] Gabriel Fajardo MD Unavailable [phone] Melly Puente DPM, Erik Unavailable Noel Last MD Unavailable Bennett Daniels MD Unavailable [phone] Encounter Details Date Type Department Care Team (Late st Contact Info) Description 02/09/2025 Orders Only [facility] Internal Medicine [address] [place] [address] Provider, MD Nigel [facility] [place] [phone] Social History Tobacco Use Types Packs/Day Years Used Date Smoking Tobacco: Former Cigarettes 0 12/28/1961 - 08/05/2022 Smokeless Tobacco: Never Comments:0-2 cigarettes a da y Alcohol Use Standard Drinks/Week Comments No 0 [...] Orientation Straight 11/29/2021 10 :31 PM EDT documented as of this encounter Plan of Treatment Upcoming Encounters Date Type Department Care Team (Late st Contact Info) Description 02/23/2025 11:30 AM EDT Office Visit [facility] Internal Medicine [address] [place] [address] Gabriel Fajardo MD [address] [place] [address] [email or web address] documented as of this encounter Procedures Procedure Name Priority Date/Time Associated Diagnosis Comments DIABETES EYE EXAM FOR RESULT ENTRY ONLY Routine 01/07/2024 9:50 AM EDT documented in this encounter Results * DIABETES EYE EXAM FOR RESULT ENTRY ONLY (01/07/2024 9:50 AM EDT) us Historical Provider HEALTH MAINTENANCE Final Result documented in this encounter Visit Diagnoses Not on filedocumented in this encounter Additional Health Concerns Assessment Noted Time PHQ-9 Depression Total Score: 7 09/17/19 23 3:41 PM EST PHQ-2 Depression Total Score: 0 09/28/19 25 10:52 AM EDT documented as of this encounter Care Teams Canine Service Teacher Relationship Specialty Start Date End Date Gabriel Fajardo MD [address] [place] [address] [email or web address] PCP - General 05/08/17 Gabriel Fajardo MD [address] [place] [address] [email or web address] Insurance Assigned Provider 10/25/23 Felice Pickard DPM [address] [place] [id number] Podiatry 09/07/19 Noel Last MD [address] [place] [address] Ophthalmology 03/10/20 Bennett Daniels MD [address] [place] [phone] Pulmonary Disease 03/12/21 documented as of this encounter Additional Source Comments The information contained in this document represents components of the legal health record. It is not the complete legal health record.[facility]
== END 2025-02-22 11:25 | disposition home or self-care (01) ==
LOC: HO.HGI 10:32
PROVIDERS: PCP Internal Medicine; Visit Provider Nurse Practitioner Family
DX: K59.01 Slow transit constipation (principal)
CPT/HCPCS: 99213

== ENCOUNTER → 2025-02-22 10:32 | Outpatient (BNVA) | payer MEDICARE, SELFPAY | PROVIDERS: PCP Internal Medicine; Visit Provider Nurse Practitioner Family | DX: Z12.11 Encounter for screening for malignant neoplasm of colon (principal); K59.01 Slow transit constipation | CPT/HCPCS: 99212 ==

== ENCOUNTER 2025-05-16 11:44 | Outpatient (AMB) | payer MEDICARE, SELFPAY ==
--- OUTSIDE RECORDS SUMMARY | 2023-12-16 05:15 | XMS_ITS ---
Author Organization [facility] Address [address] [place] [id number] Care Team Providers Care Machine Rope Maker Name Role Phone Gabriel Fajardo MD Primary Care Provider Unavaila Felice Bullard Unavailable [phone] Becker Encounters Encounter Location Date Provider Diagnosis [address] [address] 12/16/2023 Felice Pickard Plan Of Treatment Next Appt Details Provider Name:Felice Pickard , 07/05/2025 03:30:00 PM, [address] [place] [address], [phone], Progress Notes * Justin BARCLAY DOB:1944 (80 yo M)Acc No.[id number]:12/16/2023 Progress Note Patient: Justin DEVINE Jr Provider: Flo Pickard DPM :1945 A ge:78 Y S ex:Male Date:12/16/2023 Address:[address] [place] [address] Pcp:Gabriel Fajardo MD Subjective: * Chief Complaints: * [address] Becker. * Medical History: Objective: * Vitals: Assessment: Plan: * Treatment: * Images: * The named appointment provid er may or may not be the originator of this progress note, and it is not deemed complete until electronically signed by the appointment provider. Sign off status: Pending * Provider: Fol Pickard DPM Date: 0 12/16/2023 Generated for Emelina Almanzar on: 03:11 PM EDT
--- OUTSIDE RECORDS SUMMARY | 2024-08-24 05:00 | XMS_ITS ---
Author Organization [facility] Address [address] [place] [id number] Care Team Providers Care Coating Machine Operator Helper Name Role Phone Gabriel Fajardo MD Primary Care Provider UnavailFelice Jon Unavailable [phone] Encounters Encounter Location Date Provider Diagnosis [address] [address] 08/24/2024 Felice Pickard Plan Of Treatment Next Appt Details Provider Name:Felice Pickard , 07/05/2025 03:30:00 PM, [address] [place] [address], [phone], Progress Notes * Justin BARCLAY DOB:1944 (80 yo M)Acc No.[id number]:08/24/2024 Progress Note Patient: Justin DEVINE Provider: Flo Pickard DPM :1945 A ge:79 Y S ex:Male Date:08/24/2024 Address:[address] [place] [address] Pcp:Gabriel Fajardo MD Subjective: * Chief Complaints: [...] 0 08/24/2024 Generated for Emelina lucas/Vijaya/Marita on: 1 03:11 PM EDT
--- NOTE | 2025-05-16 11:50 | A.OFFVIS_ITS ---
Intake Visit Reasons: 3 months MCI Accompanied by: Spouse Allergies No Known Allergies (No Known Allergies*) Allergy (Unverified 05/16/25 11:53) Medication List - Last Reconciled 05/16/25 by Paulette Bernal CNP albuterol sulfate 90 mcg/actuation 2 puffs inhalation Q6H PRN amlodipine 1 tab PO DAILY bisacodyl (Dulcolax (bisacodyl)) 20 mg (4 x 5 mg) PO ONCE 1 day bisacodyl (Dulcolax (bisacodyl)) 10 mg (2 x 5 mg) PO BEDTIME cyanocobalamin (vitamin B-12) 1,000 mcg PO DAILY donepezil 10 mg PO BEDTIME 90 days uouczgaqebe-pdieifsts-myyncvhr 100-62.5-25 mcg (Trelegy Ellipta) 1 ea inhalation DAILY garlic 2,000 mg PO DAILY hydrochlorothiazide 1 tab PO DAILY ipratropium bromide intranasal ketoconazole 2% 1 appl topical MO loratadine (Claritin) 10 mg PO DAILY memantine 10 mg PO BID 90 days multivitamin 1 tab PO DAILY omega 0-gox-uzf-fish oil 1,000 (120-180) mg (Fish Oil) 1 cap PO DAILY polyethylene glycol 3350 (Miralax) 238 grams PO ONCE sertraline 50 mg PO DAILY 90 days simvastatin 1 tab PO BEDTIME umeclidinium 62.5 mcg/actuation (Incruse Ellipta) 1 puff inhalation DAILY HPI Comments Details: He was doing okay. Memory was stable. said he was doing good. She previously noted that he was losing a few words, getting stuck for words during conversations at times. Increased dose of sertraline seemed to be helping. Mood was okay, no recent anger outbursts.?He occasionally had some shaking his hands at night when resting that would stop when his pointed it out to him. He did not notice it much and it was not significantly bothersome. No functional impairment. No difficulty eating, drinking, or swallowing. Sleep was okay. He was still staying active, taking the dog for a walk 2-3x/day. No falls. He read the paper everyday.?Still not using hearing aids. Tinnitus was better some days than others, none at this time. Hx of short-term memory problems since 2020, repeating himself and having difficulty with names and simple words. Symptoms gradually worsening. Also complains of tinnitus, L > R, with some decreased hearing. 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 He uses oxygen via nasal cannula at night. [facility] Medical History Frontotemporal lobar degeneration MCI (mild cognitive impairment) Early onset Alzheimer's dementia COPD (chronic obstructive pulmonary disease) CKD (chronic kidney disease) Diabetes mellitus HTN (hypertension) Surgical History Hx of colonoscopy Cataract Hx of appendectomy Social History Household Members: Family Housing: House Patient Tobacco Use Status: Former Tobacco user Tobacco use type: Cigarette Cigarettes Per Day: 1 Years Smoked: >50 service: No Current occupational status: retired Review of Systems Const Denies chills, Denies daytime sleepiness, Denies difficulty sleeping, Denies fatigue, Denies fever(s), Denies frequent falls, Denies headache(s), Denies increased appetite, Denies poor appetite, Denies snoring, Denies weakness, Denies weight gain and Denies weight loss Eyes Denies loss of vision ENT Denies vertigo, Denies dizziness, Denies headache(s) and Denies neck pain Card Denies chest pain at rest, Denies chest pain with activity, Denies syncope, Denies leg edema, Denies palpitations, Denies dyspnea and Denies dyspnea on exertion Resp Denies cough, Denies dyspnea, Denies dyspnea on exertion and Denies snoring GI Denies abdominal pain, Denies constipation, Denies heartburn, Denies diarrhea and Denies nausea Denies urinary frequency, Denies urinary incontinence and Denies urinary urgency Musc Denies abnormal gait, Denies back pain, Denies myalgias, Denies arthralgias, Denies neck pain, Denies numbness and Denies tingling Neuro Denies abnormal gait, Denies vertigo, Denies dizziness, Denies syncope, Denies frequent falls, Denies headache(s), Denies lack of coordination, Denies loss of vision, Reports memory loss, Denies numbness, Denies Other visual disturbances, Denies restless legs, Denies seizure-like activity, Denies tingling, Denies paresthesias, Denies tremor(s) and Denies weakness Psych Denies anxiety, Reports depression, Denies auditory hallucinations, Reports memory loss and Denies visual hallucinations Endo Denies fatigue and Denies palpitations Physical Exam Const Other: General Appearance:? normal, in no acute distress. Heart:? S1, S2 normal, no murmurs. Lungs:? clear anteriorly and posteriorly. Musculoskeletal:? normal. Extremities:? no edema. Psych:? alert, as below Neuro Other: Abnormal Neurological Findings:?MMSE 21/30. Some word finding difficulties. Hard of hearing.? Mental Status: alert, as below. Cranial Nerves: Pupils are equal, round, and reactive to light. External ocular muscles are intact. Visual balderrama are full, no ptosis. Face is symmetrical, no facial weakness or droop. Facial sensations are normal. Tongue protrudes in midline. Palate elevates symmetrically. Shoulder shrugging is normal Motor Examination: Normal muscle tone, bulk and strength. No atrophy or fasciculations. No drift of the extended upper extremities. DTR 2+. Plantars are flexor. Sensory Exam: Normal light touch, temperature, pinprick, vibration, and joint- position sensations. Rhomberg sign is absent. Coordination: No ataxia. No titubation. Gait Exam: Within normal limits. Cerebellar Signs: Vzdqmg-ag-cawe is okay. Extrapyramidal System: No tremor, rigidity with normal facial expressions. No bradykinesia. No bradyphrenia. Normal arm swing and posture. No propulsion or retropulsion. Speech: Normal, some word finding difficulties MMSE Level of Consciousness: Alert. Orientation: Knows correct year, month, day and season. Not date. Knows correct city, county and state. Knows correct location and floor. Registration: Able to register 3 objects. Attention: Unable to do serial 7's Recall: Able to recall 0 out of 3 objects. Language: Normal spontaneous speech, fluency, repetition, naming, comprehension, reading, and writing. Total Score: 21/30. Results Reviewed Results Reviewed: 12/24/22 EEG- WNL 08/12 MRI shows diffuse volume loss and mild microvascular disease. Assessment & Plan Assessment & Plan (1) MCI (mild cognitive impairment): Code(s): G31.84 - Mild cognitive impairment of uncertain or unknown etiology Category: Medical Plan: Continue donepezil 10mg 1 tablet at bedtime Continue memantine 10mg 1 tablet twice a day Continue sertraline 50mg 1 tablet daily Stay physically and socially active. (2) Frontotemporal lobar degeneration: Code(s): G31.09 - Other frontotemporal neurocognitive disorder; F02.80 - Dementia in other diseases classified elsewhere, unspecified severity, without behavioral disturbance, psychotic disturbance, mood disturbance, and anxiety Category: Medical Plan . Coding Level of Care Code Est Pt Level 4 (93908) Diagnoses MCI (mild cognitive impairment) G31.84 Frontotemporal lobar degeneration G31.09; F02.80
--- OUTSIDE RECORDS SUMMARY | 2025-05-16 15:11 | XMS_ITS | Data Portability ---
Author Organization [place] [facility], Allergy Address [address] [facility] [address] [place] [phone] Assessment No assessment recorded. Plan of Treatment Reminders Order Date Submit Date Provider Last Modified By Organization Details Last Modified Time Details Appointments None recorded. Lab None recorded. Referral None recorded. Procedures None recorded. Surgeries None recorded. Imaging None recorded. Medication Orders ipratropium bromide 21 mcg (0.03 %) nasal spray 2023 024 [facility][id number], [address], [place], [address], 11:44:44 Patient TargetsNo targets recorded. Patient InstructionsNo instructions recorded. Reason for Referral None Reported. Results Created Date Observation Date Name Description Value Unit Range Abnormal Flag Note LastModifiedBy Organization Detail LastModifiedTime 03/10/20 24 12/16/2023 terei ng/daniele perezos tic resul t No observ ation record ed. [email or web address] Not Available 01:12:25 Result Notes None recorded. 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 Procedures Surgical History Date Name Laterality Status Provider Name and Address Organization Details Recorded Time 12/16/2023 Comp Audio with Tymps - 46637 & 02575 completed KENZIE ADDISON MA, CCC-A [address] [place] [address], [phone], [facility] - [facility] 12/16/2023 11:14:48 12/16/2023 NasalEndosc opy_DP completed KAYLIN HAYS MD [address] [place] [address], [phone], [facility] - [facility] 12/16/2023 11:47:18 Imaging Results None recorded. Procedure Notes None recorded. Medical Equipment None Reported. Medications Name Sig Start Date Stop Date Status Note LastModified by Organization Details LastModified Time ipratropium bromide 21 mcg (0.03 %) nasal spray SPRAY 2 SPRAYS BY INTRANASAL ROUTE 3 TIMES A DAY active Not Available Not Available Not Available Vitals Date Recorded Body height Body mass index (BMI) Body weight Provider Name and Address Organization Details Last Updated DateTime 12/16/2023 167.64 cm 27.3 kg/m2 68137.11 g Ashley Zarate [facility] 12/16/2023 11:34:09 Social History None recorded. Functional Status None recorded. Mental Status None recorded. Family History Nothing Reported. Medical History No medical history recorded. Past Encounters Encounter ID Performer Location Encounter Start Date Encounter Closed Date Diagnosis/Indication Diagnosis SNOMED-CT Code Diagnosis ICD10 Code Diagnosis IMO Codes Diagnosis Note [id number] KAYLIN HAYS MD [facility] [address] [address] 12/16/2023 09:47:59 12/16/2023 12:43:03 Sensorineural hearing loss of bilateral ears 217696295 H90.3 For both ears, normal hearing thru 1000Hz sloping to a mild to profound SNHL.Good speech clarity bilaterall y.Type A tympanogra ms for both ears. I discussed masking for tinnitus. I copied his audio so he can have his hearing aids adjusted. If they do not work well I discussed he can have a hearing aid evaluation here. Vasomotor rhinitis 16776 03 J30.0 Nasal drip is likely due to vasomotor rhinitis. I will send ofeliaatrspenser rodriguez to try. Health Concerns Section Related Observation LastModified by Organization Detai ls LastModified Time None Recorded Concern Status LastModified by Organization Details LastModified Time None Recorded Advance Directives Directive None Recorded Payers Insurance Date Sequence Insurance Name Policy Number Policy Pascal Covered Member ID Pascal Member ID Guarantor Name 03/08/2024 1 [place] [id number] Edward E Barclay [id number] Edward Barclay 03/08/2024 1 [place] [employer] SERVICES Edward E Barclay Jr [id number] [place] Barclay 03/08/2024 2 [place] [id number] Edward E Barclay [id number] Edward Barclay Notes Date Note Type Note Provider Name and Address Organization Details Recorded Time 12/16/2023 text/html ROS as noted in the HPI He has tinnitus. He has noted some hearing loss. Uses hearing aids. Does not wear hearing aids. He has rhinorrhea on both sides in the am when he wakes up. It is not seasonal. He has tried flonase without benefit. Denies runny nose with eating and temperature change. KAYLIN HAYS MD [address] [place] [address], [phone], [facility] - [facility] 12/16/2023 11:48:06
--- OUTSIDE RECORDS SUMMARY | 2025-05-16 15:11 | XMS_ITS | Clinical Summary ---
Author Organization [facility] Address [address] [place] [address] Phone Care Team Providers Care Senior Director Marketing Name Role Phone Gabriel Fajardo MD Primary Care Provider Gabriel Fajardo MD Unavailable [phone] Melly Puente DPM, Erik Unavailable [phone] Noel Last MD Unavailable Bennett Daniels MD Unavailable Allergies No known active allergies Medications loratadine (CLARITIN) 10 mg tablet Take 10 mg by mouth daily. Active cyanocobalamin, vitamin B-12, 1000 MCG tablet Take 1,000 mcg by mouth daily. Active omega 5z-FJA-GCL-fish oil [phone] capsule Take 1 [...] - 05/03/2025 11:59 PM EDT Hospital Encounter [facility] Laboratory [address] [place] [address] Gabriel Fajardo MD Discharge Disposition: Home or Self Care 04/17/2025 Refill [facility] Internal Medicine [address] [place] [address] Gracia Duran CNP Medication Refill 03/08/2025 9:17 AM EDT - 03/08/2025 11:59 PM EDT Hospital Encounter [facility] Laboratory [address] [place] [address] Gabriel Fajardo MD Discharge Disposition: Home or Self Care 02/23/2025 11:30 AM EDT Office Visit [facility] Internal Medicine [address] [place] [address] Gabriel Fajardo MD Type 2 diabetes mellitus [...] Description 10/03/2025 11:30 AM EDT Office Visit [facility] Internal Medicine [address] [place] [address] Gabriel Fajardo MD [address] [place] [address] [email or web address] Health Maintenance Due Date Last Done Comments [...] (05/03/2025 9:41 AM EDT) COLOR Yellow Yellow [facility] CLARITY Clear [facility] GLUCOSE Negative Negative [facility] BILI Negative Negative [facility] KETONES Negative Negative [facility] SPECIFIC GRAVITY 1.020 1.005 - 1.030 [facility] BLOOD Negative Negative [facility] PH 6.0 5.0 - 8.0 [facility] Protein-UA 2+(A) Negative [facility] NITRITE Negative Negative [facility] Leukocyte esterase, ur Negative Negative [facility] Urine (Urine) 05/03/2025 9:4 1 AM EDT 05/03/2025 9:44 AM EDT Gabriel Fajardo MD URINE ORDERABLES Final Result Performing Organization Address [facility] Co de Phone Number [address] [address] * (ABNORMAL) Urine sediment (05/03/2025 9:41 AM EDT) WBC 5-10(A) NONE SEEN /hpf [facility] RBC 3-5(A) NONE SEEN /hpf [facility] URINE EPITHELIAL 0-4(A) NONE SEEN [facility] MUCUS 1+(A) NONE SEEN /hpf [facility] BACTERIA Trace(A) NONE SEEN /hpf [facility] CAST 0-2 [facility] Comment:HYALINE CAST 05/03/2025 9:41 AM EDT 05/03/2025 9:44 AM EDT Gabriel Fajardo MD URINE ORDERABLES Final Result Performing Organization Address City/[facility]/ZIP Co de Phone Number [address] [address] * (ABNORMAL) Comprehensive metabolic panel (05/03/2025 9:25 AM EDT) Only the most recent of2 resultswithin the time period is included. SODIUM 143 133 - 146 mmol/L [facility] POTASSIUM 4.1 3.3 - 5.1 mmol/L [facility] CHLORIDE 103 96 - 108 mmol/L [facility] CO2 26 21 - 35 mmol/L [facility] BUN 29(H) 6 - 19 mg/dL [facility] CREATININE 2.20(H) 0.5 - 1.5 mg/dL [facility] GLUCOSE 128(H) 70 - 99 mg/dL [facility] ALBUMIN 4.6 3.9 - 4.8 g/dL [facility] TOTAL PROTEIN 7.5 6.5 - 8.0 g/dL [facility] CALCIUM 9.5 8.4 - 10.3 mg/dL [facility] ALKALINE PHOSPHATASE 165(H) 39 - 117 U/L [facility] TOTAL BILIRUBIN 0.4 0.0 - 1.2 mg/dL [facility] AST 36 0 - 37 U/L [facility] ALT 40 0 - 40 U/L [facility] GLOBULIN 2.9 1 - 4.8 g/dL [facility] EGFR 30(L) >59 mL/min/1.7 3m2 [facility] Comment:Estimated glomerular filtration rate calculated using the CKD-EPI refit equation. ANION GAP 18 10 - 20 mmol/L [facility] Blood 05/03/2025 9:25 AM EDT 05/03/2025 9:29 AM EDT us Gabriel Fajardo MD LAB BLOOD ORDERABLES Final Re sult [address] [address] * (ABNORMAL) CBC and differential (05/03/2025 9:25 AM EDT) Only the most recent of2 resultswithin the time period is included. WBC 9.07 4.00 - 11.00 K/uL [facility] RBC 4.43(L) 4.50 - 5.90 M/uL [facility] HGB 13.2(L) 13.5 - 17.5 g/dL [facility] HCT 40.6(L) 41.0 - 53.0 % [facility] PLT 219 150 - 450 K/uL [facility] MCV 91.6 80.0 - 100.0 fL [facility] MCH 29.8 27.0 - 31.0 pg [facility] MCHC 32.5 32.0 - 36.0 g/dL [facility] RDW 12.5 11.5 - 14.5 % [facility] MPV 11.0 8.4 - 12.0 fL [facility] NRBC 0.00 0.00 /100 WBCs [facility] ABSOLUTE NRBC 0.00 0.00 K/uL [facility] DIFF METHOD Auto [facility] NEUTS 59.1 48.0 - 76.0 % [facility] LYMPHS 27.8 18.0 - 41.0 % [facility] MONOS 9.2 4.0 - 11.0 % [facility] EOS 3.0 0.0 - 5.0 % [facility] BASOS 0.2 0.0 - 1.5 % [facility] Granulocytes, immature (%) 0.7 0.0 - 0.9 % [facility] ABSOLUTE NEUTS 5.37 1.92 - 7.60 K/uL [facility] ABSOLUTE LYMPHS 2.52 0.72 - 4.10 K/uL [facility] ABSOLUTE MONOS 0.83 0.16 - 1.10 K/uL [facility] ABSOLUTE EOS 0.27 0.00 - 0.50 K/uL [facility] ABSOLUTE BASOS 0.02 0.00 - 0.15 K/uL [facility] Granulocytes, immature 0.06 0.00 - 0.09 K/uL [facility] Blood 05/03/2025 9:25 AM EDT 05/03/2025 9:29 AM EDT us Gabriel Fajardo MD LAB BLOOD ORDERABLES Final Re sult [facility] [address] [place] [address] * (ABNORMAL) Hemoglobin A1c (03/08/2025 9:16 AM EDT) HEMOGLOBIN A1C 6.2(H) 4.3 - 5.8 % [facility] Blood 03/08/2025 9:16 AM EDT 03/08/2025 9:21 AM EDT Gabriel Fajardo MD LAB BLOOD ORDERABLES Final Re sult Performing Organization Address [facility] Co de Phone Number [address] [address] * (ABNORMAL) Lipid panel (03/08/2025 9:16 AM EDT) HDL 48 mg/dL [facility] Comment: Interpretation <40 mg/dL: Low HDL cholesterol (major risk factor for CHD) Greater than or equal to 60 mg/dL: High HDL cholesterol ( negative risk factor for CHD) HDL - cholesterol is affected by a number of factors, e.g. smoking, excerise, hormones, sex and age. CHOLESTEROL 210 0 - 240 mg/dL [facility] TRIGLYCERIDES 295(H) 30 - 160 mg/dL [facility] LDL 103 50 - 129 mg/dL [facility] Comment: LDL levels in terms of risk for coronary heart disease: <100 mg/dL: Optimal 100-129 mg/dL: Near or above optimal 130-159 mg/dL: Borderline high 160-189 mg/dL: High >190 mg/dL: Very High CARDIAC RISK RATIO 4.4 3.4 - 5.0 [facility] Blood 03/08/2025 9:16 AM EDT 03/08/2025 9:20 AM EDT Gabriel Fajardo MD LAB BLOOD ORDERABLES Final Re sult Performing Organization Address [facility]/ZIP Co de Phone Number [address] [address] * (ABNORMAL) Microalbumin/creatinine ratio, random urine (02/23/2025 2:47 PM EDT) URINE MICROALBUMIN 65.6(H) 0 - 2.3 mg/dL [facility] URINE CREATININE 177 mg/dL [facility] MICROALB/CRE RATIO 370.6(H) 0 - 20 mg/g Cre [facility] Urine (Urine) 02/23/2025 2:4 7 PM EDT 02/23/2025 8:37 PM EDT Gabriel Fajardo MD URINE ORDERABLES Final Result Performing Organization Address City/[facility]/ZIP Co de Phone Number [address] [address] * DIABETES EYE EXAM FOR RESULT ENTRY ONLY (01/07/2024) EYE EXAM no retinopathy Historical Provider HEALTH MAINTENANCE Final Result * Hepatitis C antibody, qualitative (03/07/2020 8:56 AM EDT) HCV NON-REACTIV E NON-REACTI VE [facility] Blood 03/07/2020 8:56 AM EDT 03/07/2020 10:57 AM EDT Gabriel Fajardo MD LAB BLOOD ORDERABLES Final Re sult Performing Organization Address [facility] Co de Phone Number [address] [address] * COLONOSCOPY FOR RESULT ENTRY ONLY (03/02/2019) Historical Provider HEALTH MAINTENANCE Final Result from Last 3 Months or Most Recently Relevant to Health Maintenance Insurance MEDICARE PART A & B [employer] SUPPLEMENT MEDICARE PART A & B [employer] SU[employer] MEDICARE PART A & B [employer] SU[employer] MEDICARE PART A & B [employer] SUPPLEMENT MEDICARE PART A & B [employer] SUPPLEMENT MEDICARE PART A & B [employer] SUPPLEMENT MEDICARE PART A & B [employer] SUPPLEMENT MEDICARE PART A & B [employer] SUPPLEMENT MEDICARE PART A & [facility] MEDEX SUPPLEMENT Care Teams Senior Director Marketing Relationship Specialty Start Date End Date Gabriel Fajardo MD [address] [place] [address] PCP - General 05/08/17 Gabriel Fajardo MD [address] [place] [phone] [email or web address] Insurance Assigned Provider 10/25/23 Felice Pickard DPM [address] [place] [address] Podiatry 09/07/19 Noel Last MD [address] [place] [address] [place] [id number] Ophthalmology 03/10/20 Bennett Daniels MD [address] [place] [address] Pulmonary Disease 03/12/21 Additional Source Comments The information contained in this document represents components of the legal health record. It is not the complete legal health record.[facility]
--- OUTSIDE RECORDS SUMMARY | 2025-05-16 15:11 | XMS_ITS | Patient Health Record ---
Author Organization [facility] Address [address] [place] [address] Care Team Providers Care Laboratory Operations Coordinator Name Role Phone Gabriel Fajardo MD Primary Care Provider Unavaila Felice Bullard Unavailable [phone] Allergies No Known Allergies Results Component Value [...] Problem Acquired hammer toe of right foot (5564262216263 105) Other hammer toe(s) (acquired), right foot (M20.41) Active confirmed Response to treatment,I mprovement Problem Type 2 diabetes mellitus with peripheral angiopathy (473571861) Type 2 diabetes mellitus with diabetic peripheral angiopathy without gangrene (E11.51) Active confirmed Problem Acquired hammer toe of left foot (6692632160935 103) Other hammer toe(s) (acquired), left foot (M20.42) Active confirmed Response to treatment,I mprovement Vital Signs Respiratory Rate 130 /min 12/10/2024 Blood pressure diastolic 50 mm Hg 03/22/2025 Height 5 ft 6 in in 03/22/2025 Blood pressure systolic 140 mm Hg 03/22/2025 Weight 164 lbs 03/22/2025 BMI 26.47 kg/m2 03/22/2025 Procedures Procedure Date Ordered Date Performed Result Body Sit e 73266-DAVWCCE NAIL, 6 OR MORE 09/03/2024 N/A 25329-Tsnr Destruction, 1-14 09/03/2024 N/A 01208-NCPL SKIN LESIONS, OVER 4 09/03/2024 N/A 78994-PRMZOFD NAIL, 6 OR MORE 12/10/2024 N/A 84803-Rhff Destruction, 1-14 12/10/2024 N/A 51751-JEKP SKIN LESIONS, OVER 4 12/10/2024 N/A 30812-CGOHYUE NAIL, 6 OR MORE 03/22/2025 N/A 63877-CHBM SKIN LESIONS, OVER 4 03/22/2025 N/A Encounters Encounter Location Date Provider Diagnosis [address] [address] 09/03/2024 Felice Melly Type 2 diabetes mellitus with diabetic peripheral angiopathy without gangrene E11.51 ; Plantar wart B07.0 ; Tinea unguium B35.1 ; Pain in right toe(s) M79.674 ; Pain in left toe(s) M79.675 ; Other hammer toe(s) (acquired), right foot M20.41 ; Other hammer toe(s) (acquired), left foot M20.42 and Pain in left foot M79.[address] [address] 12/10/2024 Felice Pickard Type 2 diabetes mellitus with diabetic peripheral angiopathy without gangrene E11.51 ; Plantar wart B07.0 ; Tinea unguium B35.1 ; Pain in right toe(s) M79.674 ; Pain in left toe(s) M79.675 ; Other hammer toe(s) (acquired), right foot M20.41 ; Other hammer toe(s) (acquired), left foot M20.42 and Pain in left foot M79.[address] [address] 03/22/2025 Felice Nobleunier Type 2 diabetes mellitus [...] Test Name Order Date Hemoglobin A1c 03/24/2015 00451-UDVWQXX NAIL, 6 OR MORE 09/22/2015 25212-BGDFAVU NAIL, 6 OR MORE 03/24/2015 38012-STRMNHG NAIL, 6 OR MORE 03/22/2016 87790-XWHGVOM NAIL, 6 OR MORE 09/20/2016 95545-EAFQHQO NAIL, 6 OR MORE 12/08/2012 02851-OJYVHNA NAIL, 6 OR MORE 03/23/2013 61629-ZDTRMAX NAIL, 6 OR MORE 09/21/2013 79072-JVXRJIH NAIL, 6 OR MORE 03/25/2014 99978-RTBSNDT NAIL, 6 OR MORE 09/23/2014 77709-SOPCODO NAIL, 6 OR MORE 03/28/2017 30705-JAKBUEU NAIL, 6 OR MORE 10/17/2017 67847-NMCIDJB NAIL, 6 OR MORE 04/17/2018 27189-XZABWID NAIL, 6 OR MORE 10/09/2018 57260-RBPDBYU NAIL, 6 OR MORE 04/06/2019 15509-MTHKZHE NAIL, 6 OR MORE 10/05/2019 89063-VQXCRRN NAIL, 6 OR MORE 04/07/2020 21765-RBIFWNS NAIL, 6 OR MORE 10/06/2020 71082-JCTBVVQ NAIL, 6 OR MORE 04/06/2021 30375-HZZKXLI NAIL, 6 OR MORE 11/09/2021 33477-THYSPYD NAIL, 6 OR MORE 06/18/2022 24363-UAVLOLR NAIL, 6 OR MORE 12/17/2022 35771-KISIYTO NAIL, 6 OR MORE 06/17/2023 34900-ZAFMYRS NAIL, 6 OR MORE 02/24/2024 98061-ZRZVBUW NAIL, 6 OR MORE 09/03/2024 22079-DCVYPQD NAIL, 6 OR MORE 12/10/2024 77577-VXDBBXT NAIL, 6 OR MORE 03/22/2025 44868-Bjuv Destruction, 1-14 12/08/2012 47537-Wpoh Destruction, 1-14 12/10/2024 28674-Fgea Destruction, 1-14 09/03/2024 80946-Sfyo Destruction, 1-14 02/24/2024 47556-Fbmn Destruction, 08-0306/17/2023 18220-Hpfy Destruction, 08-0312/17/2022 31374-Hzzr Destruction, 08-0306/18/2022 98782-Lzjx Destruction, 08-0311/09/2021 88425-Tttl Destruction, 08-0304/06/2021 53471-Snjj Destruction, 08-0310/06/2020 68839-Utgr Destruction, 08-0304/07/2020 55812-Mxli Destruction, 08-0310/05/2019 60325-Lbdf Destruction, 08-0304/06/2019 94376-Vfli Destruction, 08-0310/09/2018 70694-Wran Destruction, 08-0304/17/2018 37175-Iiie Destruction, 08-0310/17/2017 53500-Gnbk Destruction, 08-0309/23/2014 54629-Grzk Destruction, 08-0303/25/2014 14788-Bzkm Destruction, 08-0309/21/2013 65420-Fwca Destruction, 08-0303/23/2013 69792-Jldm Destruction, 08-0309/20/2016 93751-Ukiw Destruction, 08-0303/28/2017 71044-Aexi Destruction, 08-0303/22/2016 83995-Mosc Destruction, 08-0303/24/2015 36909-Zvta Destruction, 08-0309/22/2015 45490-AICI SKIN LESIONS, OVER 4 06/18/20 22 25459-HEUL SKIN LESIONS, OVER 4 12/18/19 23 53625-HAJN SKIN LESIONS, OVER 4 06/17/20 23 63949-MKBH SKIN LESIONS, OVER 4 02/24/20 24 31251-GWTJ SKIN LESIONS, OVER 4 09/03/19 25 41216-VUAR SKIN LESIONS, OVER 4 12/11/19 25 83574-CWOE SKIN LESIONS, OVER 4 03/22/20 25 41169-Btyj. Subungual Hematoma 4 Next Appt Details Provider Name:Felice Pickard , 07/05/2025 03:30:00 PM, [address] [place] [address], [place], [address], Insurance Providers Payer Name Payer Address Payer Phone Subscriber Number Group Number Insured Name Patient Relationship to Insured Coverage Start Date Coverage End Date Medicare National [employer] [address] [place] [address] [id number] Justin Barclay Self - patient is the insured 3 [employer] Blue [employer] [address] [place] [address] [id number] Justin Barclay Self - patient is the insured Medical (General) History Medical History History ICD Code lung disease measles chicken pox cholesterol Diabetic type ll Surgical History Surgery Date(Month/Year) appendectomy 1963 colonoscopy 01/2014 cataract surgery 09/28/2018
--- OUTSIDE RECORDS SUMMARY | 2025-05-16 15:11 | XMS_ITS | Clinical Summary ---
Author Organization [facility] Address [address] [place] [address] Phone Care Team Providers Care Telephone Plant Power Operator Name Role Phone Gabriel Fajardo MD Primary Care Provider [phone] Allergies No known active allergies Medications albuterol [...] (LOVAZA) 1 gram capsule Take by mouth. [place]-3 Fatty Acids (FISH OIL TRIPLE STRENGTH) 1400 [...] Trelegy Ellipta 100-62.5-25 mcg inhalerIndicatio ns:Emphysema, unspecified ([facility] V24, [facility] V28) INHALE 1 PUFF INTO THE LUNGS DAILY FOR 30 DAYS. 60 each 11 Active Active Problems Problem Noted Date Diagnosed Date Pulmonary nodule 08/27/2022 Overview (05/21/2024): Last Assessment & Plan: 77 y/o gentleman who is part of [facility] had a Lung RADS 4A finding on CT scan from May 08, 2022. 1. His most recent CT scan performed on 08/24/22 showed resolution of nodules within the the left upper lobe and no new or enlarging pulmonary nodules seen. Based upon these findings, the patient will be referred back to the [facility] for his annual CT scan to [...] 10/14/2017 Diabetes mellitus type 2, un complicated ([facility] V24, [facility] V28) 10/14/2017 Hyperlipidemia 10/14/2017 Tobacco use disorder 10/14/2017 Chronic obstructive pulmonar y disease (COPD) ([facility] V24, [facility] V28) 06/02/2017 Encounters Date Type Department Care Team Description 03/03/2025 11:30 AM EDT Office Visit Pulmonology - [address] [place] [address] Bennett Daniels MD Chronic obstructive pulmonary disease, unspecified COPD type ([facility] V24, [facility] V28) (Primary Dx) from Last 3 Months [...] abuse Chronic obstructive pulmonar y disease (COPD) ([facility] V24, [facility] V28) 06/02/2017 DX:Chronic obstructi ve pulmonary disease (COPD) (HCC) Diabetes mellitus type 2, uncomplicated ([facility] V24, [facility] V28) 11/25/2017 DX:Diabetes mellitus type 2, uncomplicated [...] 1:15 PM EST Office Visit Pulmonology - [address] [place] [address] Bennett Daniels MD [facility] [place] [address] Health Maintenance Due Date Last Done Comments [...] AM EST Narrative 08/28/2023 12:49 PM EST [facility] Diagnostic Imaging Department [address] [place], [place] [id number] Patient: PATTITEVINCARI Flo /Age/Sex: 1945 - 78 - M Unit#: [id number] Location/Status: SPDICATLS/REG CLI Mnemonic[facility] Ordering Physician: ARYA FREEDMAN MD CT Lung [...] Procedure Note Luda Erwin MD - 03/08/2024 [facility] Diagnostic Imaging Department [address] [place], [place] [id number] Patient: PATTIJUSTIN Rossi /Age/Sex: 1945 - 78 - M Unit#: [id number] Location/Status: SPDICATLS/REG CLI Mnemonic/[facility] Ordering Physician: ARYA FREEDMAN MD [...] Most Recently Relevant to Health Maintenance Insurance [facility] MEDICARE Care Teams Telephone Plant Power Operator Relationship Specialty Start Date End Date Gabriel Fajardo MD [address] [place] [address] PCP - General Internal Medicine 06/02/17
--- OUTSIDE RECORDS SUMMARY | 2025-05-16 15:11 | XMS_ITS | Clinical Summary ---
Author Organization [facility] Address [address] [address] Phone Care Team Providers Care Medical Administrator Name Role Phone Gabriel Fajardo MD Primary Care Provider [phone] Allergies No known active allergies Medications amLODIPine [...] puff 1 (one) time each day Active [place]-3 Fatty Acids 1400 MG capsule Take 1 [...] Orders Only [facility] [address] [phone] Sebastián Timmons MD [address] [phone] Stage 3a chronic kidney disease (HCC); Proteinuria, not otherwise specified; Nephrolithiasis; Hypertension; Dyslipidemia; Diabetes mellitus, not otherwise specified (HCC); Cyst of kidney 07/05/2025 8:20 AM EST Office Visit [facility] [address] [address] Sebastián Timmons MD [address] [address] Health Maintenance Due Date Last [...] 9.5 8.7 - 10.7 mg/dL eGFR Non-Afr Nigerian 41 Total Bilirubin 0.5 MG/DL ALT (SGPT) 55 U/L AST (SGOT) 58 U/L Alkaline Phosphatase 112 U/L Hemoglobin A1C 6.2(A) 4.0 - 6.0 05/30/2023 us Historical Provider LAB BLOOD ORDERABLES Edit ed Result - Final from Last 3 Months or Most Recently Relevant to Health Maintenance Insurance Medicare [facility] Medicare [facility] Care Teams Medical Administrator Relationship Specialty Start Date End Date Gabriel Fajardo MD [address] [place] [address] PCP - General Internal Medicine 06/05/23
== END 2025-05-16 12:02 | disposition home or self-care (01) ==
LOC: HO.HSM 11:45
PROVIDERS: PCP Internal Medicine; Visit Provider Registered Nurse
DX: G31.84 Mild cognitive impairment of uncertain or unknown etiology (principal); G31.09 Other frontotemporal neurocognitive disorder; F02.80 Dementia in other diseases classified elsewhere, unspecified severity, without behavioral disturbance, psychotic disturbance, mood disturbance, and anxiety
CPT/HCPCS: 99214

== ENCOUNTER → 2025-05-16 11:44 | Outpatient (BNVA) | payer MEDICARE, SELFPAY | PROVIDERS: PCP Internal Medicine; Visit Provider Registered Nurse | DX: G31.09 Other frontotemporal neurocognitive disorder (principal); F02.80 Dementia in other diseases classified elsewhere, unspecified severity, without behavioral disturbance, psychotic disturbance, mood disturbance, and anxiety | CPT/HCPCS: 99212 ==

== ENCOUNTER 2025-06-09 06:45 | Day surgery (SDC) | payer MEDICARE, SELFPAY ==
--- OUTSIDE RECORDS SUMMARY | 2023-12-16 05:15 | XMS_ITS ---
Author Organization [facility] Address [address] [place] [id number] Care Team Providers Care Wooling Machine Operator Name Role Phone Gabriel Fajardo MD Primary Care Provider Unavaila Felice Bullard Unavailable [phone] Becker Encounters Encounter Location Date Provider Diagnosis [address] [address] 12/16/2023 Felice Pickard Plan Of Treatment Next Appt Details Provider Name:Felice Pickard , 07/05/2025 03:30:00 PM, [address] [place] [address], [phone], Progress Notes * Justin BARCLAY DOB:1944 (80 yo M)Acc No.[id number]:12/16/2023 Progress Note Patient: Justin DEVINE Jr Provider: Flo Pickard DPM :1945 A ge:78 Y S ex:Male Date:12/16/2023 Address:[address] [place] [address] Pcp:Gabriel Fajardo MD Subjective: * Chief Complaints: * [address] Becker. * Medical History: Objective: * Vitals: Assessment: Plan: * Treatment: * Images: * The named appointment provid er may or may not be the originator of this progress note, and it is not deemed complete until electronically signed by the appointment provider. Sign off status: Pending * Provider: Flo Pickard DPM Date: 0 12/16/2023 Generated for Emelina Almanzar on: 01:42 PM EDT
--- OUTSIDE RECORDS SUMMARY | 2024-08-24 05:00 | XMS_ITS ---
Author Organization [facility] Address [address] [place] [id number] Care Team Providers Care Noodle Press Operator Name Role Phone Gabriel Fajardo MD Primary Care Provider UnavailFelice Jon Unavailable [phone] Encounters Encounter Location Date Provider Diagnosis [address] [address] 08/24/2024 Felice Pickard Plan Of Treatment Next Appt Details Provider Name:Felice Pickard , 07/05/2025 03:30:00 PM, [address] [place] [address], [phone], Progress Notes * Justin BARCLAY DOB:1944 (80 yo M)Acc No.[id number]:08/24/2024 Progress Note Patient: Justin DEVINE Provider: Flo Pickard DPM :1945 A ge:79 Y S ex:Male Date:08/24/2024 Address:[address] [place] [address] Pcp:Gabriel Fajardo MD Subjective: * Chief Complaints: * * Medical History: Objective: * Vitals: Assessment: Plan: * Treatment: * Images: * The named appointment provid er may or may not be the originator of this progress note, and it is not deemed complete until electronically signed by the appointment provider. Sign off status: Pending * Provider: Flo Pickard DPM Date: 0 08/24/2024 Generated for Emelina lucas/Vijaya/Marita on: 01:43 PM EDT
--- OUTSIDE RECORDS SUMMARY | 2025-05-13 13:43 | XMS_ITS | Clinical Summary ---
Author Organization [address] [facility] Address [address] [place] [address] Phone Care Team Providers Care Family Coach Name Role Phone Gabriel Fajardo MD Primary Care Provider [phone] Allergies No known active allergies Medications albuterol [...] (LOVAZA) 1 gram capsule Take by mouth. [place]-3 Fatty Acids (FISH OIL TRIPLE STRENGTH) 1400 [...] Trelegy Ellipta 100-62.5-25 mcg inhalerIndicatio ns:Emphysema, unspecified ([facility] V24, [facility] V28) INHALE 1 PUFF INTO THE LUNGS DAILY FOR 30 DAYS. 60 each 11 Active Active Problems Problem Noted Date Diagnosed Date Pulmonary nodule 08/27/2022 Overview (05/21/2024): Last Assessment & Plan: 77 y/o gentleman who is part of [facility] had a Lung RADS 4A finding on CT scan from May 08, 2022. 1. His most recent CT scan performed on 08/24/22 showed resolution of nodules within the the left upper lobe and no new or enlarging pulmonary nodules seen. Based upon these findings, the patient will be referred back to the [facility] for his annual CT scan to [...] 10/14/2017 Diabetes mellitus type 2, un complicated ([facility] V24, [facility] V28) 10/14/2017 Hyperlipidemia 10/14/2017 Tobacco use disorder 10/14/2017 Chronic obstructive pulmonar y disease (COPD) ([facility] V24, [facility] V28) 06/02/2017 Encounters Date Type Department Care Team Description 03/03/2025 11:30 AM EDT Office Visit Pulmonology - [address] [place] [address] Bennett Daniels MD Chronic obstructive pulmonary disease, unspecified COPD type ([facility] V24, [facility] V28) (Primary Dx) from Last 3 Months Immunizations Immunization Administration Dates Next Due Influenza Quadravalent, 0.5m [...] abuse Chronic obstructive pulmonar y disease (COPD) ([facility] V24, [facility] V28) 06/02/2017 DX:Chronic obstructi ve pulmonary disease (COPD) (HCC) Diabetes mellitus type 2, uncomplicated ([facility] V24, [facility] V28) 11/25/2017 DX:Diabetes mellitus type 2, uncomplicated (HCC) Hyperlipidemia 11/25/2017 DX:Hyperlipidemi a Allergic rhinitis 11/25/2017 [...] Cigarettes Q uit: 05/21/2022 Smokeless Tobacco: Never Tobacco Cessation:Counseling Given: Not Answered Alcohol Use Standard Drinks/Week Comments Not Currently 4 (1 standard drink = 0.6 oz pur e alcohol) Sex and Gender Information Value Date Recorded Sex Assigned at Not on file Legal Sex Male 11:56 PM EST Gender Identity Not on file Sexual Orientation Not on file Obstetrics History Last Filed Vital Signs Vital Sign Reading Time Taken Comments Blood Pressure 144/56 03/03/2025 11:46 AM EDT Pulse 73 03/03/2025 11:46 AM EDT Temperature 36.4 C (97.6 F) 03/03/2025 11:46 AM EDT Respiratory Rate 20 03/03/2025 11:46 AM EDT Oxygen Saturation 91% 03/03/2025 11:46 AM EDT Inhaled Oxygen Concentration - - Weight 72.3 kg (159 lb 6.4 oz) 03/03/2025 11:46 AM EDT Height 167.6 cm (5' 6 ) 03/03/2025 11:46 AM EDT Body Mass Index 25.73 03/03/2025 11:46 AM EDT Plan of Treatment Upcoming Encounters Date Type Department Care Team (Late st Contact Info) Description 08/31/2025 1:15 PM EST Office Visit Pulmonology - [address] [place] [address] Bennett Daniels MD [address] [facility] [address] [place] [address] Health Maintenance Due Date Last Done Comments Diabetes: Annual Foot Exam 01/29/1956 Diabetes: Annual Retina Eye Exam 01/29/1956 Colorectal Cancer Screening: Colonoscopy 02/04/2019 02/04/2014 Falls Risk Assessment 06/23/2022 Medicare Annual Wellness Visit 06/23/2022 Social Influencers of Health Screening 06/23/2022 Diabetes: Blood Sugar Control Test (HGBA1C) 07/04/2022 Depression Screening 07/21/2024 Lung Cancer Screening (Low Dose CT) 08/28/2024 08/28/2023, 05/08/2022, 05/06/2021 COVID-19 Vaccine ( season) 2025 05/03/2023, 05/06/2022, 04/13/2022, Additional history exists Influenza Vaccine (#1) 2025 , 05/03/2023, 04/16/2022, Additional history exists Diabetes: Annual Urine Albumin-Creatinine Ratio (uACR) 02/23/2026 02/23/2025, 05/30/2023, 09/18/2022, Additional history exists Diabetes: Annual GFR (Glomerular Filtration Rate) 03/08/2026 03/08/2025, 12/01/2024, 12/01/2024, Additional history exists Hypertension/CHF/CAD Annual BMP Blood Test 03/08/2026 03/08/2025, 12/01/2024, 12/01/2024, Additional history exists DTaP,Tdap,and Td Vaccines (4 - Td or Tdap) 03/12/2028 03/12/2018, 05/07/2012, 08/21/2003 Cholesterol Screening (Lipid Panel) 03/08/2030 03/08/2025, 04/01/2024 Pneumococcal Vaccine: 50+ Years Completed 05/20/2016, [...] AM EST Narrative 08/28/2023 12:49 PM EST [facility] Diagnostic Imaging Department [address] [place], [place] [id number] Patient: PATTITEVINCARI Flo /Age/Sex: 1945 - 78 - M Unit#: [id number] Location/Status: SPDICATLS/REG CLI Mnemonic/[facility] Ordering Physician: ARYA FREEDMAN MD CT Lung Screening Low Dose - 08/28/23 - 0948 Report Status:Signed PROCEDURE: Chest CT INDICATION: Current [...] Procedure Note Luda Erwin MD - 03/08/2024 [facility] Diagnostic Imaging Department [address] [place], [place] [id number] Patient: PATTIJUSTIN Rossi /Age/Sex: 1945 - 78 - M Unit#: [id number] Location/Status: SPDICATLS/REG CLI Mnemonic/Ordering Site: [facility] Ordering Physician: ARYA FREEDMAN MD CT [...] Sign date/Time: 08/28/23 1249 Arya Freedman MD IMG CT PROCEDURES Final Result from Last 3 Months or Most Recently Relevant to Health Maintenance Insurance [facility] MEDICARE Care Teams Family Coach Relationship Specialty Start Date End Date Gabriel Fajardo MD [address] [place] [phone] PCP - General Internal Medicine 06/02/17
--- OUTSIDE RECORDS SUMMARY | 2025-05-13 13:43 | XMS_ITS | Clinical Summary ---
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 Active cyanocobalamin, vitamin B-12, 1000 MCG tablet Take 1,000 mcg by mouth daily. Active omega 0c-RUZ-SLB-fish oil [phone] capsule Take 1 capsule by mouth daily. Active ONETOUCH ULTRA TEST Strp stripsIndicatio ns:Type 2 diabetes mellitus without complication USE DIRECTED [...] Take 2,000 mg by mouth daily. Active mometasone-form oterol (DULERA) 100-5 mcg/actuation HFAA Inhale 2 puffs into the lungs every morning. Active memantine (NAMENDA) 10 MG tablet Take 1 tablet by mouth 2 (two) times a day. 05/02/20 Active TRELEGY ELLIPTA 100-62.5-25 mcg inhalation powder Inhale 1 puff into the lungs daily. 05/03/20 Active albuterol 90 mcg/actuation inhalerIndicati ons:Acute exacerbation of COPD with asthma Inhale 2 puffs into the lungs every 6 (six) hours as needed for wheezing. 8 g 4 08/11/19 24 Active hydroCHLOROthia zide 12.5 MG tabletIndicatio ns:Essential hypertension TAKE 1 TABLET BY MOUTH EVERY DAY 90 tablet 3 08/23/19 25 Active sertraline (ZOLOFT) 25 MG tablet Take 25 mg by mouth every morning. 08/09/19 25 Active amLODIPine (NORVASC) 5 MG tablet Take 5 mg by mouth daily. Active simvastatin (ZOCOR) 10 MG tabletIndicatio ns:Hyperlipidem ia TAKE 1 TABLET BY MOUTH EVERY DAY IN THE EVENING 90 tablet 3 10/29/19 25 Active amLODIPine (NORVASC) 10 MG tabletIndicatio ns:Essential hypertension TAKE 1 TABLET BY MOUTH EVERY DAY 90 tablet 3 10/29/19 25 Active donepeziL (ARICEPT) 10 MG tablet Take 10 mg by mouth daily. 01/18/20 25 Active sertraline (ZOLOFT) 50 MG tablet Take 1 tablet by mouth every morning. 02/08/20 25 Active metFORMIN (GLUCOPHAGE-XR) 500 MG 24 hr tabletIndicatio ns:Type 2 diabetes mellitus without complication TAKE 1 TABLET BY MOUTH EVERY DAY WITH BREAKFAST 90 tablet 01/25/20 25 025 Discontinued metFORMIN (GLUCOPHAGE-XR) 500 MG 24 hr tabletIndicatio ns:Type 2 diabetes mellitus without complication TAKE 1 TABLET BY MOUTH EVERY DAY WITH BREAKFAST 90 tablet 1 04/18/20 25 025 Discontinued(Ot her) Active Problems Problem Noted Date Diagnosed Date Moderate Alzheimer's dementi a with mood disturbance, unspecified timing of dementia onset 02/23/2025 Allergic rhinitis 11/25/2017 Tubular adenoma of colon [...] Encounters Date Type Department Care Team Description 05/03/2025 9:25 AM EDT - 05/03/2025 11:59 PM EDT Hospital Encounter [facility] Laboratory [address] [place] [address] Gabriel Fajardo MD Discharge Disposition: Home or Self Care 04/17/2025 Refill [facility] Internal [facility] [address] [place] [address] Gracia Duran CNP Medication Refill 03/08/2025 9:17 AM EDT - 03/08/2025 11:59 PM EDT Hospital Encounter [facility] Laboratory [address] [place] [address] Gabriel Fajardo MD Discharge Disposition: Home or Self Care 02/23/2025 11:30 AM EDT Office Visit [facility] Internal Medicine [address] [place] [address] Gabriel Fajardo MD Type 2 diabetes mellitus with microalbuminuria, without long-term current use of insulin (Primary Dx); Benign essential hypertension; Stage 3b chronic kidney disease; Moderate Alzheimer's dementia with mood disturbance, unspecified timing of dementia onset from Last 3 Months Immunizations Immunization Administration Dates Next Due COVID-19 (Pre-05/12) Moderna Vaccine, Bivalent 6mo+ 05/06/2022 COVID-19 (Pre) Moderna Vaccine, mRNA, PF 04/13/2022,10/11/2020,09/13/2020 INFLUENZA, SPLIT VIRUS, TRIVALENT PF 03/21/2020, 05/20/2016 INFLUENZA, SPLIT VIRUS, TRIV ALENT W/ PRESERVATIVE IM 05/17/2015 Influenza High-Dose Quadriva lent Preservative Free IM 05/03/2023,04/16/2022,04/16/2021,03/14 Influenza High-Dose Trivalen t Preservative Free IM 04/01/2024,03/27/2018,04/11/2016,05/13 Influenza Trivalent Adjuvant ed Preservative free IM 03/12/2019 Influenza, Unspecified Formulation 05/03/2011 Pneumococcal conjugate PCV13 [...] Sign Reading Time Taken Comments Blood Pressure 130/42 02/23/2025 11:50 AM EDT Pulse 66 02/23/2025 11:50 AM EDT Temperature 35.9 C (96.6 F) 02/23/2025 11:50 AM EDT Respiratory Rate 16 02/23/2025 11:50 AM EDT Oxygen Saturation 94% 02/23/2025 11:50 AM EDT Inhaled Oxygen Concentration - - Weight 72.8 kg (160 lb 6.4 oz) 02/23/2025 11:50 AM EDT Height 166.3 cm (5' 5.47 ) 02/23/2025 11:50 AM E DT Body Mass Index 26.31 02/23/2025 11:50 AM EDT Plan of Treatment Upcoming Encounters Date Type Department Care Team (Late st Contact Info) Description 10/03/2025 11:30 AM EDT Office Visit [facility] Internal Medicine [address] [place] [address] Gabriel Fajardo MD [address] [place] [address] [email or web address] Health Maintenance Due Date Last Done Comments SMOKING Hx and SMOKELESS TOBACCO SCREENING 1959 COLOGUARD 1991 FIT TEST 1991 FOBT 1991 SIGMOIDOSCOPY 1991 VIRTUAL COLONOSCOPY 1991 COLONOSCOPY 03/02/2024 03/02/2019, 02/04/2014 COLORECTAL CANCER SCREENING 03/02/2024 DIABETIC EYE EXAM 01/06/2025 01/07/2024, , 01/07/2024, Additional history exists INFLUENZA VACCINE (#1) 2025 , 05/03/2023, 05/03/2023, Additional history exists COVID-19 VACCINE ( season) 2025 05/03/2023, 05/06/2022, 04/13/2022, Additional history exists BLOOD PRESSURE 08/26/2025 02/23/2025 HEMOGLOBIN A1C 09/08/2025 03/08/2025, 0 12/2024, 04/01/2024, Additional history exists DEPRESSION SCREENING 09/27/2025 09/27/2024, 09/17/19 23 URINE MICROALBUMIN/CREATININE RATIO 02/23/2026 02/23/2025, 05/30/2023, 05/30/2023, Additional history exists LIPID PANEL 03/08/2026 03/08/2025, 03/21, 05/30/2023, Additional history exists POTASSIUM LEVEL 05/03/2026 05/03/2025, 02/18, 09/27/2024, Additional history exists Adult Td,Tdap Booster 03/12/2028 03/12/2018 , 05/07/2012, 08/21/2003 PNEUMOCOCCAL VACCINES (50+ years) Completed 01/10/2015, 05/03/2011, 06/20/2002 ZOSTER VACCINES Completed 07/25/2019, 090 09/2018, 05/21/2012 HEPATITIS C SCREENING Completed 03/07/2020, [...] Procedure Name Priority Date/Time Associated Diagnosis Comments URINE SEDIMENT Routine 05/03/2025 9:41 AM EDT URINALYSIS W/REFLEX URINE CULTURE Routine 05/03/2025 9:41 AM EDT Stage 3b chronic kidney disease Benign essential hypertension Type 2 diabetes mellitus with microalbuminuria, without long-term current use of insulin CBC AND DIFFERENTIAL Routine 05/03/2025 9:25 AM EDT Stage 3b chronic kidney disease Benign essential hypertension Type 2 diabetes mellitus with microalbuminuria, without long-term current use of insulin COMPREHENSIVE METABOLIC PANEL Routine 05/03/2025 9:25 AM EDT Stage 3b chronic kidney disease Benign essential hypertension Type 2 diabetes mellitus with microalbuminuria, without long-term current use of insulin HEMOGLOBIN A1C Routine 03/08/2025 9:16 AM EDT Type 2 diabetes mellitus with microalbuminuria, without long-term current use of insulin LIPID PANEL Routine 03/08/2025 9:16 AM EDT Type 2 diabetes mellitus with microalbuminuria, without long-term current use of insulin COMPREHENSIVE METABOLIC PANEL Routine 03/08/2025 9:16 AM EDT Type 2 diabetes mellitus with microalbuminuria, 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 3b chronic kidney disease CBC AND DIFFERENTIAL Routine 03/08/2025 9:16 AM EDT Type 2 diabetes mellitus with microalbuminuria, 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 3b chronic kidney disease MICROALBUMIN/CREATININ E RATIO, RANDOM URINE Routine 02/23/2025 2:47 PM EDT Type 2 diabetes mellitus with microalbuminuria, 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 3b chronic kidney disease DIABETES EYE EXAM FOR RESULT ENTRY ONLY Routine 01/07/2024 HEPATITIS C ANTIBODY, QUALITATIVE Routine 03/07/2020 8:56 AM EDT Need for hepatitis C screening test COLONOSCOPY FOR RESULT ENTRY ONLY Routine 03/02/2019 from Last 3 Months or Most Recently Relevant to Health Maintenance Results * (ABNORMAL) Urinalysis w/reflex Urine Culture (05/03/2025 9:41 AM EDT) COLOR Yellow Yellow [facility] CLARITY Clear [facility] GLUCOSE Negative Negative [facility] BILI Negative Negative [facility] KETONES Negative Negative [facility] SPECIFIC GRAVITY 1.020 1.005 - 1.030 [facility] BLOOD Negative Negative [facility] PH 6.0 5.0 - 8.0 [facility] Protein-UA 2+(A) Negative [facility] NITRITE Negative Negative [facility] Leukocyte esterase, ur Negative Negative [facility] Urine (Urine) 05/03/2025 9:4 1 AM EDT 05/03/2025 9:44 AM EDT Gabriel Fajardo MD URINE ORDERABLES Final Result Performing Organization Address [facility] Co de Phone Number [address] [address] * (ABNORMAL) Urine sediment (05/03/2025 9:41 AM EDT) WBC 5-10(A) NONE SEEN /hpf [facility] RBC 3-5(A) NONE SEEN /hpf [facility] URINE EPITHELIAL 0-4(A) NONE SEEN [facility] MUCUS 1+(A) NONE SEEN /hpf [facility] BACTERIA Trace(A) NONE SEEN /hpf [facility] CAST 0-2 [facility] Comment:HYALINE CAST 05/03/2025 9:41 AM EDT 05/03/2025 9:44 AM EDT Gabriel Fajardo MD URINE ORDERABLES Final Result Performing Organization Address City/[facility]/ZIP Co de Phone Number [address] [address] * (ABNORMAL) Comprehensive metabolic panel (05/03/2025 9:25 AM EDT) Only the most recent of2 resultswithin the time period is included. SODIUM 143 133 - 146 mmol/L [facility] POTASSIUM 4.1 3.3 - 5.1 mmol/L [facility] CHLORIDE 103 96 - 108 mmol/L [facility] CO2 26 21 - 35 mmol/L [facility] BUN 29(H) 6 - 19 mg/dL [facility] CREATININE 2.20(H) 0.5 - 1.5 mg/dL [facility] GLUCOSE 128(H) 70 - 99 mg/dL [facility] ALBUMIN 4.6 3.9 - 4.8 g/dL [facility] TOTAL PROTEIN 7.5 6.5 - 8.0 g/dL [facility] CALCIUM 9.5 8.4 - 10.3 mg/dL [facility] ALKALINE PHOSPHATASE 165(H) 39 - 117 U/L [facility] TOTAL BILIRUBIN 0.4 0.0 - 1.2 mg/dL [facility] AST 36 0 - 37 U/L [facility] ALT 40 0 - 40 U/L [facility] GLOBULIN 2.9 1 - 4.8 g/dL [facility] EGFR 30(L) >59 mL/min/1.7 3m2 [facility] Comment:Estimated glomerular filtration rate calculated using the CKD-EPI refit equation. ANION GAP 18 10 - 20 mmol/L [facility] Blood 05/03/2025 9:25 AM EDT 05/03/2025 9:29 AM EDT us Gabriel Fajardo MD LAB BLOOD ORDERABLES Final Re sult [address] [address] * (ABNORMAL) CBC and differential (05/03/2025 9:25 AM EDT) Only the most recent of2 resultswithin the time period is included. WBC 9.07 4.00 - 11.00 K/uL [facility] RBC 4.43(L) 4.50 - 5.90 M/uL [facility] HGB 13.2(L) 13.5 - 17.5 g/dL [facility] HCT 40.6(L) 41.0 - 53.0 % [facility] PLT 219 150 - 450 K/uL [facility] MCV 91.6 80.0 - 100.0 fL [facility] MCH 29.8 27.0 - 31.0 pg [facility] MCHC 32.5 32.0 - 36.0 g/dL [facility] RDW 12.5 11.5 - 14.5 % [facility] MPV 11.0 8.4 - 12.0 fL [facility] NRBC 0.00 0.00 /100 WBCs [facility] ABSOLUTE NRBC 0.00 0.00 K/uL [facility] DIFF METHOD Auto [facility] NEUTS 59.1 48.0 - 76.0 % [facility] LYMPHS 27.8 18.0 - 41.0 % [facility] MONOS 9.2 4.0 - 11.0 % [facility] EOS 3.0 0.0 - 5.0 % [facility] BASOS 0.2 0.0 - 1.5 % [facility] Granulocytes, immature (%) 0.7 0.0 - 0.9 % [facility] ABSOLUTE NEUTS 5.37 1.92 - 7.60 K/uL [facility] ABSOLUTE LYMPHS 2.52 0.72 - 4.10 K/uL [facility] ABSOLUTE MONOS 0.83 0.16 - 1.10 K/uL [facility] ABSOLUTE EOS 0.27 0.00 - 0.50 K/uL [facility] ABSOLUTE BASOS 0.02 0.00 - 0.15 K/uL [facility] Granulocytes, immature 0.06 0.00 - 0.09 K/uL [facility] Blood 05/03/2025 9:25 AM EDT 05/03/2025 9:29 AM EDT us Gabriel Fajardo MD LAB BLOOD ORDERABLES Final Re sult [facility] [address] [place] [address] * (ABNORMAL) Hemoglobin A1c (03/08/2025 9:16 AM EDT) HEMOGLOBIN A1C 6.2(H) 4.3 - 5.8 % [facility] Blood 03/08/2025 9:16 AM EDT 03/08/2025 9:21 AM EDT Gabriel Fajardo MD LAB BLOOD ORDERABLES Final Re sult Performing Organization Address [facility] Co de Phone Number [address] [address] * (ABNORMAL) Lipid panel (03/08/2025 9:16 AM EDT) HDL 48 mg/dL [facility] Comment: Interpretation <40 mg/dL: Low HDL cholesterol (major risk factor for CHD) Greater than or equal to 60 mg/dL: High HDL cholesterol ( negative risk factor for CHD) HDL - cholesterol is affected by a number of factors, e.g. smoking, excerise, hormones, sex and age. CHOLESTEROL 210 0 - 240 mg/dL [facility] TRIGLYCERIDES 295(H) 30 - 160 mg/dL [facility] LDL 103 50 - 129 mg/dL [facility] Comment: LDL levels in terms of risk for coronary heart disease: <100 mg/dL: Optimal 100-129 mg/dL: Near or above optimal 130-159 mg/dL: Borderline high 160-189 mg/dL: High >190 mg/dL: Very High CARDIAC RISK RATIO 4.4 3.4 - 5.0 C [facility] Blood 03/08/2025 9:16 AM EDT 03/08/2025 9:20 AM EDT Gabriel Fajardo MD LAB BLOOD ORDERABLES Final Re sult Performing Organization Address [facility]/ZIP Co de Phone Number [address] [address] * (ABNORMAL) Microalbumin/creatinine ratio, random urine (02/23/2025 2:47 PM EDT) URINE MICROALBUMIN 65.6(H) 0 - 2.3 mg/dL [facility] URINE CREATININE 177 mg/dL [facility] MICROALB/CRE RATIO 370.6(H) 0 - 20 mg/g Cre [facility] Urine (Urine) 02/23/2025 2:4 7 PM EDT 02/23/2025 8:37 PM EDT Gabriel Fajardo MD URINE ORDERABLES Final Result Performing Organization Address City/[facility]/ZIP Co de Phone Number [address] [address] * DIABETES EYE EXAM FOR RESULT ENTRY ONLY (01/07/2024) EYE EXAM no retinopathy Historical Provider HEALTH MAINTENANCE Final Result * Hepatitis C antibody, qualitative (03/07/2020 8:56 AM EDT) HCV NON-REACTIV E NON-REACTI VE [facility] Blood 03/07/2020 8:56 AM EDT 03/07/2020 10:57 AM EDT Gabriel Fajardo MD LAB BLOOD ORDERABLES Final Re sult Performing Organization Address [facility] Co de Phone Number [address] [address] * COLONOSCOPY FOR RESULT ENTRY ONLY (03/02/2019) Historical Provider HEALTH MAINTENANCE Final Result from Last 3 Months or Most Recently Relevant to Health Maintenance Insurance MEDICARE PART A & B [employer] MEDEX SUPPLEMENT MEDICARE PART A & B [employer] MEDEX SUPPLEMENT MEDICARE PART A & B [employer] MEDEX SUPPLEMENT MEDICARE PART A & B [employer] MEDEX SUPPLEMENT MEDICARE PART A & B [employer] MEDEX SUPPLEMENT MEDICARE PART A & B [employer] MEDEX SUPPLEMENT MEDICARE PART A & B [employer] MEDEX SUPPLEMENT MEDICARE PART A & B [employer] MEDEX SUPPLEMENT MEDICARE PART A & B [facility] MEDEX SUPPLEMENT 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 Relationship Specialty Start Date End Date Gabriel Fajardo MD [address] [place] [address] PCP - General 05/08/17 Gabriel Fajardo MD [address] [place] [phone] [email or web address] Insurance Assigned Provider 10/25/23 Felice Pickard DPM [address] [place] [address] Podiatry 09/07/19 Noel Last MD [address] [place] [address] [place] [id number] Ophthalmology 03/10/20 Bennett Daniels MD [address] [place] [phone] Pulmonary Disease 03/12/21 Additional Source Comments The information contained in this document represents components of the legal health record. It is not the complete legal health record.[facility]
--- OUTSIDE RECORDS SUMMARY | 2025-05-13 13:43 | XMS_ITS | Patient Health Record ---
[facility] Organization [facility] Address [address] [place] [address] Care Team Providers Care Mortar Mixer Name Role Phone Gabriel Fajardo MD Primary Care Provider Unavaila Felice Bullard Unavailable [phone] Allergies No Known Allergies Results Component Value Reference Range Notes HEMOGLOBIN A1C (GLYCOHEMOGLO BIN) Reviewed date:09/03/2024 11:33:14 AM Interpretation: Performing Lab: Notes/Report: HEMOGLOBIN A1C % (HH) 7.0 Reason For Referral No Information Medications Medication SIG (Take, Route, Frequency, Duration) Notes Start Date End Date Status Simvastatin 10 MG 1 tablet in the evening Orally Once a day; Duration: 30 day(s) Active Dulera 100-5 MCG/ACT as directed Inhalation Active Multivitamin Not-Dante ing Centrum Silver as directed Orally Active Spiriva HandiHaler 18 MCG 1 capsule Inha lation Once a day Not-Taking Claritin Active Fish Oil 1000 MG 1 capsule Orally Onc e a day; Duration: 30 day(s) Active Garlic-Vit B6-Vit B12-FA Active hydroCHLOROthiazide Active Incruse Ellipta Acti ve metFORMIN HCl 500 MG 1 tablet with meals Orally Twice a day; Duration: 30 day(s) Active Ammonium Lactate 12 % 1 application Externally to affected areas of dry skin to feet except for between the toes Twice a day; Duration: 30 days Active Extra Depth Orthopedic Shoes, (1) Pair With (3) Pair Custom Heat Molded Multidensity Innersoles Dx: NIDDM/PVD(E11.51), Hammertoe Foot Deformity(M20.41,M20. 42), Preulcerative Skin Lesion(s)(L85.1) Wear Daily; Duration: 365 days Active Donezepil HCl-10 mg Active Claravis Not-Taking Immunizations Vaccine Route Administration Date Status Comme nts Influenza Unknown 05/20/2016 Administered Influenza Unknown 03/27/2018 Administered Influenza Unknown 03/21/2022 Administered Influenza Unknown 03/21/2024 Administered Pneumococcal Unknown 05/20/2016 Administered COVID-19 Moderna [...] Problem Acquired hammer toe of right foot (4333046332560 105) Other hammer toe(s) (acquired), right foot (M20.41) Active confirmed Response to treatment,I mprovement Problem Type 2 diabetes mellitus with peripheral angiopathy (472453053) Type 2 diabetes mellitus with diabetic peripheral angiopathy without gangrene (E11.51) Active confirmed Problem Acquired hammer toe of left foot (1131129439736 103) Other hammer toe(s) (acquired), left foot (M20.42) Active confirmed Response to treatment,I mprovement Vital Signs Respiratory Rate 130 /min 12/10/2024 Blood pressure diastolic 50 mm Hg 03/22/2025 Height 5 ft 6 in in 03/22/2025 Blood pressure systolic 140 mm Hg 03/22/2025 Weight 164 lbs 03/22/2025 BMI 26.47 kg/m2 03/22/2025 Procedures Procedure Date Ordered Date Performed Result Body Sit e 77888-JOACBRB NAIL, 6 OR MORE 09/03/2024 N/A 94783-Dypc Destruction, 1-14 09/03/2024 N/A 79063-KMKY SKIN LESIONS, OVER 4 09/03/2024 N/A 98264-QUCBJEI NAIL, 6 OR MORE 12/10/2024 N/A 32418-Ipro Destruction, 1-14 12/10/2024 N/A 34562-AXQG SKIN LESIONS, OVER 4 12/10/2024 N/A 74406-GQNDMEN NAIL, 6 OR MORE 03/22/2025 N/A 94586-HHHV SKIN LESIONS, OVER 4 03/22/2025 N/A Encounters Encounter Location Date Provider Diagnosis [address] [address] 09/03/2024 Felice Melly Type 2 diabetes mellitus with diabetic peripheral angiopathy without gangrene E11.51 ; Plantar wart B07.0 ; Tinea unguium B35.1 ; Pain in right toe(s) M79.674 ; Pain in left toe(s) M79.675 ; Other hammer toe(s) (acquired), right foot M20.41 ; Other hammer toe(s) (acquired), left foot M20.42 and Pain in left foot M79.[address] [address] 12/10/2024 Felice Pickard Type 2 diabetes mellitus with diabetic peripheral angiopathy without gangrene E11.51 ; Plantar wart B07.0 ; Tinea unguium B35.1 ; Pain in right toe(s) M79.674 ; Pain in left toe(s) M79.675 ; Other hammer toe(s) (acquired), right foot M20.41 ; Other hammer toe(s) (acquired), left foot M20.42 and Pain in left foot M79.[address] [address] 03/22/2025 Felice Nobleunier Type 2 diabetes mellitus with diabetic peripheral angiopathy without gangrene E11.51 ; Tinea unguium B35.1 ; Pain in right toe(s) M79.674 ; Pain in left toe(s) M79.675 and Xerosis of skin L85.3 Assessments Encounter Date Diagnosis (ICD Code) Assessment Notes Treatment Notes Treatment Clinical Notes Section Notes 09/03/2024 Type 2 diabetes mellitus with diabetic peripheral angiopathy without gangrene (ICD-10 - E11.51) 09/03/2024 Plantar wart (ICD-10 - B07.0) 12/10/2024 Type 2 diabetes mellitus with diabetic peripheral angiopathy without gangrene (ICD-10 - E11.51) 12/10/2024 Plantar wart (ICD-10 - B07.0) 03/22/2025 Type 2 diabetes mellitus with diabetic peripheral angiopathy without gangrene (ICD-10 - E11.51) 03/22/2025 Tinea unguium (ICD-10 - B35.1) 03/22/2025 Pain in right toe(s) (ICD-10 - M79.674) 12/10/2024 Tinea unguium (ICD-10 - B35.1) 09/03/2024 Tinea unguium (ICD-10 - B35.1) 09/03/2024 Pain in right toe(s) (ICD-10 - M79.674) 12/10/2024 Pain in right toe(s) (ICD-10 - M79.674) 03/22/2025 Pain in left toe(s) (ICD-10 - M79.675) 12/10/2024 Pain in left toe(s) (ICD-10 - M79.675) 09/03/2024 Pain in left toe(s) (ICD-10 - M79.675) 09/03/2024 Other hammer toe(s) (acquired), right foot (ICD-10 - M20.41) Patient Educated with: DIABETIC FOOT CARE INSTRUCTIONS.p df (DIABETIC FOOT CARE INSTRUCTIONS.p df) 12/10/2024 Other hammer toe(s) (acquired), right foot (ICD-10 - M20.41) 03/22/2025 Xerosis of skin (ICD-10 - L85.3) 12/10/2024 Other hammer toe(s) (acquired), left foot (ICD-10 - M20.42) 09/03/2024 Other hammer toe(s) (acquired), left foot (ICD-10 - M20.42) 09/03/2024 Pain in left foot (ICD-10 - M79.672) 12/10/2024 Pain in left foot (ICD-10 - M79.672) Plan Of Treatment Pending Test Test Name Order Date Hemoglobin A1c 03/24/2015 74362-IVNVCRI NAIL, 6 OR MORE 09/22/2015 72478-MQGZBGY NAIL, 6 OR MORE 03/24/2015 98338-NOFCTLI NAIL, 6 OR MORE 03/22/2016 96531-TAGGYIT NAIL, 6 OR MORE 09/20/2016 63434-SNETXVP NAIL, 6 OR MORE 12/08/2012 06258-MIOOAVE NAIL, 6 OR MORE 03/23/2013 10403-DTCBSUL NAIL, 6 OR MORE 09/21/2013 58272-WCPAKXU NAIL, 6 OR MORE 03/25/2014 89963-AZQNENL NAIL, 6 OR MORE 09/23/2014 70957-XDMAHWI NAIL, 6 OR MORE 03/28/2017 59434-YOCSJWB NAIL, 6 OR MORE 10/17/2017 64576-FYWRSKP NAIL, 6 OR MORE 04/17/2018 13981-STCKGPE NAIL, 6 OR MORE 10/09/2018 11600-NTGXISV NAIL, 6 OR MORE 04/06/2019 06596-JGFUBKA NAIL, 6 OR MORE 10/05/2019 19865-RJSMUHY NAIL, 6 OR MORE 04/07/2020 49060-YENCMPY NAIL, 6 OR MORE 10/06/2020 42299-GGMUZJD NAIL, 6 OR MORE 04/06/2021 45784-LLMGBHZ NAIL, 6 OR MORE 11/09/2021 81154-EZMFALS NAIL, 6 OR MORE 06/18/2022 50047-YUVEZIR NAIL, 6 OR MORE 12/17/2022 17340-TKMGPPQ NAIL, 6 OR MORE 06/17/2023 99246-QBQUEYU NAIL, 6 OR MORE 02/24/2024 30512-KRLKFAQ NAIL, 6 OR MORE 09/03/2024 19935-MSSSULK NAIL, 6 OR MORE 12/10/2024 88136-WMJXMQW NAIL, 6 OR MORE 03/22/2025 14894-Rvgq Destruction, 1-14 12/08/2012 88559-Qhgp Destruction, 1-14 12/10/2024 49352-Arsm Destruction, 1-14 09/03/2024 10933-Fffp Destruction, 1-14 02/24/2024 37662-Nrrx Destruction, 08-0306/17/2023 18384-Szrn Destruction, 08-0312/17/2022 64826-Hpte Destruction, 08-0306/18/2022 21828-Iuha Destruction, 08-0311/09/2021 77489-Fjit Destruction, 08-0304/06/2021 94415-Zvav Destruction, 08-0310/06/2020 98692-Zbjt Destruction, 08-0304/07/2020 78872-Juua Destruction, 08-0310/05/2019 07865-Yaxd Destruction, 08-0304/06/2019 48542-Fnwb Destruction, 08-0310/09/2018 94445-Fpsh Destruction, 08-0304/17/2018 98387-Icbt Destruction, 08-0310/17/2017 78228-Wblo Destruction, 08-0309/23/2014 89004-Qwkw Destruction, 08-0303/25/2014 62685-Bttp Destruction, 08-0309/21/2013 15136-Fonb Destruction, 08-0303/23/2013 63218-Hytm Destruction, 08-0309/20/2016 47905-Mcaf Destruction, 08-0303/28/2017 39388-Fldw Destruction, 08-0303/22/2016 89295-Wiml Destruction, 08-0303/24/2015 82697-Pykg Destruction, 08-0309/22/2015 85708-IMFK SKIN LESIONS, OVER 4 06/18/20 22 94833-JRXJ SKIN LESIONS, OVER 4 12/18/19 23 50897-TKSE SKIN LESIONS, OVER 4 06/17/20 23 30279-QVXB SKIN LESIONS, OVER 4 02/24/20 24 77166-YZEZ SKIN LESIONS, OVER 4 09/03/19 25 68704-HKCJ SKIN LESIONS, OVER 4 12/11/19 25 31519-NAVC SKIN LESIONS, OVER 4 03/22/20 25 90224-Tbmg. Subungual Hematoma 4 Next Appt Details Provider Name:Felice Pickard , 07/05/2025 03:30:00 PM, [address] [place] [address], [place], [address], Insurance Providers Payer Name Payer Address Payer Phone Subscriber Number Group Number Insured Name Patient Relationship to Insured Coverage Start Date Coverage End Date Medicare National [employer] [address] [place] [address] [id number] Justin Barclay Self - patient is the insured 3 [employer] Blue [employer] [address] [place] [address] [id number] Justin Barclay Self - patient is the insured Medical (General) History Medical History History ICD Code lung disease measles chicken pox cholesterol Diabetic type ll Surgical History Surgery Date(Month/Year) appendectomy 1963 colonoscopy 01/2014 cataract surgery 09/28/2018
--- OUTSIDE RECORDS SUMMARY | 2025-05-13 13:43 | XMS_ITS | Clinical Summary ---
Author Organization [facility] Address [address] [address] Phone Care Team Providers Care Master Motorcycle Technician Name Role Phone Gabriel Fajardo MD Primary Care Provider [phone] Allergies No known active allergies Medications amLODIPine [...] puff 1 (one) time each day Active [place]-3 Fatty Acids 1400 MG capsule Take 1 [...] Care Team (Late st Contact Info) Description 06/11/2025 Orders Only [facility] [address] [phone] Sebastián Timmons MD [address] [phone] Stage 3a chronic kidney disease (HCC); Proteinuria, not otherwise specified; Nephrolithiasis; Hypertension; Dyslipidemia; Diabetes mellitus, not otherwise specified (HCC); Cyst of kidney 07/05/2025 8:20 AM EST Office Visit [facility] [address] [address] Sebastián Timmons MD [address] [address] Health Maintenance Due Date Last Done Comments Diabetes: Ophthalmology Exam 06/18/2023 Diabetes: Pedal Pulse Checked 06/18/2023 Diabetes: Sensory Foot Exam 06/18/2023 Diabetes: Visual Foot Exam 06/18/2023 Diabetes: Hemoglobin A1C 08/30/2023 05/30/2023 Influenza Vaccine (#1) 2025 , 03/21/2020, 03/12/2019, Additional history exists Pneumococcal Vaccine: [...] 9.5 8.7 - 10.7 mg/dL eGFR Non-Afr [place] Islander 41 Total Bilirubin 0.5 MG/DL ALT (SGPT) 55 U/L AST (SGOT) 58 U/L Alkaline Phosphatase 112 U/L Hemoglobin A1C 6.2(A) 4.0 - 6.0 05/30/2023 us Historical Provider LAB BLOOD ORDERABLES Edit ed Result - Final from Last 3 Months or Most Recently Relevant to Health Maintenance Insurance Medicare [facility] Medicare [facility] Care Teams Master Motorcycle Technician Relationship Specialty Start Date End Date Gabriel Fajardo MD [address] [place] [address] PCP - General Internal Medicine 06/05/23
--- NOTE | 2025-06-07 09:24 | HO.ANESPROP2 ---
Documented by User: Darcy Newsome NP 06/07/25 09:38 HPI - Anesthesia Eval Consult details Narrative: 80 yr old male for colonoscopy Frontotemporal dementia: follows [facility], last visit Apr 2025, stable COPD: Uses O2 at bedtime, follows [facility], last visit 02/2025 discuss clearance for colonoscopy, patient has severe COPD, FEV1 is 31%, O2 sats is 91 to 95% on room air. He will continue Trelegy and as needed albuterol. Last CT scan was in 2023. In terms of colonoscopy for polyps, I see no contraindication from pulmonary point of view for it. He needs to be monitored closely during the procedure . [facility] Active Problems Active Problems: All Active Problems (Updated 02/07/25 @ 11:51 by Paulette Bernal CNP) Frontotemporal lobar degeneration (Acute) MCI (mild cognitive impairment) (Acute) Hypoxia (Acute) COPD exacerbation (Acute) Acute on chronic renal failure (Acute) Acute bronchitis with COPD (Acute) Influenza A (Acute) Past Medical History Medical History Frontotemporal lobar degeneration MCI (mild cognitive impairment) Early onset Alzheimer's dementia COPD (chronic obstructive pulmonary disease) CKD (chronic kidney disease) Diabetes mellitus HTN (hypertension) Surgical History Surgical History Hx of colonoscopy Cataract Hx of appendectomy Social History Social History Household Members: Family Housing: House Are you a primary acute care certified nursing assistant to a significant other at home: No Do you presently have visiting nurse or other home services: No Patient Tobacco Use Status: Former Tobacco user Tobacco use type: Cigarette Cigarettes Per Day: 1 Years Smoked: >50 Have you been hit, kicked, punched, or otherwise hurt by someone within the past year? If so, by whom?: No Are you DNR?: No Advance Directives: No Advance Directives Information Provided: Yes service: No Current occupational status: retired Meds Allergies Allergy/AdvReac Type Severity Reaction Status Date / Time No Known Allergies (No Known Allergy Verified 06/09/25 07:10 Allergies*) Home Medications ?Medication ?Instructions ?Recorded ?Confirmed ?Last Taken ?Type albuterol sulfate 90 mcg/actuation 2 puff inhalation Q6H PRN wheezing 07/23/22 06/07/25 Unknown History aerosol inhaler amlodipine 10 mg tablet 1 tab PO DAILY 07/23/22 06/07/25 07/23/22 History cyanocobalamin (vitamin B-12) 1,000 mcg PO DAILY 07/23/22 06/07/25 07/23/22 History 1,000 mcg tablet garlic 1,000 mg capsule 2,000 mg PO DAILY 07/23/22 06/07/25 07/23/22 History hydrochlorothiazide 12.5 mg tablet 1 tab PO DAILY 07/23/22 06/07/25 07/23/22 History ketoconazole 2 % shampoo 1 appl topical MO 07/23/22 06/07/25 07/22/22 History multivitamin 1 tab PO DAILY 07/23/22 06/07/25 07/23/22 History omega 1-las-khp-fish oil 1,000 mg 1 cap PO DAILY 07/23/22 06/07/25 06/07/25 History (120 mg-180 mg) capsule (Fish Oil) simvastatin 10 mg tablet 1 tab PO BEDTIME 07/23/22 06/07/25 07/22/22 History umeclidinium 62.5 mcg/actuation 1 puff inhalation DAILY 07/23/22 06/07/25 07/23/22 History blister powder for inhalation (Incruse Ellipta) fluticasone fur. 100 mcg-umeclid 1 ea inhalation DAILY 11/23/24 06/07/25 Unknown History 62.5 mcg-vilant 25 mcg inhalat.powder (Trelegy Ellipta) ipratropium bromide 21 mcg (0.03 1 spray intranasal DAILY 11/23/24 06/07/25 Unknown History %) nasal spray loratadine 10 mg tablet (Claritin) 10 mg PO DAILY 11/23/24 06/07/25 Unknown History Exam Pertinent Lab Results Pertinent Lab Results: 02/2025 WBC 4.00 - 11.00 K/uL 10.34 RBC 4.50 - 5.90 M/uL 4.07?Low? HGB 13.5 - 17.5 g/dL 12.2?Low? HCT 41.0 - 53.0 % 38.2?Low? PLT 150 - 450 K/uL 224 SODIUM 133 - 146 mmol/L 138 POTASSIUM 3.3 - 5.1 mmol/L 4.3 CHLORIDE 96 - 108 mmol/L 101 CO2 21 - 35 mmol/L 25 BUN 6 - 19 mg/dL 32?High? CREATININE 0.5 - 1.5 mg/dL 2.3?High? GLUCOSE 70 - 99 mg/dL 132?High? Documented by User: Mary Kay Guevara MD 06/09/25 08:51 PMFSH Past Medical History Medical History Frontotemporal lobar degeneration MCI (mild cognitive impairment) Early onset Alzheimer's dementia COPD (chronic obstructive pulmonary disease) CKD (chronic kidney disease) Diabetes mellitus HTN (hypertension) Family History Family history of problems with anesthesia: No Surgical History Surgical History Hx of colonoscopy Cataract Hx of appendectomy History of Problems with Anesthesia: No Social History Social History Household Members: Family Housing: House Are you a primary acute care certified nursing assistant to a significant other at home: No Do you presently have visiting nurse or other home services: No Patient Tobacco Use Status: Former Tobacco user Tobacco use type: Cigarette Cigarettes Per Day: 1 Years Smoked: >50 Have you been hit, kicked, punched, or otherwise hurt by someone within the past year? If so, by whom?: No Are you DNR?: No Advance Directives: No Advance Directives Information Provided: Yes service: No Current occupational status: retired Meds Allergies Allergy/AdvReac Type Severity Reaction Status Date / Time No Known Allergies (No Known Allergy Verified 06/09/25 07:10 Allergies*) Home Medications ?Medication ?Instructions ?Recorded ?Confirmed ?Last Taken ?Type albuterol sulfate 90 mcg/actuation 2 puff inhalation Q6H PRN wheezing 07/23/22 06/07/25 Unknown History aerosol inhaler amlodipine 10 mg tablet 1 tab PO DAILY 07/23/22 06/07/25 07/23/22 History cyanocobalamin (vitamin B-12) 1,000 mcg PO DAILY 07/23/22 06/07/25 07/23/22 History 1,000 mcg tablet garlic 1,000 mg capsule 2,000 mg PO DAILY 07/23/22 06/07/25 07/23/22 History hydrochlorothiazide 12.5 mg tablet 1 tab PO DAILY 07/23/22 06/07/25 07/23/22 History ketoconazole 2 % shampoo 1 appl topical MO 07/23/22 06/07/25 07/22/22 History multivitamin 1 tab PO DAILY 07/23/22 06/07/25 07/23/22 History omega 6-msb-wge-fish oil 1,000 mg 1 cap PO DAILY 07/23/22 06/07/25 06/07/25 History (120 mg-180 mg) capsule (Fish Oil) simvastatin 10 mg tablet 1 tab PO BEDTIME 07/23/22 06/07/25 07/22/22 History umeclidinium 62.5 mcg/actuation 1 puff inhalation DAILY 07/23/22 06/07/25 07/23/22 History blister powder for inhalation (Incruse Ellipta) fluticasone fur. 100 mcg-umeclid 1 ea inhalation DAILY 11/23/24 06/07/25 Unknown History 62.5 mcg-vilant 25 mcg inhalat.powder (Trelegy Ellipta) ipratropium bromide 21 mcg (0.03 1 spray intranasal DAILY 11/23/24 06/07/25 Unknown History %) nasal spray loratadine 10 mg tablet (Claritin) 10 mg PO DAILY 11/23/24 06/07/25 Unknown History Exam Airway Mallampati Class: II TM Dist: >3cm Neck ROM: Limited Heart: rrr Lungs: cta Assessment and Plan Assessment Anesthesia Assessment: Anesthesia Plan Discussed (with , pt oriented only to person) and Chart Reviewed Final Anesthetic Review Family History of Problems with Anesthesia: No History of Problems with Anesthesia: No NPO: Yes ASA Class: III Final Preanesthetic Review: No Changes in Pt Med Stat, Meds/Allgs Chart Reviewed, Consent Obtained/Reviewed and Anes Risks/Benef Reviewed Patient Risk: Intermediate Procedure Risk: Low Anesthetic Plan Anesthetic Plan: MAC: Disposition: Standard PACU
[2025-06-07 13:44] VITALS: BMI 25.7
[2025-06-09] MEDS: Lactated Ringers 1,000 ML 100 ML IVCONT (07:18)
[2025-06-09 07:29] VITALS: BMI 25.3
[2025-06-09 07:34] VITALS: BP 152/86; PULSE 62; RESP 18; TEMP 36.6; O2SAT 95
--- NOTE | 2025-06-09 07:46 | MHC.SHP ---
Pre-Procedural Eval Section A - 24 Hr Update-Section A only Date of Service: 06/09/25 Section B - Complete if H&P > 30 days Chief Complaint: hx colon polyps,screening Relevant Family History (Specify if Yes): No Relevant Social History: None Present Medications: see Short Stay Collaborative assessment Medical History: Significant History (Frontotemporal lobar degeneration MCI (mild cognitive impairment) Early onset Alzheimer's dementia COPD (chronic obstructive pulmonary disease) CKD (chronic kidney disease) Diabetes mellitus HTN (hypertension)) History of Previous Operations: Relevant previous surgery/procedure and date(s) (Hx of colonoscopy Cataract Hx of appendectomy) Allergies: Allergies Allergy/AdvReac Type Severity Reaction Status Date / Time No Known Allergies (No Known Allergy Verified 06/09/25 07:10 Allergies*) Review of Systems Sugical H&P ROS: Negative: Constitution, Cardiovascular, Respiratory, Neurological, Psychiatric, Hem-Onc, Allergic/Immunologic, Gastrointestinal, Genitourinary, Musculoskeletal, Integumentary, Endocrine and Eyes/Ears/Nose/Throat Exam Surgical H&P Exam: Normal: HEENT, Normal: Heart, Normal: Lungs, Normal: Extremities, Normal: Abdomen, Normal: Skin and Normal: Neurological Plan Diagnosis/Plan: Unchanged I have reviewed the history and physical and performed a pertinent physical examination on my patient. No changes have occurred unless specified. Time Spent With Patient Time: Total time managing care of this patient today ____ minutes.
--- NOTE | 2025-06-09 09:17 | HO.OPN-COLON ---
Colonoscopy Operative Note Operative Note Date of Service: 06/09/25 Narrative: Operative Information Procedure Description: Colonoscopy Indication: screening Anesthesia: MAC COLONOSCOPY Instrument: Olympus variable stiffness pediatric scope 190L Colonoscopy Monitoring: Vital signs and clinical assessment, continuous EKG monitoring, Pulse oximetry, Carbon Dioxide monitoring and blood pressure monitoring were done throughout the procedure. Colon withdrawal time was 16 minutes. Procedure: The patient was placed in the left lateral decubitis position and pre-procedure medications were administered. After a digital rectal examination of the ano-rectum, the video colonoscope was inserted into the rectum and advanced through the colon to the cecum/TI. The colonoscope was slowly withdrawn in a retrograde panoramic fashion and the colon mucosa was carefully examined including a retroflexed view of the rectum. Findings and interventions are described below. Procedure Difficulty: easy Findings: Terminal Ileum-normal Cecum:normal Ascending Colon: x 2 sessile polyps 5-7 mm removed with cold snare Transverse Colon -normal Descending Colon: 12-14 mm V shaped sessile polyp lifted with eleview and then removed piece meal with cold snare, x 1 clip applied. 4-6 mm sessile polyp removed with cold forceps Sigmoid Colon: mild diverticulosis Rectum: Retroflexion with small internal hemorrhoids seen, grade I, x 1 sessile polyp 5-7 mm removed with cold forceps Anorectum - normal Intervention: cold snare and eleview for EMR, cold forceps, cold snare Colon preparation: Weinert Bowel Preparation Scale Right colon; 2 Transverse colon: 2 Left colon; 2 (0 = Unprepared colon segment with mucosa not seen due to solid stool that cannot be cleared. 1 = Portion of mucosa of the colon segment seen, but other areas of the colon segment not well seen due to staining, residual stool and/or opaque liquid. 2 = Minor amount of residual staining, small fragments of stool and/or opaque liquid, but mucosa of colon segment seen well. 3 = Entire mucosa of colon segment seen well with no residual staining, small fragments of stool or opaque liquid) Impression and Post Procedure Diagnosis: diverticulosis colon polyps x 5 internal hemorrhoids Plan: High fiber diet leaflet Avoid straining at stool, epsom salts and sitz bath, anusol supps or cream Repeat Colonoscopy in 3 years if health allows and patient desires or earlier if clinically indicated Above findings were reviewed with the patient and relevant handouts were provided if indicated.
[2025-06-09 09:23] VITALS: BP 97/45; PULSE 57; RESP 18; TEMP 36.1; O2SAT 95
[2025-06-09 09:38] VITALS: BP 142/64; PULSE 56; RESP 18; TEMP 36.2; O2SAT 96
== END 2025-06-09 10:09 | disposition home or self-care (01) ==
PROVIDERS: Visit Provider Internal Medicine Gastroenterology
PROC: 0DJD8ZZ Inspection of Lower Intestinal Tract, Via Natural or Artificial Opening Endoscopic (ICD-10-PCS; CPT 45378; principal; 2025-06-09 08:30)
DX: Z12.11 Encounter for screening for malignant neoplasm of colon (principal); Z86.0100 Personal history of colon polyps, unspecified; K59.01 Slow transit constipation; K57.30 Diverticulosis of large intestine without perforation or abscess without bleeding; K64.0 First degree hemorrhoids; D12.7 Benign neoplasm of rectosigmoid junction; D12.2 Benign neoplasm of ascending colon; D12.4 Benign neoplasm of descending colon
CPT/HCPCS: 45380; 45385; 45381; 88305; J2003; J2704

== ENCOUNTER → 2025-06-09 06:45 | Outpatient (BNV) | payer MEDICARE, SELFPAY | PROVIDERS: Visit Provider Internal Medicine Gastroenterology | DX: Z12.11 Encounter for screening for malignant neoplasm of colon (principal); D12.2 Benign neoplasm of ascending colon; D12.4 Benign neoplasm of descending colon; D12.8 Benign neoplasm of rectum; K57.30 Diverticulosis of large intestine without perforation or abscess without bleeding; K64.0 First degree hemorrhoids | CPT/HCPCS: 45380; 45385 ==